=== PATIENT | male | born 1940 | race Caucasian/White ===

== ENCOUNTER 2021-09-09 02:23 | Outpatient (CLI) | payer MEDICARE, MEDICAID, SELFPAY ==
--- NOTE | 2021-09-09 07:45 | DI.US_ITS ---
Exam(s) US HERNIA EXAM: US HERNIA CLINICAL HISTORY: Right inguinal pain,? hernia,r10.31. TECHNIQUE: Ultrasound was performed using standard protocol. COMPARISON: No exams were available for comparison FINDINGS: Sonographic assessment utilizing grayscale and color Doppler imaging was performed and targeted to th e area of clinical concern. Targeted areas right groin. Left groin was also scanned for comparison purposes. There is no evidence of obvious inguinal hernia on the right side. However, multiple enlarged lymph nodes in the right groin are noted, the largest measuring 3.4 by 1.1 x 2.1 cm and 4.1 x 0.8 x 1.0 cm. We then scanned the left groin for comparison purposes. This also revealed enlarged lymph nodes, the largest measuring 4.4 x 1.0 x 2.0 cm. IMPRESSION: No obvious inguinal hernia but there are enlarged lymph nodes in both groin regions noted. DATA REPOSITORY:
== END 2021-09-09 02:43 ==
PROVIDERS: PCP Emergency Medicine; Visit Provider Nurse Practitioner Family
DX: R10.31 Right lower quadrant pain (principal); R59.0 Localized enlarged lymph nodes
CPT/HCPCS: 76857

== ENCOUNTER 2021-09-23 00:32 | Outpatient (CLI) | payer MEDICARE, MEDICAID, SELFPAY ==
--- NOTE | 2021-09-23 07:30 | DI.CT_ITS ---
Exam(s) CT ABDOMEN PELVIS W EXAM: CT ABDOMEN PELVIS W CLINICAL HISTORY: inguinal nodes,abnl wt loss, r63.4,r59.0. TECHNIQUE: Imaging Protocol: Axial computed tomography images with coronal and sagittal reformatted images were created and reviewed CONTRAST MATERIAL: Intravenous: Omnipaque 100cc Oral: Yes COMPARISON: CT CHEST FOR PULMONARY EMBOLUS from 07/21/2017 FINDINGS: VISUALIZED LUNG BASES: There is a small 4 millimeter nodule in the lateral right lung base lateral ba bernadine segment.. ABDOMEN: There is no ascites. There is abnormal density in the posterior wall of the stomach just beyond the GE junction region measuring approximately 3.6 x 2.6 cm. No other focal findings in the stomach. No bowel obstruction. No free air. No abscess there is anterior abdominal wall pelvic measures. No a cute hernia at this time. No inguinal hernia. LIVER: There are no focal hepatic lesions evident . GALLBLADDER/BILIARY: No obvious gallbladder pathology. CBD is not dilated. PANCREAS: No evidence of pancreatic mass nor dilatation of the pancreatic duct. SPLEEN: Spleen is not enlarged. No obvious intrasplenic lesions. Splenic and portal veins are paten t. ADRENALS: There are no significant adrenal masses. KIDNEYS:No cysts evident. No solid renal masses. No calculi nor hydronephrosis.. ABDOMINAL AORTA: Upper normal diameter. LYMPH NODES:There is no retroperitoneal nor paraaortic adenopathy. ABDOMINAL WALL: Anterior abdominal wall hernia mesh in the pelvis noted. GI: There is abnormal density in the posterior wall of the stomach just beyond the GE junction. Poss ible neoplasm. This measures approximately 3.6 x 2.6 cm. PELVIS: GI: No evidence of appendicitis.Sigmoid diverticulosis. No obvious acute diverticulitis. LYMPH NODES: No intrapelvic adenopathy. There are slightly enlarged bilateral inguinal lymph nodes b ut these contain fatty marylin and are probably benign. REPRODUCTIVE: Prostate size is upper normal. Seminal vesicles unremarkable. Urinary bladder is not distended URINARY BLADDER: No calculi nor obvious masses evident OSSEOUS: Channel from prior hardware in the left hip noted. Degenerative changes. No fractures nor ominous osseous lesions. IMPRESSION: 1. There is abnormal density in the posterior wall of the stomach just distal to the GE junction, thi s measuring approximately 3.6 x 2.6 cm. First consideration is for malignancy. Endoscopy recommende d. 2. No regional adenopathy. No lesions seen in the liver. There is no ascites. 3. Anterior abdominal wall hernia mesh in the pelvis noted. 4. Slightly prominent but benign-appearing lymph nodes in both inguinal regions. RADIATION DOSE DELIVERED: 922.31mGy.cm Total DLP DATA REPOSITORY: All CT scans at this facility are submitted to the National Radiology Data Registry (NRDR) Dose Index Registry (DIR) with the [employer] (A[employer]). RADIATION OPTIMIZATION: All CT scans at this facility use at least one of these dose optimization te chniques: automated exposure control; mA and/or kV adjustment per patient size (includes targeted exa ms where dose is matched to clinical indication); or iterative reconstruction.
[2021-09-23 09:53] LABS: Abs Immature Grans 0.06 10^3/uL (0.0-0.06); Absolute Basophil Count 0.08 10^3/uL (0.0-0.2); Absolute Eosinophil Count 0.65 10^3/uL (0.0-0.7); Absolute Monocyte Count 1.14 10^3/uL (0.1-0.8); Absolute Neutrophil Count 6.86 10^3/uL (1.2-6.7); Basophils % 0.6; Eosinophils % 5.1; HCT 44.5 % (40.0-50.0); HGB 14.2 g/dL (13.5-17.5); Immature Grans % 0.5; Lymphocytes % 31.3; MCH 29.4 pg (27.0-33.0); MCHC 31.9 % (32.0-36.0); MCV 92.1 fL (80-95); MPV 9.8 fL (8.0-11.0); Monocytes % 8.9; Neutrophils % 53.6; Nucleated RBC 0 %; Platelet Count 195 10^3/uL (130-400); RBC 4.83 10^6/uL (4.36-5.78); RDW 14.2 % (11.8-14.1); RDW-SD 48.1 fL; WBC 12.79 10^3/uL (4.4-10.8)
[2021-09-23 10:07] LABS: ALT 29 U/L (16-63); AST 33 U/L (15-37); Albumin 3.5 g/dL (3.4-5.0); Alkaline Phosphatase 117 U/L (46-116); Anion Gap 9.6 mmol/L (3-11); BUN 23 mg/dL (7-18); Bilirubin, Total 0.6 mg/dL (0.2-1.0); C-Reactive Protein 1.33 mg/dL (0.0-0.3); CO2 27.4 mmol/L (21.0-32.0); CREATININE 1.1 mg/dL (0.70-1.30); Chloride 103 mmol/L (98-107); Glucose 114 mg/dL (74-106); Potassium 3.7 mmol/L (3.5-5.1); Sodium 140 mmol/L (136-145); Total Protein 8.6 g/dL (6.4-8.2)
[2021-09-23] MEDS: Omnipaque 350 MG/ML 50 ML BTL PO (10:14)
[2021-09-23] MEDS: Breeza Beverage 473 ML BTL PO (10:15)
[2021-09-23] MEDS: Omnipaque 350 MG/ML 100 ML BTL IJ (11:19)
[2021-09-23] MEDS: Normal Saline Flush 10 ML SYR IVP (11:20)
[2021-09-23 18:38] LABS: PSA, Diagnostic 1.9 ng/mL (0.0-6.5)
[2021-09-24 10:12] LABS: Bilirubin Negative (Negative); Blood Negative (Negative); Clarity Clear (Clear); Glucose Negative (Negative); Ketones Negative (Negative); Leukocyte Esterase Negative (Negative); Nitrite Negative (Negative); Specific Gravity 1.015 (1.005-1.025); Urobilinogen 0.2 EU/dL (Up TO 0.2)
== END 2021-09-23 00:52 ==
PROVIDERS: PCP Emergency Medicine; Visit Provider Emergency Medicine
DX: R59.0 Localized enlarged lymph nodes (principal); R63.4 Abnormal weight loss; R93.5 Abnormal findings on diagnostic imaging of other abdominal regions, including retroperitoneum
CPT/HCPCS: 80053; 74177; 81003; 84153; 85025; 86140; J3490; Q9967

== ENCOUNTER → 2021-10-11 10:02 | Outpatient (BNVA) | payer MEDICARE, MEDICAID, SELFPAY | PROVIDERS: PCP Emergency Medicine; Referring Provider Emergency Medicine; Visit Provider Surgery | DX: R93.3 Abnormal findings on diagnostic imaging of other parts of digestive tract (principal); Z01.818 Encounter for other preprocedural examination | CPT/HCPCS: 99203 ==

== ENCOUNTER 2021-10-11 14:57 | Outpatient (REF) | payer MEDICARE, MEDICAID, SELFPAY ==
[2021-10-11 11:52] LABS: Source Nasal/Nares
[2021-10-11 16:11] LABS: COVID-19 PCR Negative (Negative)
== END 2021-10-11 14:58 | disposition home or self-care (01) ==
LOC: LBN 14:57
PROVIDERS: PCP Emergency Medicine; Visit Provider Surgery
DX: Z20.822 Contact with and (suspected) exposure to COVID-19 (principal); Z01.812 Encounter for preprocedural laboratory examination
CPT/HCPCS: 87635

== ENCOUNTER 2021-10-14 09:16 | Day surgery (SDC) | payer MEDICARE, MEDICAID, SELFPAY ==
--- NOTE | 2021-10-14 06:45 | W.PM.ENDDOP ---
Date of service: 10/14/21 Time of Service: 11:36 Endoscopy Report DATE OF PROCEDURE: 10/14/21 PRE-OP DIAGNOSIS: Abnormal CT scan POST-OP DIAGNOSIS: other (mild esophagitis) PROCEDURE: EGD with biopsies SURGEON: Sallie Chopra ANESTHESIA TYPE: General:No Airway (Jed Davila, TREMAYNE) ESTIMATED BLOOD LOSS: 3 PATHOLOGY: other (Bx of GE junction) COMPLICATIONS: None DISPOSITION: same day INDICATIONS: Alexander is a pleasant 81-year-old gentleman who had a CT scan abdomen and pelvis done for potential inguinal lymphadenopathy. The CT showed slightly prominent but benign-appearing lymph nodes in both inguinal areas. There were no inguinal hernias. It did find an abnormal density in the posterior wall of the stomach just distal to the GE junction. An upper endoscopy was recommended. The patient takes Pepcid twice a day for GERD. He does have some intermittent heartburn which usually goes away on its own. He does not complain of any epigastric or upper abdominal pain. He does not complain of weight loss, nausea or vomiting. He does not drink alcohol. He is an ex smoker. Differential includes cancer, gastritis. Risks, benefits and complications have been reviewed. Complications include but are not limited to bleeding, pain, perforation, sore throat, aspiration, and adverse reaction to the medications. Questions were entertained and answered to their satisfaction and they wished to proceed. No guarantees were given or implied. EGD under sedation FINDINGS: mild esophagitis PROCEDURE DESCRIPTION: After informed consent was obtained the patient was take to the procedure room and placed in a supine position. Monitors were applied and a time out was done. The patients name, date of , procedure type, allergies to medications and metal in their body was reviewed. A bite block was placed and the patient was sedated. Once sedated and comfortable the gastroscope was advanced through the oropharynx which was grossly normal into the esophagus. The proximal and mid-esophagus were normal. In the distal esophagus there was mild inflammation noted. The scope was advanced into the stomach and through the pylorus into the 3rd portion of the duodenum. The duodenum was noted to be normal. The scope was retracted back into the stomach. There was no inflammation noted. The scope was retroflexed. The cardia and fundus were noted to be normal. There was no hiatal hernia noted. The scope was retracted back into the esophagus and biopsies were done of the GE junction to rule out Sanchez's. The Z line was regular. The GE junction was at 36 cm. The scope was removed and the patient was woken up and taken back to [facility] in stable condition. Follow up: as needed with PCP
--- NOTE | 2021-10-14 06:46 | W.PM.DSUDISC ---
Discharge Plan Disposition Patient Disposition: HOME Condition: Good Discharge Details Reason For Visit: Abnormal Ct Attending Provider: Sallie Chopra Primary Care Provider: Amador Bryant Home Meds and New Rx's Prescriptions: Continued magnesium oxide 400 mg capsule 400 mg PO DAILY Qty: 30 RF: 6 aspirin [Ecotrin Low Strength] 81 MG tablet,delayed release (DR/EC) 1 tab PO DAILY RF: 0 famotidine 20 mg tablet 20 mg PO BID Qty: 180 RF: 3 atorvastatin [Lipitor] 40 mg tablet 40 mg PO QPM Qty: 90 RF: 4 cilostazol 50 mg tablet 50 mg PO DAILY Qty: 90 RF: 3 hydrochlorothiazide 12.5 mg capsule 12.5 mg PO DAILY Qty: 90 RF: 4 calcium carbonate-vitamin D3 1 EACH tablet 1 ea PO DAILY RF: 0 Centrum Silver 1 EACH tablet 1 tab PO DAILY RF: 0 Discharge Instructions Additional Instructions: Findings: mild inflammation in the esophagus Follow up: as needed Please call if you develop: fevers >101.5 Nausea or Vomiting Abdominal pain that is not transient Rectal bleeding that is more then a tbsp A hard abdomen and inability to pass gas DAY SURGERY UNIT POST ENDOSCOPY INSTRUCTIONS Instructions for everyone who is given Anesthesia: For your safety, please do the following for the next 24 Hours: a. Do not drive or operate dangerous equipment b. Do not drink alcohol beverages or use any recreational drugs for the first 24 hours or while taking pain medications. The medications in your body may have a reaction that can be dangerous. c. Do not make any important decisions or sign any important papers 1. Generally there are no restrictions on your activity after a day or so has gone by, but you may feel a bit fatigued for a few days. 2. After you arrive home you may have a light meal and return to a normal diet as you can tolerate it without feeling sick to your stomach. 3. After surgery, you may feel pain or discomfort. This should be only transient, but if it persists please contact your doctor. 4. If there are any questions regarding the findings of your procedure, please feel free to contact your doctor. 6. If you are unable to contact your doctor with a problem, contact the hospital at [phone]. 7. Continue all your regular medications unless directed otherwise. I understand the above instructions and have no questions. Signature of Patient or Responsible Adult Escort Date/Time Name of Responsible Adult Escort Signature of Nurse Date/Time Activity:: Activity as Tolerated Diet:: As Tolerated Discharge Orders Discharge Orders: Discharge Order (Routine); Ordered 10/14/21 Ordered By: Sallie Chopra
[2021-10-14 09:30] VITALS: BP 194/90; PULSE 75; RESP 20; TEMP 35.8; O2SAT 94
[2021-10-14] MEDS: Lactated Ringers 1,000 ML 80 ML IV (09:53)
--- NOTE | 2021-10-14 10:19 | W.ANESPRE ---
General Info Date of Service Date Performed: 10/14/21 Height: 5 ft 6 in Weight: 79.7 kg Body Mass Index (BMI): 28.3 Surgical Procedure: Operation Date: 10/14/21 10:50 Proposed Procedures Side Surgeon p Gastroscopy Sallie Chopra MD Meds Allergies and Home Medications Allergies Allergy/AdvReac Type Severity Reaction Status Date / Time No Known Allergies Allergy Verified 10/14/21 09:36 Home Medication Medication Instructions Recorded aspirin [Ecotrin Low Strength] 1 tab PO DAILY tab 02/15/13 calcium carbonate-vitamin D3 1 ea PO DAILY 04/12/13 Centrum Silver 1 tab PO DAILY 08/18/14 magnesium oxide 400 mg PO DAILY #30 cap 07/28/18 famotidine 20 mg tablet 20 mg PO BID #180 tab 03/18/21 atorvastatin 40 mg tablet 40 mg PO QPM #90 tab 04/01/21 cilostazol 50 mg tablet 50 mg PO DAILY #90 tab 08/13/21 hydrochlorothiazide 12.5 mg capsule 12.5 mg PO DAILY #90 cap 08/13/21 Current Visit Medications: Current Medications Generic Name Dose Route Start Last Admin Trade Name Freq PRN Reason Stop Dose Admin Hyoscyamine Sulfate 0.125 mg 10/14/21 06:47 Hyoscyamine 0.125 Mg Sl/Oral/Chew SL DIRECTED PRN Ringer's Solution 1,000 mls @ 80 mls/hr 10/14/21 06:00 10/14/21 09:53 IV 11/10/21 23:59 80 mls/hr INFUSION SANTHOSH Administration IV Miscellaneous Supplies 1 each 10/14/21 06:00 Iv Access IV 11/10/21 23:59 DIRECTED SANTHOSH Ondansetron HCl 4 mg 10/14/21 06:47 Ondansetron 4 Mg/2 Ml Vial IVP Q4H PRN PRN Nausea / Vomiting Sodium Chloride 0 ml 10/14/21 06:00 Normal Saline Flush 10 Ml Syr IV 11/10/21 23:59 PRN PRN Sodium Chloride 0 ml 10/14/21 06:00 Normal Saline 10 Ml Vial IJ 11/10/21 23:59 DIRECTED PRN Sterile Water 0 ml 10/14/21 06:00 Water,Injection,Sterile 10 Ml Vial IJ 11/10/21 23:59 DIRECTED PRN PFSH Active Problems Active Problems: Problem Status Onset Code Abnormal CT scan, gastrointestinal tract R93.[address] scan R93.89 Inguinal adenopathy R59.0 Umbilical hernia K42.9 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 Peripheral vascular disease I73.9 Hypertension I10 Diastasis recti M62.08 Chronic obstructive lung disease J44.9 Chest pain R07.9 Cardiac murmur R01.1 Arterial occlusion, 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 Elev transaminase/LDH R74.0 Medical History Medical History Aftercare for healing traumatic fracture of hip (08/25/12) LEFT HIP Arcus senilis Benign prostatic hyperplasia Right prostatic nodule with normal PSA Community acquired pneumonia Complete edentulism, unspecified History of tobacco use QUIT 2004 Hyperlipidemia Influenza Surgical History Surgical History Colonoscopy - MAC 2003 Fracture, Open Treatment (~08/2012) LEFT HIP Tobacco Smoking/Tobacco Use Status: Former Tobacco Use Alcohol Alcohol Intake: never Substance Use Substance use: Never Substance use type: does not use Vital Signs and Lab Results Vital Signs Most Recent Vital Signs in EMR: Most Recent Vital Signs Temp Pulse Resp BP Pulse Ox 35.8 C L 75 20 194/90 H 94 10/14/21 09:30 10/14/21 09:30 10/14/21 09:30 10/14/21 09:30 10/14/21 09:30 Lab Results Blood Type / Crossmatch: No Data to Display Complete Blood Count: White Blood Count 12.79 10^3/uL (4.4-10.8) H 09/23/21 09:45 09/23/21 Red Blood Count 4.83 10^6/uL (4.36-5.78) 09/23/21 09:45 09/23/21 Hemoglobin 14.2 g/dL (13.5-17.5) 09/23/21 09:45 09/23/21 Hematocrit 44.5 % (40.0-50.0) 09/23/21 09:45 09/23/21 Platelet Count 195 10^3/uL (130-400) 09/23/21 09:45 09/23/21 Complete Metabolic Panel: Sodium Level 140 mmol/L (136-145) 09/23/21 09:45 09/23/21 Potassium Level 3.7 mmol/L (3.5-5.1) 09/23/21 09:45 09/23/21 Chloride Level 103 mmol/L (98-107) 09/23/21 09:45 09/23/21 Carbon Dioxide Level 27.4 mmol/L (21.0-32.0) 09/23/21 09:45 09/23/21 Blood Urea Nitrogen 23 mg/dL (7-18) H 09/23/21 09:45 09/23/21 Creatinine 1.1 mg/dL (0.70-1.30) 09/23/21 09:45 09/23/21 Estimated GFR/1.73 m2 >= 60.00 (mL/min/1.73m2) 09/23/21 09:45 09/23/21 Calcium Level 9.0 mg/dL (8.5-10.1) 09/23/21 09:45 09/23/21 Albumin 3.5 g/dL (3.4-5.0) 09/23/21 09:45 09/23/21 Glucose Level 114 mg/dL (74-106) H 09/23/21 09:45 09/23/21 C-Reactive Protein 1.33 mg/dL (0.0-0.3) H 09/23/21 09:45 09/23/21 Liver Function Panel: Alanine Aminotransferase (ALT/SGPT) 29 U/L (16-63) 09/23/21 09:45 09/23/21 Aspartate Amino Transf (AST/SGOT) 33 U/L (15-37) 09/23/21 09:45 09/23/21 Coagulation Panel: No Data to Display Cardiac Panel: No Data to Display Arterial Blood Gas: No Data to Display Venous Blood Gas: No Data to Display Pancreas Panel: No Data to Display Thyroid Panel: No Data to Display Infectious Disease: Coronavirus (COVID-19)(PCR) Negative (Negative) 10/11/21 10:30 10/11/21 Coronavirus 2019 Source Nasal/Nares 10/11/21 10:30 10/11/21 Blood Cultures: No Data to Display Toxicology Panel: No Data to Display Imaging and Studies Imaging and Studies Study information below may be from another EMR and interpreted by another provider. Please see original notes in EMR for more complete details. Stress Test Summary: Summary: 1. Myocardial perfusion imaging: No myocardial perfusion defects noted. 2. The calculated left ventricular ejection fraction after stress: 55%. LV global systolic function is normal. No left ventricular regional motion abnormality. Echocardiogram Summary: 1. Left ventricle: The cavity size was below normal. Wall thickness was increased increased in a pattern of mild to moderate LVH. Systolic function was normal. The estimated ejection fraction was 60-65%. There was mild dynamic obstruction at rest in the outflow tract, with a peak gradient of 16mm Hg. Wall motion was normal; there were no regional wall motion abnormalities. 2. Right ventricle: The cavity size was normal. Wall thickness was normal. Systolic function was normal. 3. Inferior vena cava: The vessel was small. Anesthesia Assessment and Plan Anesthesia History Personal History: No History of Anesthesia Complications Family History: No Family History of Anesthesia Complications Exercise Tolerance Exercise Tolerance: Metabolic Equivalents>4 Pertinent Negatives Pertinent Negatives: No Symptoms of GERD, No Major Cardiovascular Symptoms or Complaints, No Major Pulmonary Symptoms or Complaints and No History of CVA/TIA Cardiac & Pulmonary Exam Cardiac Exam: Normal S1/S2 Heart Sounds Pulmonary Exam: Clear Bilateral Breath Sounds Implantable Cardiac Device Does patient have a Pacemaker or an ICD?: No Airway Exam Known Difficult Airway: No Mallampati Class: 2 Mouth Opening: Normal (> 3cm) Thyromental Distance: Greater than 3 cm Neck Range of Motion: Full ROM Neck Circumference: Normal Teeth Condition: Edentulous ASA Classification ASA Score: ASA 3 Emergency Case?: No NPO Status NPO Status: NPO Clears >2 hours, Solids >8 hours Anesthesia Plan Resuscitation Status: Full Code Anesthesia Technique: General Anesthesia Airway Planned: Natural Airway Monitors Used: Standard Monitors
[2021-10-14 10:37] VITALS: BMI 28.3
--- NOTE | 2021-10-14 11:30 | ESO_PTH ---
PATIENT: Alexander Rodriguez LOC: [facility] U#:[id number] AGE/SX: 81/M ROOM: RE10/14/[address]: Sallie Chopra MD : 1940 BED: DIS: 10/14/2021 SPEC #: [id number] RECD: 10/14/21 13:05 STATUS: ZAINAB REMarko #: [id number] CARLOS: 10/14/21 11:[address]: Sallie Chopra DEPT: Surgical Specimen RECD BY: Sara Martínez ENTERED: 10/14/21 13:06 SP TYPE: Eso OTHR DR: Amador Bryant DO Tissues: 1 - ESOPHAGUS BIOPSY Procedures: GROSS AND MICRO LEVEL 4 Comments: [id number]
[2021-10-14 11:43] VITALS: BP 125/71; PULSE 64; RESP 16; TEMP 35.4; O2SAT 94
--- NOTE | 2021-10-14 11:43 | W.ANESPOSTOP ---
Postoperative Evaluation Date, Time and Location Date Performed: 10/14/21 Time Performed: 11:43 Patient Location: Day Surgery Unit Vital Signs Most Recent Imported Vital Signs: Most Recent Vital Signs Temp Pulse Resp BP Pulse Ox 35.8 C L 75 20 194/90 H 94 10/14/21 09:30 10/14/21 09:30 10/14/21 09:30 10/14/21 09:30 10/14/21 09:30 Most Recent Manually Entered Vital Signs: Adult Blood Pressure: 125/71 Heart Rate: 64 Respirations: 16 Oxygen Saturation (%): 97 Temperature (C): 35.4 C Pain Score (0-10 Scale): 0 Assessment Mental Status: Arousable with meaningful communication Airway and Respiratory Function: Patent airway with normal (patient baseline) respiratory exam Cardiovascular Function: Hemodynamically Stable Hydration Status: Adequately Hydrated Nausea & Vomiting: No Nausea or Vomiting Pain: Pt. Denies Any Pain Peripheral Nerve Block: Patient did not receive a nerve block
[2021-10-14 11:45] VITALS: BP 125/71; PULSE 64; RESP 16; TEMPC 35.4; O2SAT 97
[2021-10-14 12:04] VITALS: BP 155/95; PULSE 67; RESP 16; TEMP 35.8; O2SAT 94
== END 2021-10-14 12:35 | disposition home or self-care (01) ==
LOC: SUR 09:16
PROVIDERS: PCP Emergency Medicine; Visit Provider Surgery
PROC: 0DJ68ZZ Inspection of Stomach, Via Natural or Artificial Opening Endoscopic (ICD-10-PCS; CPT 43235; principal; 2021-10-14 10:45)
DX: R93.3 Abnormal findings on diagnostic imaging of other parts of digestive tract (principal); K21.00 Gastro-esophageal reflux disease with esophagitis, without bleeding; K22.70 Barrett's esophagus without dysplasia
CPT/HCPCS: 43239; 88305

== ENCOUNTER 2021-12-12 21:18 | Outpatient (CLI) | payer MEDICARE, MEDICAID, SELFPAY ==
--- NOTE | 2021-12-12 14:15 | DI.US_ITS ---
Exam(s) US LOWER EXTREMITY VENOUS RT EXAM: US LOWER EXTREMITY VENOUS RT CLINICAL HISTORY: R/O DVT,increased pain, swelling, redness, cellulitis TECHNIQUE: Right lower extremity venous ultrasound performed using grayscale, color-flow, and spectr al Doppler analysis. COMPARISON: No exams were available for comparison FINDINGS: The right common femoral, femoral and popliteal veins demonstrate normal compressibility, augmentatio n, and color Doppler. The posterior tibial veins are patent. The saphenofemoral junction is unremark able. There is thrombus seen in the greater saphenous vein extending into the ankle. It measures ap proximately 35 cm. The proximal aspect of the thrombus lies greater than 6 cm from the saphenofemora l junction. There is no evidence of a Cates cyst. The soft tissues are unremarkable. IMPRESSION: 1. No DVT. 2. Superficial thrombophlebitis. DATA REPOSITORY:
== END 2021-12-12 21:38 ==
PROVIDERS: PCP Nurse Practitioner Family; Visit Provider Nurse Practitioner Family
DX: M79.604 Pain in right leg (principal); M79.89 Other specified soft tissue disorders; R23.8 Other skin changes; I82.811 Embolism and thrombosis of superficial veins of right lower extremity
CPT/HCPCS: 93971

== ENCOUNTER 2022-02-06 14:13 | Outpatient (CLI) | payer MEDICARE, MEDICAID, SELFPAY ==
--- NOTE | 2022-02-06 | DI.US_ITS ---
Exam(s) US LOWER EXTREMITY VENOUS RT EXAM: US LOWER EXTREMITY VENOUS RT CLINICAL HISTORY: RT LOWER LEG PAIN, M79.661. TECHNIQUE: Ultrasound performed using standard protocol. COMPARISON: US US LOWER EXTREMITY VENOUS RT from 12/12/2021 FINDINGS: Duplex venous ultrasound was performed according to the usual protocol. The deep veins are freely com pressible throughout and there is normal flow augmentation with manual calf compression. 2D and Doppl er evaluation are unremarkable. IMPRESSION: No evidence of deep venous thrombosis of the right lower extremity. DATA REPOSITORY:
== END 2022-02-06 14:33 ==
PROVIDERS: PCP Nurse Practitioner Family; Visit Provider Podiatrist Foot & Ankle Surgery
DX: M79.661 Pain in right lower leg (principal)
CPT/HCPCS: 93971

== ENCOUNTER 2022-07-18 15:35 | Outpatient (REF) | payer MEDICARE, MEDICAID, SELFPAY | END 2022-07-18 15:36 | disposition home or self-care (01) | LOC: LBN 15:35 | PROVIDERS: PCP Nurse Practitioner Family; Visit Provider Physician Assistant | DX: N39.0 Urinary tract infection, site not specified (principal) | CPT/HCPCS: 87086 ==

== ENCOUNTER → 2022-07-22 12:55 | Outpatient (BNVA) | payer MEDICARE, MEDICAID, SELFPAY | PROVIDERS: PCP Nurse Practitioner Family; Referring Provider Nurse Practitioner Family; Visit Provider Nurse Practitioner Gerontology | DX: N47.1 Phimosis (principal); R39.89 Other symptoms and signs involving the genitourinary system; C67.9 Malignant neoplasm of bladder, unspecified; N40.2 Nodular prostate without lower urinary tract symptoms; N40.0 Benign prostatic hyperplasia without lower urinary tract symptoms | CPT/HCPCS: 36415; 51798; 81003; 99215 ==

== ENCOUNTER 2022-07-22 14:17 | Outpatient (REF) | payer MEDICARE, MEDICAID, SELFPAY ==
--- NOTE | 2022-07-22 13:30 | PAPNONF_PTH ---
PATIENT: Alexander Rodriguez LOC: [facility][id number] AGE/SX: 82/M ROOM: RE07/22/[address]: Ermelinda Lopez DNP : 1940 BED: DIS: 07/22/2022 SPEC #: [id number] RECD: 07/22/22 17:43 STATUS: ZAINAB REQ #: [id number] CARLOS: 07/22/22 13:[address]: Ermelinda Lopez DEPT: [facility] Cytology RECD BY: Sara Martínez ENTERED: 07/22/22 17:43 SP TYPE: LEVON BURNS DR: Erich Long, [place] Tissues: 1 - BODY FLUID CYTO(SPUTUM/URINE)UV Procedures: BODY FLUID CYTO(URINE/SPUTUM) Comments: [id number] (TOTAL VOLUME = 70 ml) (35 ml URINE & 35 ml CYTOLYT ADDED IN 2 CONTAINERS)
[2022-07-23 18:02] LABS: PSA, Screening 2.1 ng/mL (<=6.5)
== END 2022-07-22 14:18 | disposition home or self-care (01) ==
LOC: NCHCN 14:17
PROVIDERS: PCP Nurse Practitioner Family; Visit Provider Nurse Practitioner Gerontology
DX: N40.2 Nodular prostate without lower urinary tract symptoms (principal); C61 Malignant neoplasm of prostate; Z12.5 Encounter for screening for malignant neoplasm of prostate
CPT/HCPCS: 84153; 88104

== ENCOUNTER 2022-08-04 07:05 | Day surgery (SDC) | payer MEDICARE, MEDICAID, SELFPAY ==
[2022-08-04] VITALS (7 sets, daily range): BP systolic 116–165; BP diastolic 64–82; PULSE 57–75; RESP 16–18; TEMP 36–36.5; O2SAT 93–96; BMI 25.9
--- NOTE | 2022-08-04 07:55 | W.ANESPRE ---
General Info Date of Service Date Performed: 08/04/22 Height: 5 ft 7 in Weight: 75.3 kg Body Mass Index (BMI): 25.9 Surgical Procedure: Operation Date: 08/04/22 08:55 Proposed Procedure Side Surgeon p Cystoscopy Yovani Hodge MD s Circumcision Yovani Hodge MD Meds Allergies and Home Medications Allergies Allergy/AdvReac Type Severity Reaction Status Date / Time No Known Allergies Allergy Verified 08/04/22 07:15 Home Medication Medication Instructions Recorded aspirin 81 mg tablet,delayed 1 tab PO DAILY 02/15/13 release (Ecotrin Low Strength) calcium carbonate 600 mg-vitamin 1 ea PO DAILY 04/12/13 D3 5 mcg (200 unit) tablet vobhhknv-ykl-tlrbu acid 0.4 1 tab PO DAILY 08/18/14 mg-lycopene 300 mcg-lutein 250 mcg tablet (Centrum Silver) magnesium oxide 400 mg PO DAILY #30 caps 07/28/18 omeprazole 20 mg capsule,delayed 20 mg PO DAILY #60 caps 10/22/21 release hydrochlorothiazide 50 mg tablet 50 mg PO DAILY #90 tabs 12/30/21 mupirocin 2 % topical ointment 1 applic topical BID #22 grams 01/13/22 triamcinolone acetonide 0.1 % 1 applic topical BID #80 grams 04/21/22 topical ointment atorvastatin 40 mg tablet (Lipitor) 40 mg PO QPM #90 tabs 06/18/22 cilostazol 50 mg tablet 50 mg PO DAILY #90 tabs 06/18/22 nystatin 100,000 unit/gram topical 1 applic topical TID #15 grams 07/18/22 cream tamsulosin 0.4 mg capsule (Flomax) 0.4 mg PO DAILY #90 caps 07/22/22 acetaminophen 500 mg tablet 1,000 mg PO 08/04/22 (Acetaminophen Extra Strength) Current Visit Medications: Current Medications Generic Name Dose Route Start Last Admin Trade Name Freq PRN Reason Stop Dose Admin Ringer's Solution 1,000 mls @ 80 mls/hr 08/04/22 06:00 IV 08/31/22 23:59 INFUSION SANTHOSH Cefazolin Sodium/Dextrose 2 gm in 50 mls @ 100 mls/hr 08/04/22 06:00 Ancef Duplex IVPB 08/04/22 16:00 PREOP SANTHOSH IV Miscellaneous Supplies 1 each 08/04/22 06:00 Iv Access IV 08/31/22 23:59 DIRECTED SANTHOSH Sodium Chloride 0 ml 08/04/22 06:00 Normal Saline Flush 10 Ml Syr IV 08/31/22 23:59 PRN PRN Sodium Chloride 0 ml 08/04/22 06:00 Normal Saline 10 Ml Vial IJ 08/31/22 23:59 DIRECTED PRN Sterile Water 0 ml 08/04/22 06:00 Water,Injection,Sterile 10 Ml Vial IJ 08/31/22 23:59 DIRECTED PRN PFSH Active Problems Active Problems: Problem Status Onset Code Elev transaminase/LDH R74.0 Arterial occlusion, 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 Cardiac murmur R01.1 Chest pain R07.9 Chronic obstructive lung disease J44.9 Diastasis recti M62.08 Hypertension I10 Peripheral vascular disease I73.9 Umbilical hernia K42.9 Inguinal adenopathy R59.[address] scan, gastrointestinal tract R93.3 Esophagitis ~09/2021 K20.90 Esophageal reflux ~09/2021 K21.9 Sanchez's esophagus ~09/2021 K22.70 Venous insufficiency of right lower extremity I87.2 Cellulitis L03.90 Stasis dermatitis I87.2 Prostate nodule N40.2 Phimosis of penis N47.1 Medical History Medical History Aftercare for healing traumatic fracture of hip (08/25/12) LEFT HIP Arcus senilis Benign prostatic hyperplasia Right prostatic nodule with normal PSA Community acquired pneumonia Complete edentulism, unspecified History of fracture of hip History of tobacco use QUIT 2004 Hyperlipidemia Influenza Primary malignant neoplasm of bladder (04/06/13) Surgical History Surgical History (Updated 08/04/22 @ 07:24 by Celsa Gonzalez) Colonoscopy - [facility] 2004 Fracture, Open Treatment (~08/2012) LEFT HIP History of esophagogastroduodenoscopy (EGD) (~09/2021) Hx of cystoscopy Hx of vein stripping pt.report vein in R leg removed and replaced with another Tobacco Smoking/Tobacco Use Status: Former Tobacco Use Alcohol Alcohol Intake: never Substance Use Substance use: Never Substance use type: does not use Vital Signs and Lab Results Vital Signs Most Recent Vital Signs in EMR: Most Recent Vital Signs Temp Pulse Resp BP Pulse Ox 36.5 C 75 16 144/80 H 95 08/04/22 07:41 08/04/22 07:41 08/04/22 07:41 08/04/22 07:41 08/04/22 07:41 Lab Results Blood Type / Crossmatch: No Data to Display Complete Blood Count: No Data to Display Complete Metabolic Panel: No Data to Display Liver Function Panel: No Data to Display Coagulation Panel: No Data to Display Cardiac Panel: No Data to Display Arterial Blood Gas: No Data to Display Venous Blood Gas: No Data to Display Pancreas Panel: No Data to Display Thyroid Panel: No Data to Display Infectious Disease: No Data to Display Blood Cultures: No Data to Display Toxicology Panel: No Data to Display Imaging and Studies Imaging and Studies Study information below may be from another EMR and interpreted by another provider. Please see original notes in EMR for more complete details. Stress Test Summary: Summary: 1. Myocardial perfusion imaging: No myocardial perfusion defects noted. 2. The calculated left ventricular ejection fraction after stress: 55%. LV global systolic function is normal. No left ventricular regional motion abnormality. Echocardiogram Summary: 1. Left ventricle: The cavity size was below normal. Wall thickness was increased increased in a pattern of mild to moderate LVH. Systolic function was normal. The estimated ejection fraction was 60-65%. There was mild dynamic obstruction at rest in the outflow tract, with a peak gradient of 16mm Hg. Wall motion was normal; there were no regional wall motion abnormalities. 2. Right ventricle: The cavity size was normal. Wall thickness was normal. Systolic function was normal. 3. Inferior vena cava: The vessel was small. Anesthesia Assessment and Plan Anesthesia History Personal History: No History of Anesthesia Complications Family History: No Family History of Anesthesia Complications Exercise Tolerance Exercise Tolerance: Metabolic Equivalents>4 Pertinent Negatives Pertinent Negatives: No Symptoms of GERD Cardiac & Pulmonary Exam Cardiac Exam: Normal S1/S2 Heart Sounds Pulmonary Exam: Clear Bilateral Breath Sounds Implantable Cardiac Device Does patient have a Pacemaker or an ICD?: No Airway Exam Known Difficult Airway: No Mallampati Class: 2 Mouth Opening: Normal (> 3cm) Thyromental Distance: Less than 3 cm Neck Range of Motion: Full ROM Neck Circumference: Normal Teeth Condition: Edentulous ASA Classification ASA Score: ASA 3 Emergency Case?: No NPO Status NPO Status: NPO Clears >2 hours, Solids >8 hours Anesthesia Plan Resuscitation Status: Full Code Anesthesia Technique: General Anesthesia Airway Planned: Natural Airway Monitors Used: Standard Monitors
[2022-08-04] MEDS: Lactated Ringers 1,000 ML 80 ML IV (08:00)
--- NOTE | 2022-08-04 08:16 | HPE_ITS ---
Date of service: 08/04/22 Time of Service: 08:16 Assessment and Plan Assessment and plan (1) Phimosis of penis: Status: Acute Assessment and plan: For circumcision (2) History of bladder cancer: Assessment and plan: We will do a cystoscopy. If there is any abnormalitiy identified, we will be prepared to take a biopsy or a TURBT. History of Present Illness History of Present Illness Chief Complaint: Phimosis Narrative: Mr. Rodriguez is an 82-year-old male with an extensive urology history that was referred to us by express care for concerns of abnormal foreskin.? Patient notes that he has not been able to retract the foreskin for some time.? He finds that its tender and he notes he is currently being treated for a yeast infection to the area.? He also finds that his stream will be affected because of the foreskin occluding the meatal opening.? He presents for circumcision. He has a history of bladder cancer. We do not have details regarding his pathology results or exact treatments, but it sounds as if he received intravesical treatments. His last surveillance cystoscopy was over 5 years ago. He is agreeable to cystoscopy with possible biopsy/TUR bladder tumor under the same anesthetic. Review of Systems Narrative: No fevers or chills No vision change No diabetes or thyroid dysfunction No shortness of breath, cough or hemoptysis No chest pain or palpitations Hx esophagitis. No hepatitis, jaundice, diarrhea No seizures, strokes or peripheral neuropathy No bleeding disorders or anemia No gout PFSH All Active Problems (Updated 08/04/22 @ 08:35 by Yovani Hodge MD) Elev transaminase/LDH (Acute) Arterial occlusion, lower extremity (Acute) B/L Cardiac murmur (Acute) ? mild aortic stenosis Chest pain (Acute) Chest pain with abnormal EKG neg MPI 09/08, repeated 08/11 still neg. echo also neg. Chronic obstructive lung disease (Acute) Diastasis recti (Acute) Hypertension (Acute) Stress test, 1999, with hypertensive response Peripheral vascular disease (Acute) Being actively followed by [facility] [place] Umbilical hernia (Acute) Inguinal adenopathy (Acute) Abnormal CT scan, gastrointestinal tract (Acute) Esophagitis (Acute ~09/2021) Esophageal reflux (Chronic ~09/2021) Sanchez's esophagus (Acute ~09/2021) Venous insufficiency of right lower extremity (Acute) Cellulitis (Acute) Stasis dermatitis (Acute) 03/2022 bilateral and chronic Prostate nodule (Acute) Phimosis of penis (Acute) Medical History (Updated 08/04/22 @ 08:35 by Yovani Hodge MD) Aftercare for healing traumatic fracture of hip (08/25/12) LEFT HIP Arcus senilis Benign prostatic hyperplasia Right prostatic nodule with normal PSA Community acquired pneumonia Complete edentulism, unspecified History of bladder cancer History of fracture of hip History of tobacco use QUIT 2004 Hyperlipidemia Influenza Primary malignant neoplasm of bladder (04/06/13) Surgical History (Updated 08/04/22 @ 07:24 by Celsa Gonzalez) Colonoscopy - [facility] [place] 2004 Fracture, Open Treatment (~08/2012) LEFT HIP History of esophagogastroduodenoscopy (EGD) (~09/2021) Hx of cystoscopy Hx of vein stripping pt.report vein in R leg removed and replaced with another Social History Smoking/Tobacco Use Status: Former Tobacco Use Quit Date: 10/26/00 Smoking risk assessment performed?: Yes Alcohol Intake: never Drug use: Never Substance use type: does not use Do you feel safe at home: Yes Additional Social history: unable to assess [facility] [employer] Allergies and Home Medications Allergies Allergy/AdvReac Type Severity Reaction Status Date / Time No Known Allergies Allergy Verified 08/04/22 07:15 Home Medications Medication Instructions Recorded Confirmed Type aspirin 81 mg tablet,delayed 1 tab PO DAILY 02/15/13 08/04/22 History release (Ecotrin Low Strength) calcium carbonate 600 mg-vitamin 1 ea PO DAILY 04/12/13 08/04/22 History D3 5 mcg (200 unit) tablet galijlab-tjm-vjfae acid 0.4 1 tab PO DAILY 08/18/14 08/04/22 History mg-lycopene 300 mcg-lutein 250 mcg tablet (Centrum Silver) magnesium oxide 400 mg PO DAILY #30 caps 07/28/18 08/04/22 Rx omeprazole 20 mg capsule,delayed 20 mg PO DAILY #60 caps 10/22/21 08/04/22 Rx release hydrochlorothiazide 50 mg tablet 50 mg PO DAILY #90 tabs 12/30/21 08/04/22 Rx mupirocin 2 % topical ointment 1 applic topical BID #22 grams 01/13/22 08/04/22 Rx triamcinolone acetonide 0.1 % 1 applic topical BID #80 grams 04/21/22 08/04/22 Rx topical ointment atorvastatin 40 mg tablet (Lipitor) 40 mg PO QPM #90 tabs 06/18/22 08/04/22 Rx cilostazol 50 mg tablet 50 mg PO DAILY #90 tabs 06/18/22 08/04/22 Rx nystatin 100,000 unit/gram topical 1 applic topical TID #15 grams 07/18/22 08/04/22 Rx cream tamsulosin 0.4 mg capsule (Flomax) 0.4 mg PO DAILY #90 caps 07/22/22 08/04/22 Rx acetaminophen 500 mg tablet 1,000 mg PO 08/04/22 History (Acetaminophen Extra Strength) Exam Const General: comfortable Neck Neck: supple Resp Auscultation: clear to auscultation bilaterally Cardio Rate: regular rate Rhythm: regular rhythm Penis: phimosis Neuro General: patient alert and patient awake Results Last Vital Signs Temp 36.5 C 08/04/22 07:41 Pulse 75 08/04/22 07:41 Resp 16 08/04/22 07:41 BP 144/80 H 08/04/22 07:41 Pulse Ox 95 08/04/22 07:41
[2022-08-04] MEDS: ceFAZolin 2 GM/50 ML BAG IVPB (09:08)
[2022-08-04] MEDS: Bupivacaine 0.5% Pres-Free 30 ML VIAL (09:51)
[2022-08-04] MEDS: Lidocaine 2% Jelly 6 ML SYR (09:51)
--- NOTE | 2022-08-04 09:57 | W.PM.DSUDISC ---
Discharge Plan Disposition Patient Disposition: HOME Condition: Good Discharge Details Attending Provider: Yovani Hodge Primary Care Provider: Erich Long Home Meds and New Rx's Prescriptions: No Action omeprazole 20 mg capsule,delayed release(DR/EC) 20 mg PO DAILY Qty: 60 6RF mupirocin 2 % ointment 1 applic topical BID Qty: 22 0RF magnesium oxide 400 mg capsule 400 mg PO DAILY Qty: 30 6RF hydrochlorothiazide 50 mg tablet 50 mg PO DAILY Qty: 90 3RF triamcinolone acetonide 0.1 % ointment 1 applic topical BID Qty: 80 0RF Rx Instructions: to affected area on legs nystatin 100,000 unit/gram cream 1 applic topical TID Qty: 15 0RF tamsulosin [Flomax] 0.4 mg capsule 0.4 mg PO DAILY Qty: 90 1RF aspirin [Ecotrin Low Strength] 81 MG tablet,delayed release (DR/EC) 1 tab PO DAILY atorvastatin [Lipitor] 40 mg tablet 40 mg PO QPM Qty: 90 4RF cilostazol 50 mg tablet 50 mg PO DAILY Qty: 90 3RF calcium carbonate-vitamin D3 1 EACH tablet 1 ea PO DAILY Centrum Silver 1 EACH tablet 1 tab PO DAILY acetaminophen [Acetaminophen Extra Strength] 500 mg Tablet 1,000 mg PO Discharge Instructions Additional Instructions: OK to shower/bathe and remove dressing tomorrow AM Followup 1 to 2 weeks for wound check (not pathology) Activity:: Activity as Tolerated Remove Dressings/Wound Care:: 24 hours Shower/Bathe:: 24 hours Diet:: As Tolerated Discharge Orders Discharge Orders: Discharge Order (Routine); Ordered 08/04/22 Ordered By: Yovani Hodge DS: Diagnosis Discharge Diagnosis (1) Phimosis of penis: Status: Acute (2) History of bladder cancer:
--- NOTE | 2022-08-04 10:01 | ROE_ITS ---
Date of service: 08/04/22 Time of Service: 10:01 Operative Note Operative Note DATE OF PROCEDURE: 08/04/22 PRE-OP DIAGNOSIS: 1. Phimosis 2. History bladder cancer POST-OP DIAGNOSIS: same PROCEDURE: 1. Circumcision 2. Cystoscopy SURGEON: Yovani Hodge ANESTHESIA TYPE: Local By Surgeon and General:No Airway Refer to Anesthesia Record ESTIMATED BLOOD LOSS: 25 PATHOLOGY: none sent COMPLICATIONS: None Implants: none Indications: This is an 82-year-old gentleman who is no longer able to retract his foreskin. He has had recurrent infections and disruption of his urinary stream. He presents for circumcision. 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 I am not certain about the stage or grade of his previous tumor, but by history, it sounds as if he was treated with intravesical chemotherapy or immunotherapy. His last surveillance cystoscopy was over 5 years ago. He is agreeable to a surveillance cystoscopy at the same time he has the circumcision. Findings: no recurrent bladder tumor Procedure Description: The patient was brought to the operating room on 08/04/2022. After successful induction of general anesthesia without intubation, he was placed in the dorsal lithotomy position. His genitalia was prepped and draped. A penile field block was performed using quarter percent Marcaine. A circumferential incision was made on the outer aspect of the foreskin at approximately the level of the coronal sulcus. A dorsal slit was then performed and a second circumferential incision was made on the inner aspect of the foreskin approximately 2 cm below the coronal sulcus. The redundant skin was excised. Any bleeding points that were encountered were cauterized using the Bovie. The skin edges were reapproximated using simple interrupted 4-0 chromic sutures. Once the circumcision was completed, cystoscopy was performed. We injected 2% Xylocaine jelly into the urethra to act as a local anesthetic. A 17 [place] cystoscope was passed through the urethra into the bladder. The urethra and bladder were inspected using both a 30 and 70 degree lens. The pendulous, bulbar and membranous urethra's appeared normal with no strictures. The prostatic urethra showed some lateral lobe enlargement but no papillary mucosal changes. The bladder neck was entered and the bladder mucosa was inspected. Both ureteral orifices appeared normal with no blood coming from either side. No papillary or nodular lesions were seen throughout the bladder. The bladder was mildly trabeculated. Based on the cystoscopy, we find no evidence of tumor recurrence. The bladder was emptied. The cystoscope was removed.
--- NOTE | 2022-08-04 10:21 | W.PM.DSUDISC ---
Discharge Plan Disposition Patient Disposition: HOME Condition: Good Discharge Details Attending Provider: Yovani Hodge Primary Care Provider: Erich Long Home Meds and New Rx's Prescriptions: New tramadol 50 mg tablet 50 mg PO Q8H PRN (Reason: pain) Qty: 10 0RF Rx Instructions: may take with tylenol No Action omeprazole 20 mg capsule,delayed release(DR/EC) 20 mg PO DAILY Qty: 60 6RF mupirocin 2 % ointment 1 applic topical BID Qty: 22 0RF magnesium oxide 400 mg capsule 400 mg PO DAILY Qty: 30 6RF hydrochlorothiazide 50 mg tablet 50 mg PO DAILY Qty: 90 3RF triamcinolone acetonide 0.1 % ointment 1 applic topical BID Qty: 80 0RF Rx Instructions: to affected area on legs nystatin 100,000 unit/gram cream 1 applic topical TID Qty: 15 0RF tamsulosin [Flomax] 0.4 mg capsule 0.4 mg PO DAILY Qty: 90 1RF aspirin [Ecotrin Low Strength] 81 MG tablet,delayed release (DR/EC) 1 tab PO DAILY atorvastatin [Lipitor] 40 mg tablet 40 mg PO QPM Qty: 90 4RF cilostazol 50 mg tablet 50 mg PO DAILY Qty: 90 3RF calcium carbonate-vitamin D3 1 EACH tablet 1 ea PO DAILY Centrum Silver 1 EACH tablet 1 tab PO DAILY acetaminophen [Acetaminophen Extra Strength] 500 mg Tablet 1,000 mg PO Discharge Instructions Additional Instructions: OK to shower/bathe and remove dressing tomorrow AM Followup 1 to 2 weeks for wound check (not pathology) Activity:: Activity as Tolerated Remove Dressings/Wound Care:: 24 hours Shower/Bathe:: 24 hours Diet:: As Tolerated Discharge Orders Discharge Orders: Discharge Order (Routine); Ordered 08/04/22 Ordered By: Yovani Hodge DS: Diagnosis Discharge Diagnosis (1) Phimosis of penis: Status: Acute (2) History of bladder cancer:
--- NOTE | 2022-08-04 11:01 | W.ANESPOSTOP ---
Postoperative Evaluation Date, Time and Location Date Performed: 08/04/22 Time Performed: 10:55 Patient Location: Day Surgery Unit Vital Signs Most Recent Imported Vital Signs: Most Recent Vital Signs Temp Pulse Resp BP Pulse Ox 36.2 C L 57 L 18 143/82 H 95 08/04/22 10:40 08/04/22 10:40 08/04/22 10:40 08/04/22 10:40 08/04/22 10:40 Pain Score Most Recent Pain Score: Most Recent Pain Score Pain Level 0 08/04/22 10:40 Assessment Mental Status: Arousable with meaningful communication Airway and Respiratory Function: Patent airway with normal (patient baseline) respiratory exam Cardiovascular Function: Hemodynamically Stable Hydration Status: Adequately Hydrated Nausea & Vomiting: No Nausea or Vomiting Pain: Pt. Denies Any Pain Peripheral Nerve Block: Patient did not receive a nerve block
--- NOTE | 2022-08-04 11:30 | RT.EKG_ITS ---
APPROVED REPORT Exam: Resting ECG Reason for Exam: chest pain Patient Location: O HR:59 bpm ECG Measurements Heart Rate 59 AXIS FL 76 P 26 QRSd 93 QRS 17 QT 432 T 76 QTc 428 Conclusion Sinus bradycardia...rate< 60 Possible inferolateral infarct, old...Q >40mS, inf-lat leads
[2022-08-04 12:49] LABS: Troponin I 142 ng/L (<or=60)
--- NOTE | 2022-08-04 13:18 | PDOC.ANES ---
Date of service: 08/04/22 Time of Service: 13:18 Anesthesia Note Report Anesthesia Note: LUIS ALBERTO Cornell from DSU reported to anesthesia that patient had new onset of left sided chest pain, no acute shortness of breath or diaphoresis. Wanda Davila CRNA at bedside and reports information to Gabriela Keller CRNA. Patient was assessed again at bedside and reports this is similiar to episodes he has experienced previously that were negative. 12-lead EKG was ordered, reviewed, and no acute changes. Rule out troponin was additionally ordered and reported back as critical to Shun Azar RN, DSU at 12:46. Dr. Hodge made aware, as well as hospitalist team. Plan for patient to be transferred to ER for further evaluation. Patient informed of laboratory findings and agrees to be further evaluated in ER. Dr. Guadarrama given verbal report. Patient transferred care to ER.
== END 2022-08-04 07:06 | disposition home or self-care (01) ==
PROVIDERS: Student in an Organized Health Care Education/Training Program; PCP Nurse Practitioner Family; Visit Provider Urology
PROC: 0TJB8ZZ Inspection of Bladder, Via Natural or Artificial Opening Endoscopic (ICD-10-PCS; CPT 52000; principal; 2022-08-04 08:45)
PROC: (CPT 54161; 2022-08-04 08:45)
DX: N47.1 Phimosis (principal); Z85.51 Personal history of malignant neoplasm of bladder
CPT/HCPCS: 54161; 52000; 36415; 84484; 93005; 93010; J0690; J3010

== ENCOUNTER 2022-08-04 13:11 | Inpatient (IN) | payer MEDICARE, MEDICAID, SELFPAY ==
[2022-08-04] VITALS (33 sets, daily range): BP systolic 111–173; BP diastolic 53–90; PULSE 60–109; RESP 12–25; TEMP 36.6–38.8; O2SAT 87–93
--- NOTE | 2022-08-04 13:00 | RT.EKG_ITS ---
APPROVED REPORT Exam: Resting ECG Reason for Exam: chest pain Patient Location: E HR:73 bpm ECG Measurements Heart Rate 73 AXIS MN 193 P -25 QRSd 89 QRS 43 QT 393 T 90 QTc 433 Conclusion Sinus rhythm...normal P axis, V-rate 60- 99 Supraventricular bigeminy...bigeminy string>4 w/ SV complexes Inferior infarct, old...Q >35mS, II III aVF Nonspecific T abnormalities, lateral leads...T <-0.10mV, I aVL V5 V6
[2022-08-04 13:30] LABS: Source Nasal/Nares
--- NOTE | 2022-08-04 13:30 | DI.RAD_ITS ---
Exam(s) XR PORTABLE CHEST AP EXAM: XR PORTABLE CHEST AP CLINICAL HISTORY: chest pain TECHNIQUE: 2D digital imaging was performed. COMPARISON: CR CHEST 2 VIEWS PA,LAT from 07/21/2017 CT CHEST FOR PULMONARY EMBOLUS from 07/21/2017 FINDINGS: Pulmonary arteries: Prominent. LUNGS: Increased interstitial markings throughout. Findings suspicious for CHF. No pleural abnormal ity seen. HEART: Moderately enlarged. Normal in size on prior exam. AORTA: Normal. BONES: Unremarkable for age. Soft tissues: Unremarkable. IMPRESSION: Findings consistent with CHF. DATA REPOSITORY: RADIATION DOSE DELIVERED:
--- NOTE | 2022-08-04 13:32 | W.ED.GENAD ---
Discharge Plan Disposition Patient Disposition: [facility] INPATIENT Condition: Stable Discharge Details Chief Complaint: Chest Pain Clinical Impression: Elevated troponin, Chest pain Primary Care Provider: Erich Long ED Provider: Tavon Guadarrama Home Meds and New Rx's Prescriptions: No Action omeprazole 20 mg capsule,delayed release(DR/EC) 20 mg PO DAILY Qty: 60 6RF magnesium oxide 400 mg capsule 400 mg PO DAILY Qty: 30 6RF hydrochlorothiazide 50 mg tablet 50 mg PO DAILY Qty: 90 3RF triamcinolone acetonide 0.1 % ointment 1 applic topical BID Qty: 80 0RF Rx Instructions: to affected area on legs nystatin 100,000 unit/gram cream 1 applic topical TID Qty: 15 0RF aspirin [Ecotrin Low Strength] 81 MG tablet,delayed release (DR/EC) 1 tab PO DAILY atorvastatin [Lipitor] 40 mg tablet 40 mg PO QPM Qty: 90 4RF cilostazol 50 mg tablet 50 mg PO DAILY Qty: 90 3RF calcium carbonate-vitamin D3 1 EACH tablet 1 ea PO DAILY Centrum Silver 1 EACH tablet 1 tab PO DAILY acetaminophen [Acetaminophen Extra Strength] 500 mg Tablet 1,000 mg PO BID tamsulosin 0.4 mg capsule 1 mg PO HS Label Comments: TAKE 1 CAPSULE (0.4MG) BY MOUTH DAILY Medical Decision Making 82 yo male with remote history of smoking, pvd, htn, who comes in with chief complaint of chest pain that resolved. He had an outpatient cystoscopy and circumcision done today and when awoken from anesthesia had anterior chest pain he describes as sharp and a troponin was drawn and came back elevated at 142. They reportedly spoke with the hospitalist who requested he be sent to the ed. He arrives denying any pain and denies any prior known cardiac history. He appears well, denies having chest pain yesterday or recently. He denies fevers or dyspnea. He appears well on exam speaking clearly, no jvd, clear lung sounds, no lower extremity swelling or calf tenderness. Suspect demand ischemia vs nstemi, will treat with asa, obtain another troponin to see if it's still trending up and discuss with cardiology at [facility] [place] pt still pain free, xray shows signs of chf, lasix 20mg ordered. process maintenance technician coming to do an echocardiogram. Spoke with cardiology at [facility], did not feel he required transfer at this time, recommended serial troponins and stress testing, if negative doesn't require cath. Did not recommend dual antiplatelet or heparin unless repeat troponin significantly elevated, worsening pain or dynamic ekg changes. pt stable, agreeable to admission here. Differential Diagnosis Differential Diagnosis: demand ischemia, nstemi Imaging Data Radiologic Study: Attestation: I personally reviewed and interpreted this imaging study as follows: Imaging: X-Ray Radiologist's impression: chf Lab Data Lab results reviewed: Yes I reviewed the patient's lab results. ECG Data Attestation: I personally reviewed and interpreted this ECG (s) as follows: Prior ECG tracings: available for review Interpretation: sinus rhythm, rate of 73, no acute stemi HPI General Mode of arrival: wheelchair. Date/Time Provider Initiated Documentation: 08/04/22 13:11. Limitations to Documentation: no limitations. Information obtained by: patient. History of Present Illness 82 year old M presents to the emergency department with the chief complaint of elevated troponin, Patient started experiencing this hour(s) (1) and it has been now resolved (chest pain resolved). No relieving factors improve symptom(s), No exacerbating factors reported . Patient notes no other symptoms.. Patient did receive the following treatments prior to arrival, none Related Data Home Medications Medication Instructions Recorded Confirmed aspirin 81 mg tablet,delayed 1 tab PO DAILY 02/15/13 08/04/22 release (Ecotrin Low Strength) calcium carbonate 600 mg-vitamin 1 ea PO DAILY 04/12/13 08/04/22 D3 5 mcg (200 unit) tablet [id number] acid 0.4 1 tab PO DAILY 08/18/14 08/04/22 mg-lycopene 300 mcg-lutein 250 mcg tablet (Centrum Silver) magnesium oxide 400 mg PO DAILY #30 caps 07/28/18 08/04/22 omeprazole 20 mg capsule,delayed 20 mg PO DAILY #60 caps 10/22/21 08/04/22 release hydrochlorothiazide 50 mg tablet 50 mg PO DAILY #90 tabs 12/30/21 08/04/22 triamcinolone acetonide 0.1 % 1 applic topical BID #80 grams 04/21/22 08/04/22 topical ointment atorvastatin 40 mg tablet (Lipitor) 40 mg PO QPM #90 tabs 06/18/22 08/04/22 cilostazol 50 mg tablet 50 mg PO DAILY #90 tabs 06/18/22 08/04/22 nystatin 100,000 unit/gram topical 1 applic topical TID #15 grams 07/18/22 08/04/22 cream acetaminophen 500 mg tablet 1,000 mg PO BID 08/04/22 08/04/22 (Acetaminophen Extra Strength) tamsulosin 0.4 mg capsule 1 mg PO HS 08/04/22 08/04/22 Previous Rx's Medication Instructions Recorded magnesium oxide 400 mg PO DAILY #30 caps 07/28/18 omeprazole 20 mg capsule,delayed 20 mg PO DAILY #60 caps 10/22/21 release hydrochlorothiazide 50 mg tablet 50 mg PO DAILY #90 tabs 12/30/21 triamcinolone acetonide 0.1 % 1 applic topical BID #80 grams 04/21/22 topical ointment atorvastatin 40 mg tablet (Lipitor) 40 mg PO QPM #90 tabs 06/18/22 cilostazol 50 mg tablet 50 mg PO DAILY #90 tabs 06/18/22 nystatin 100,000 unit/gram topical 1 applic topical TID #15 grams 07/18/22 cream Allergies Allergy/AdvReac Type Severity Reaction Status Date / Time No Known Allergies Allergy Verified 08/04/22 07:15 General Stated Complaint: Chest Pain BAIRON: 2 Review of Systems All systems reviewed & are unremarkable except as noted in HPI and below Constitutional Constitutional: Denies chills, Denies fever(s) and Denies weakness Cardiovascular Cardiovascular: Denies dyspnea Respiratory Respiratory: Denies cough and Denies dyspnea Gastrointestinal Gastrointestinal: Denies abdominal pain, Denies nausea and Denies vomiting Integumentary/Breasts Skin/Breast: Denies rash Neurologic Neurologic: Denies weakness [facility] All Active Problems (Updated 08/04/22 @ 14:43 by Tavon Guadarrama MD) Elevated troponin (Acute) Elev transaminase/LDH (Acute) Arterial occlusion, lower extremity (Acute) B/L Cardiac murmur (Acute) ? mild aortic stenosis Chest pain (Acute) Chest pain with abnormal EKG neg MPI 09/08, repeated 08/11 still neg. echo also neg. 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 Prostate nodule (Acute) Phimosis of penis (Acute) Medical History (Updated 08/04/22 @ 14:43 by Tavon Guadarrama MD) Aftercare for healing traumatic fracture of hip (08/25/12) LEFT HIP Arcus senilis Benign prostatic hyperplasia Right prostatic nodule with normal PSA Community acquired pneumonia Complete edentulism, unspecified History of bladder cancer History of fracture of hip History of tobacco use QUIT 2004 Hyperlipidemia Influenza Primary malignant neoplasm of bladder (04/06/13) Surgical History (Updated 08/04/22 @ 07:24 by Celsa Gonzalez) Colonoscopy - MAC 2004 Fracture, Open Treatment (~08/2012) LEFT HIP History of esophagogastroduodenoscopy (EGD) (~09/2021) Hx of cystoscopy Hx of vein stripping pt.report vein in R leg removed and replaced with another Social History Smoking/Tobacco Use Status: Former Tobacco Use Quit Date: 10/26/00 Smoking risk assessment performed?: Yes Alcohol Intake: never Drug use: Never Substance use type: does not use Do you feel safe at home: Yes Additional Social history: unable to assess privatley Exam Const General: no acute distress Orientation: alert HENMT Head: normal to inspection Ears: external ears normal General nose exam: external nose normal Mouth: moist mucous membranes Eyes General: appearance normal, both eyes and all related structures Neck Neck: normal visual inspection Resp Effort & Inspection: normal respiratory effort and able to speak in complete sentences Cardio Rate: regular rate GI Palpation: soft and nontender Skin General skin exam: no rashes or lesions noted Neuro General: patient alert and patient oriented x3 Extrem General: normal to inspection Psych Mental Status: mental status grossly normal Course Vital Signs Vital signs: Vital Signs Temperature 36.6 C 08/04/22 13:16 Pulse 75 08/04/22 13:16 Respiratory Rate 12 08/04/22 13:16 Blood Pressure 140/67 08/04/22 13:16 Pulse Oximetry 93 08/04/22 13:16 Temperature 36.6 C 08/04/22 13:16 Temperature Source Temporal Artery Scan 08/04/22 13:16 Pulse 75 08/04/22 13:16 Respiratory Rate 12 08/04/22 13:16 Respiratory Effort Non-Labored 08/04/22 13:27 Blood Pressure 140/67 08/04/22 13:16 Blood Pressure Position Supine 08/04/22 13:16 Pulse Oximetry 93 08/04/22 13:16 Oxygen Delivery Method Room Air 08/04/22 13:16 Oxygen Flow Rate 0 08/04/22 13:16 Lab/Test Results Lab/Test Results: Laboratory Tests Range/Units 08/04/22 13:23 COVID-19 Source Nasal/Nares
[2022-08-04 13:40] LABS: Abs Immature Grans 0.05 10^3/uL (0.0-0.06); Absolute Basophil Count 0.03 10^3/uL (0.0-0.2); Absolute Eosinophil Count 0.43 10^3/uL (0.0-0.7); Absolute Lymphocyte Count 2.28 10^3/uL (1.2-3.4); Absolute Monocyte Count 0.61 10^3/uL (0.1-0.8); Absolute Neutrophil Count 3.99 10^3/uL (1.2-6.7); Basophils % 0.4; Eosinophils % 5.8; HGB 9.9 g/dL (13.5-17.5); Immature Grans % 0.7; Lymphocytes % 30.9; MCH 30.8 pg (27.0-33.0); MCV 94 fL (80-95); MPV 10.3 fL (8.0-11.0); Monocytes % 8.3; Neutrophils % 53.9; Platelet Count 120 10^3/uL (130-400); RBC 3.21 10^6/uL (4.36-5.78); RDW 14.6 % (11.8-14.1); RDW-SD 49.7 fL; WBC 7.39 10^3/uL (4.4-10.8)
[2022-08-04] MEDS: Aspirin 81 MG CHEW 324 MG CH (13:44)
[2022-08-04 13:53] LABS: INR 1.3 (0.9-1.1); PTT Activated 31.7 sec (21.0-27.5); Prothrombin Time 12.5 sec (9.3-11.0)
[2022-08-04 14:08] LABS: COVID-19 PCR Negative (Negative)
--- NOTE | 2022-08-04 14:39 | DI.US_ITS ---
APPROVED REPORT EXAM: Comprehensive 2D, Doppler, and color-flow Echocardiogram Patient Location: ER Room/Bed: 1 Sponge Press Operator: Flora Lindsey RDCS (AE) Indications: Elevated troponin, pulmonary edema Other Information Study Quality: Fair. Technically limited study due to body habitus, inability to position patient exa m done bedside er supine. Conclusion Normal left ventricular wall thickness and chamber size. Estimated ejection fraction is 50%. There are no segmental wall motion abnormalities Normal right ventricular size and systolic function Both atria are normal in size Aortic valve is sclerotic and trileaflet without stenosis or regurgitation Mildly thickened mitral leaflets, trace mitral regurgitation Normal tricuspid valve with trace regurgitation. Estimated right ventricular systolic pressure is 37 mmHg Wall motion Left Ventricle The left ventricle is normal size. Left ventricular systolic function is borderline There is normal l eft ventricular wall thickness. No segmental wall motion abnormalities There is no ventricular septal defect visualized. LVEF is 50%. Right Ventricle The right ventricle is normal size. The right ventricular systolic function is normal. The RVSP is 37 .0 mmHg. Atria The left atrium size is normal. The right atrium size is normal. The interatrial septum is intact wit h no evidence for an atrial septal defect. Aortic Valve The Aortic valve is sclerotic. Aortic valve is trileaflet. There is no aortic valvular stenosis. No a ortic regurgitation is present. Mitral Valve Mildly thickened mitral leaflets No evidence of mitral valve stenosis. Trace mitral regurgitation. Tricuspid Valve The tricuspid valve is normal in structure. There is no tricuspid valve stenosis. Trace tricuspid reg urgitation. Pulmonic Valve The pulmonary valve is normal in structure. There is no pulmonic valvular stenosis. Trace pulmonic re gurgitation. Great Vessels The aortic root is normal in size. The ascending aorta is normal in size. IVC is normal in size and c ollapses >50% with inspiration. 2D Dimensions IVSD d PLAX 0.94 cm M: 0.6-1.2 LV Vol A2C d MOD 87.5 mL LVPW d PLAX 0.91 cm M: 0.6 - 1.2 LV Vol A4C d MOD 95.7 mL LVID d PLAX 4.24 cm M: 4.2 - 5.8 LA vol/ BSA A2C s A-L 28.8 mL/m2 LVDs 3.20 cm M: 2.5 - 4.0 LA vol/ BSA A4C s A-L 28.7 mL/m2 Ao Root d 3.21 cm M: 3.1 - 3.7 LA Vol/ BSA Biplane s A-L 29.3 mL/m2 Ao Asc Diam d 3.26 cm M: 2.6 - 3.4 LA Area A4C s MOD 20.22 cm2 LV EF Teichholz 48.0 % LA Area A2C s MOD 19.88 cm2 LVEF (Almanza's) 49.52 % M: 52 - 72 LV EF A4C MOD 50.0 % LV Volume 69.99 mL M: 62 - 150 LV EF A2C MOD 50.0 % LV Volume Index 36.64 mL/m2 M: 34 - 74 LV EF Biplane MOD 49.5 % LV Vol Biplane MOD 92.0 mL SV 45.54 mL FS 23.85 % SV Index 23.78 mL/m2 M-Mode TAPSE 2.39 cm (M/F) >1.7 LV Diastology MV E' medial 0.054 (>0.07 m/s) E/A Ratio 0.5 LV E/e MED 10.80 (<14) MV E Vmax 0.58 (0.4-1.3 m/s) MV E' lateral 0.080 (>0.1 m/s) MV A Vmax 1.10 (0.4-1.3 m/s) LV E/e LAT 7.25 (<14) MV E/A Ratio 0.51 MV E/E' medial 10.82 MV E/E' lateral 7.29 Aortic Valve LVOT Area 3.94 cm2 AoV Area Vmax 4.00 cm2 LVOT Vmax 1.14 m/s AoV Area/ BSA (Vmax) 2.09 cm2/m2 LVOT Mean Mickey. 0.72 m/s LJ Mean Mickey. 3.40 cm2 LVOT Peak Grad 5.2 mmHg LJ Mean Mickey. Index 1.78 cm2/m2 LVOT Mean Grad 2.5 mmHg LVOT VTI 0.227 m LVOT Diam s 2.20 cm AoV Vmax 1.12 m/s Velocity Ratio 1.01 AoV Mean Mickey. 0.83 m/s AoV Peak Grad 5.1 mmHg LVOT SV 89.61 mL AoV Mean Grad 3.0 mmHg AoV VTI 0.228 m AoV Area VTI 3.93 cm2 AoV Area/ BSA (VTI) 2.05 cm/m2 Mitral Valve MV DT 307 (160-240 msec) MV PHT 89 msec MV Area PHT 2.47 cm2 MV VTI 0.334 m MV Area VTI 2.68 (4.0-6.0 cm2) Pulmonary Valve PV Vmax 1.01 (0.5-1.5 m/s) RVOT Peak Gr. 1.13 mmHg PV Peak Grad 4.1 mmHg RVOT Mean Gr. 0.65 mmHg PV Mean Grad 2.2 mmHg RVOT VTI 0.110 m PV VTI 0.166 m RVOT Vmax 0.53 m/s Tricuspid Valve TR Peak Grad 33.9 mmHg TR Vmax 2.92 m/s RA Pressure 3.00 mmHg RVSP (TR) 37.0 mmHg
[2022-08-04 14:51] LABS: Albumin 2.2 g/dL (3.4-5.0); Alkaline Phosphatase 78 U/L (46-116); Anion Gap 7.7 mmol/L (3-11); BUN 18 mg/dL (7-18); Bilirubin, Total 0.4 mg/dL (0.2-1.0); CO2 24.3 mmol/L (21.0-32.0); CREATININE 0.7 mg/dL (0.70-1.30); Calcium 6.6 mg/dL (8.5-10.1); Chloride 110 mmol/L (98-107); Estimated GFR 90.86 (mL/min/1.73m2); Glucose 76 mg/dL (74-106); Lipase 93 U/L (73-393); Magnesium 1.3 mg/dL (1.8-2.4); Sodium 142 mmol/L (136-145); Total Protein 5.7 g/dL (6.4-8.2)
[2022-08-04 14:53] LABS: Troponin I 96 ng/L (<or=60)
[2022-08-04 14:57] LABS: NT-proBNP 171 pg/mL (<300)
[2022-08-04] MEDS: Furosemide 20 MG/2 ML VIAL IVP (15:20)
--- NOTE | 2022-08-04 15:54 | W.PM.HP.N ---
Date of service: 08/04/22 Time of Service: 15:54 Assessment and Plan Assessment and plan (1) Elevated troponin: Status: Acute Assessment and plan: angina and elevated troponin d/t demand ischemia. Troponin I is on its way back down. Will cycle 3rd troponin level. Will diurese him and arrange follow up Lexiscan stress MPI for risk stratification once he is out of acute CHF Prior Lexiscan MPI from 07/22/2017 showed no ischemia and no RWMA, LVEF 55%. (2) Angina at rest: Status: Acute Assessment and plan: demand ischemia from operation/anesthesia probably caused intraventricular hemodynamic changes that probably led to incr. LV outflow obstruction and ischemia. However, will check results of today's echo to see if any new RWMA. (3) Acute congestive heart failure: Status: Acute Assessment and plan: patient has known HFPEF (see echo from 07/22/2017 in which he had LVH decr. LV cavity size and mild dynamic outflow tract obstruction w/ peak gradient of 16 mm. Will diurese tonight, check BNP level tonight along w/ troponin levels and check results of his echo. May be acute from perioperative ischemia. Continue diuresis. (4) Anemia: Status: Chronic Assessment and plan: undetermined etiology but he has Sanchez's esophagitis and likely he has chronic GI bleeding issues. will monitor blood count. Unclear why he has not been on carafate (5) Chronic obstructive lung disease: Status: Chronic Assessment and plan: not on home oxygen and not currently on any maintenance bronchodilators. will monitor (6) Hypertension: Status: Acute Assessment and plan: given his LVH he ought to be on a BB Qualifiers: Hypertension type: primary hypertension Qualified Code(s): I10 - Essential (primary) hypertension (7) Peripheral vascular disease: Status: Acute Assessment and plan: cont. Cilostazol (8) Sanchez's esophagus: Status: Acute Assessment and plan: cont. omeprazole; monitor CBC (9) Benign prostatic hyperplasia: Assessment and plan: continue his flomax (10) Hyperlipidemia: Assessment and plan: cont. his home dose of atorvastatin; check lipid profile in the a.m. (11) Hypokalemia: Status: Acute Assessment and plan: probably d/t HCTZ and lack of oral replacement. will give iv and oral replacement especially since he has received lasix. recheck values tonight and again in the a.m. (12) Hypomagnesemia: Status: Acute Assessment and plan: likely combination of omeprazole and HCTZ. Unfortunately, he needs a PPI d/t his Sanchez's esophagitis. he has been on oral supplement but insufficient. Will dc his HCTZ, give both iv and oral replacement and check levels (13) Hypocalcemia: Status: Acute Assessment and plan: likely d/t low magnesium and HCTZ which has hypocalcemic effects. His albumin is low and his corrected total calcium level would be 8.0, still low. Therefore I will give him parenteral replacement along w/ increase his home dose of calcium supplementation. However, I have since learned that the patient's labs were hemolyzed and therefore we will repeat his labs prior to treatment. History of Present Illness History of Present Illness Chief Complaint: CP Narrative: 82 yr old male w/ PMH of PAD, HTN, HLD, BPH who underwent outpatient cystoscopy and circumcision performed today. Patient developed sharp anterior chest pain when he was awakened from surgery. EKG demonstrated old inferolateral infarct but no acute ST-T changes. Troponin I drawn while patient was in PACU was elevated at 142 and repeat level drawn about 90 minutes later while in the ER had come down to 96 ng/L. Patient's chest pain subsided spontaneously. Patient denies any antecedent CP or dyspnea or palpitations. CXR demonstrates increased intersitital edema c/w CHF. Patient was given lasix 20 mg IVP by the Dr. Guadarrama. CMP, CBC and magnesium levels. K+ is low at 3.0, Mg++ is low at 1.3 and calcium is low at 6.6. He is on omeprazole and HCTZ which contribute to his low magnesium, potassium and calcium. Patient will receive parenteral and enteral replacements w/ repeat levels. He is admitted now for observation on telemetry w/ serial troponin I levels and stress MPI in the morning. Dr. Guadarrama did contact [facility] cardiology services who did not recommend tranfer nor did they recommend heparinization unless his second troponin daniel significantly or he had further angina pain or EKG changes. They did recommend stress MPI if his troponins come down in order to perform risk stratifications to determine whether or not he needs cardiac cath. Patient received ASA 324 mg while in the ER. TTE was completed while he was in the ED and report is pending at this time. Review of Systems All systems reviewed & are unremarkable except as noted in HPI and below PFSH All Active Problems (Updated 08/04/22 @ 16:40 by Phil Blanco MD) Hypomagnesemia (Acute) Hypokalemia (Acute) Hypocalcemia (Acute) Acute congestive heart failure (Acute) Anemia (Chronic) Angina at rest (Acute) Elevated troponin (Acute) Elev transaminase/LDH (Acute) Arterial occlusion, lower extremity (Acute) B/L Cardiac murmur (Acute) ? mild aortic stenosis Chest pain (Acute) Chest pain with abnormal EKG neg MPI 09/08, repeated 08/11 still neg. echo also neg. 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 chronic Prostate nodule (Acute) Phimosis of penis (Acute) Medical History Aftercare for healing traumatic fracture of hip (08/25/12) LEFT HIP Arcus senilis Benign prostatic hyperplasia Right prostatic nodule with normal PSA Community acquired pneumonia Complete edentulism, unspecified History of bladder cancer History of fracture of hip History of tobacco use QUIT 2004 Hyperlipidemia Influenza Primary malignant neoplasm of bladder (04/06/13) Surgical History Colonoscopy - [facility] 2004 Fracture, Open Treatment (~08/2012) LEFT HIP History of esophagogastroduodenoscopy (EGD) (~09/2021) Hx of cystoscopy Hx of vein stripping pt.report vein in R leg removed and replaced with another Social History Smoking/Tobacco Use Status: Former Tobacco Use Quit Date: 10/26/00 Smoking risk assessment performed?: Yes Alcohol Intake: never Drug use: Never Substance use type: does not use Do you feel safe at home: Yes Additional Social history: unable to assess [facility] Allergies and Home Medications Allergies Allergy/AdvReac Type Severity Reaction Status Date / Time No Known Allergies Allergy Verified 08/04/22 07:15 Home Medications Medication Instructions Recorded Confirmed Type aspirin 81 mg tablet,delayed 1 tab PO DAILY 02/15/13 08/04/22 History release (Ecotrin Low Strength) calcium carbonate 600 mg-vitamin 1 ea PO DAILY 04/12/13 08/04/22 History D3 5 mcg (200 unit) tablet obpqyahr-knz-fjten acid 0.4 1 tab PO DAILY 08/18/14 08/04/22 History mg-lycopene 300 mcg-lutein 250 mcg tablet (Centrum Silver) magnesium oxide 400 mg PO DAILY #30 caps 07/28/18 08/04/22 Rx omeprazole 20 mg capsule,delayed 20 mg PO DAILY #60 caps 10/22/21 08/04/22 Rx release hydrochlorothiazide 50 mg tablet 50 mg PO DAILY #90 tabs 12/30/21 08/04/22 Rx triamcinolone acetonide 0.1 % 1 applic topical BID #80 grams 04/21/22 08/04/22 Rx topical ointment atorvastatin 40 mg tablet (Lipitor) 40 mg PO QPM #90 tabs 06/18/22 08/04/22 Rx cilostazol 50 mg tablet 50 mg PO DAILY #90 tabs 06/18/22 08/04/22 Rx nystatin 100,000 unit/gram topical 1 applic topical TID #15 grams 07/18/22 08/04/22 Rx cream acetaminophen 500 mg tablet 1,000 mg PO BID 08/04/22 08/04/22 History (Acetaminophen Extra Strength) tamsulosin 0.4 mg capsule 0.4 mg PO HS 08/04/22 08/04/22 History Exam Narrative Exam Narrative: Elderly gentleman who is hard of hearing however he is alert and oriented person place time circumstance. HEENT is normal remarkable with the exception he is edentulous. Neck reveals JVD to about mcfp up his neck while sitting up at 45 degrees, normal carotid pulses Lungs reveal diffuse scattered bilateral rales no wheezes or rhonchi Heart is regular with a soft systolic murmur over the apex no thrill heave or gallop Abdomen slightly distended soft nontender no guarding Lower extremities he has some scratches over the pretibial surfaces skin has 1+ pitting edema bilaterally with palpable pedal pulses he has a surgical scar over his right lower leg over the medial tibia Neuro exam grossly intact no focal motor or sensory deficits no dysarthric speech no facial asymmetry full extraocular motion intact normal range of motion and strength Penis is examined he is status post circumcision with no purulent drainage small amount of crusted blood around the head of the penis no discharge Results Imaging Chest x-ray: report reviewed and image reviewed EKG: image reviewed (when compared to prior EKG from 07/21/2017 the inferolateral q waves were present and there has been no significant changes) Labs Result diagrams: 08/04/22 13:23 08/04/22 14:05 Labs: Laboratory Results - last 24 hr 08/04/22 08/04/22 08/04/22 13:23 13:23 13:23 WBC 7.39 RBC 3.21 L Hgb 9.9 L Hct 30.0 L MCV 94 MCH 30.8 MCHC 33.0 RDW 14.6 H Plt Count 120 L MPV 10.3 Immature Gran % 0.7 Neutrophils % 53.9 Lymphocytes % 30.9 Monocytes % 8.3 Eosinophils % 5.8 Basophils % 0.4 Nucleated RBC % 0.0 Absolute Neutrophils 3.99 Absolute Lymphocytes 2.28 Absolute Monocytes 0.61 Absolute Eosinophils 0.43 Absolute Basophils 0.03 PT INR APTT Sodium Cancelled Potassium Cancelled Chloride Cancelled Carbon Dioxide Cancelled Anion Gap Cancelled BUN Cancelled Creatinine Cancelled Est GFR (CKD-EPI 2020) Cancelled Glucose Cancelled Calcium Cancelled Magnesium Cancelled Total Bilirubin Cancelled AST Cancelled ALT Cancelled Alkaline Phosphatase Cancelled Troponin I Cancelled NT-Pro-B Natriuret Pep Total Protein Cancelled Albumin Cancelled Lipase Cancelled COVID-19 Source Nasal/Nares SARS-CoV-2 (PCR) Negative 08/04/22 08/04/22 08/04/22 13:23 14:05 14:05 WBC RBC Hgb Hct MCV MCH MCHC RDW Plt Count MPV Immature Gran % Neutrophils % Lymphocytes % Monocytes % Eosinophils % Basophils % Nucleated RBC % Absolute Neutrophils Absolute Lymphocytes Absolute Monocytes Absolute Eosinophils Absolute Basophils PT 12.5 H INR 1.3 H APTT 31.7 H Sodium 142 Potassium 3.0 L Chloride 110 H Carbon Dioxide 24.3 Anion Gap 7.7 BUN 18 Creatinine 0.7 Est GFR (CKD-EPI 2020) 90.86 Glucose 76 Calcium 6.6 L Magnesium 1.3 L Total Bilirubin 0.4 AST 35 ALT 23 Alkaline Phosphatase 78 Troponin I 96 H* NT-Pro-B Natriuret Pep 171 Total Protein 5.7 L Albumin 2.2 L Lipase 93 COVID-19 Source SARS-CoV-2 (PCR) Last Vital Signs Temp 36.6 C 08/04/22 13:16 Pulse 66 08/04/22 15:16 Resp 19 08/04/22 15:16 BP 152/68 H 08/04/22 15:16 Pulse Ox 93 08/04/22 13:16
[2022-08-04 17:13] LABS: ALT 23 U/L (16-63); AST 35 U/L (15-37)
[2022-08-04] MEDS: Enoxaparin 40 MG/0.4 ML SYR SC (17:38)
[2022-08-04] MEDS: MAGNESIUM SULFATE 4 GM/100 ML BAG IVPB (17:38)
[2022-08-04] MEDS: Normal Saline Flush 10 ML SYR IVP (17:40)
[2022-08-04 18:12] LABS: Anion Gap 6.3 mmol/L (3-11); BUN 21 mg/dL (7-18); CO2 30.7 mmol/L (21.0-32.0); CREATININE 1.2 mg/dL (0.70-1.30); Calcium 9.5 mg/dL (8.5-10.1); Chloride 96 mmol/L (98-107); Estimated GFR 59.63 (mL/min/1.73m2); Glucose 147 mg/dL (74-106); Potassium 3.3 mmol/L (3.5-5.1); Sodium 133 mmol/L (136-145)
[2022-08-04 18:30] LABS: HCT 46.2 % (40.0-50.0); HGB 15.1 g/dL (13.5-17.5)
[2022-08-04 18:34] LABS: Troponin I 134 ng/L (<or=60)
[2022-08-04] MEDS: Furosemide 40 MG/4 ML VIAL IVP (18:53)
[2022-08-04] MEDS: Acetaminophen 325 MG TAB PO (19:36)
[2022-08-04] MEDS: POTASSIUM CHLORIDE 20 MEQ/100 ML BAG 50 MEQ IVPB ×2 (19:42→21:29)
--- NOTE | 2022-08-04 20:00 | DI.RAD_ITS ---
Exam(s) XR PORTABLE CHEST AP EXAM: XR PORTABLE CHEST AP CLINICAL HISTORY: CP TECHNIQUE: 2D digital imaging was performed of the chest. One image was obtained. An AP view was ob tained. COMPARISON: CR XR PORTABLE CHEST AP from 08/04/2022 FINDINGS: MEDIASTINUM: Normal. HEART: Stable mild cardiomegaly. PULMONARY VASCULATURE: Normal. LUNGS: No focal consolidating infiltrates. There is a stable diffuse interstitial pattern in the vera gs. PLEURAL SPACE: No pleural effusion or pneumothorax. BONE:Within normal limits for the patient's age. OTHER FINDINGS:Normal. IMPRESSION: No change in appearance of the chest compared to the prior examination. DATA REPOSITORY: RADIATION DOSE DELIVERED:
--- NOTE | 2022-08-04 20:39 | W.EVENT ---
Date of service: 08/04/22 Time of Service: 20:39 Event Note: Called for fever 38.7. case reveiwed, s/p cysto and circumcision, complicated by slight rise in troponin in setting of transient CP w/o EKG changes, attributed to demand ischemia. At present time patient states he feels fine. Nursing report drop in sats to 87, up to 94 on 2L . No coughing noted, no aspiration events noted. Staff note continued oozing from circumcision site. On exam, BP 176/84, p 107, t 38.7, RR during visit approx 20. patient appears entire;ly comfortable. Lungs )limited exam, patient not entirely cooperative) appear clear; heart tachy/regular; : oozing blod from site, no purulent D/C CXR appears essentially unchanged, though question (to my read) slight increase in markings RLL compared to earlier today A/P: Post op fever. With dropping sats I would have to favor pulmonary source, though the instrumentation is also noted. Blood cultures obtained and I will begin empiric Zosyn pending results. Time Spent with Patient Time spent in critical care(minutes): 30 Time Spent Included: Chart review, Documenting critically ill care and Time at immediate bedside
[2022-08-04 21:01] LABS: Bilirubin Negative (Negative); Blood Large (Negative); Clarity Clear (Clear); Glucose Negative (Negative); Ketones Negative (Negative); Leukocyte Esterase Negative (Negative); Nitrite Negative (Negative); Urobilinogen 0.2 EU/dL (Up TO 0.2); pH 6.5 (5-8)
[2022-08-04 21:05] LABS: C & S Indicated? No; RBC >50 HPF (0-2)
--- NOTE | 2022-08-04 21:22 | DI.VRAD_ITS ---
PROCEDURE INFORMATION: Exam: XR Chest Exam date and time: 08/04/2022 8:12 PM Age: 82 years old Clinical indication: Other: Chest pain, fever TECHNIQUE: Imaging protocol: Radiologic exam of the chest. Views: 1 view. COMPARISON: CR XR PORTABLE CHEST AP 08/04/2022 1:54 PM FINDINGS: Limited due to rotation Lungs: Chronic interstitial prominence. No consolidation. Pleural spaces: No pleural effusion. No pneumothorax. Heart/Mediastinum: Grossly stable. Bones/joints: Grossly stable IMPRESSION: No acute findings. Dictated and Authenticated by: Rolando Delgado MD. Ordering:MARY Adkins MD
[2022-08-04] MEDS: PIPERACILLIN/TAZO 3.375 GM in Normal Saline 50 ML IVPB (21:30)
[2022-08-04] MEDS: Atorvastatin 40 MG TAB PO (21:31)
[2022-08-04] MEDS: Potassium Chloride 20 MEQ TABCR PO (21:31)
[2022-08-04] MEDS: Tamsulosin 0.4 MG CAPCR PO (21:31)
[2022-08-04] MEDS: Magnesium Oxide 400 MG TAB PO (21:31)
[2022-08-04] MEDS: Calcium 600mg/Vit D 200U TAB 1 TAB PO (21:33)
--- NOTE | 2022-08-04 22:47 | NUR.NOTE ---
Nursing Note: Circumcision site needing frequent absorbent dressing changes. Petroleum gauze maintained around actual incision site. then non adherent abd pads used to as absorbent.
--- NOTE | 2022-08-04 22:57 | NUR.NOTE ---
Nursing Note: Hematuria present. MD ordered; STAT; UA, blood cultures for fever, and Chest Xray. Al completed.
--- NOTE | 2022-08-04 22:59 | NUR.NOTE ---
Nursing Note: Patient did receive 40mg Sub Q Lovenox around 1600. ensured no anticoagulants are to be given again tonight. None ordered.
--- NOTE | 2022-08-04 23:01 | NUR.NOTE ---
Nursing Note: Patient continues to diurese, pt needs assistance with urinal. D/t having absorbent dressings in place around penis to absorb drainage/blood, patient will continue to require assistance with this.
[2022-08-05] VITALS (13 sets, daily range): BP systolic 85–136; BP diastolic 49–70; PULSE 71–106; RESP 17–18; TEMP 36.5–37.7; O2SAT 91–98
--- NOTE | 2022-08-05 02:11 | NUR.NOTE ---
Nursing Note: Patient got onto BSC to attempt to void, was unable to use urinal during this last attempt. No void noted with this attempt. Bleeding has stopped around surgical site. Skin was gently cleaned around penis. Pt has voided hematuria w/ clots this shift.
[2022-08-05] MEDS: PIPERACILLIN/TAZO 3.375 GM in Normal Saline 50 ML IVPB ×4 (04:09→20:20)
[2022-08-05 05:35] LABS: Abs Immature Grans 0.13 10^3/uL (0.0-0.06); Absolute Basophil Count 0.07 10^3/uL (0.0-0.2); Absolute Neutrophil Count 15.76 10^3/uL (1.2-6.7); Basophils % 0.3; Eosinophils % 0.9; HGB 13.2 g/dL (13.5-17.5); Immature Grans % 0.6; Lymphocytes % 17.4; MCH 30.1 pg (27.0-33.0); MCHC 33.8 % (32.0-36.0); MCV 89 fL (80-95); MPV 10.6 fL (8.0-11.0); Monocytes % 8.3; Neutrophils % 72.5; Platelet Count 166 10^3/uL (130-400); RBC 4.38 10^6/uL (4.36-5.78); RDW 14.6 % (11.8-14.1); RDW-SD 47.6 fL; WBC 21.74 10^3/uL (4.4-10.8)
[2022-08-05 05:42] LABS: Absolute Lymphocyte Count 3.78 10^3/uL (1.2-3.4)
[2022-08-05 05:50] LABS: Hemoglobin A1C 6.4 % (<5.7)
[2022-08-05 05:59] LABS: Iron 29 ug/dL (65-175); Total Iron Binding Capacity 320 ug/dL (250-450); Transferrin Sat 9 % (20-55)
[2022-08-05 06:02] LABS: Diff Comment Agrees w/ Instrument; RBC Morphology Normal
[2022-08-05 06:05] LABS: Anion Gap 9.5 mmol/L (3-11); BUN 29 mg/dL (7-18); CO2 28.5 mmol/L (21.0-32.0); CREATININE 1.4 mg/dL (0.70-1.30); Calcium 9.2 mg/dL (8.5-10.1); Calculated LDL 51 mg/dL (<100); Chloride 95 mmol/L (98-107); Cholesterol 101 mg/dL (<200); Estimated GFR 49.56 (mL/min/1.73m2); Ferritin 76 ng/mL (26-388); Glucose 125 mg/dL (74-106); HDL Cholesterol 34 mg/dL (40-60); LDH 212 U/L (85-227); Magnesium 2.8 mg/dL (1.8-2.4); Potassium 3.5 mmol/L (3.5-5.1); Sodium 133 mmol/L (136-145); Triglyceride 81 mg/dL (<150)
[2022-08-05 06:22] LABS: Troponin I 127 ng/L (<or=60)
[2022-08-05] MEDS: Omeprazole 20 MG CAPCR PO (08:44)
[2022-08-05] MEDS: Aspirin E.C. 81 MG TABEC PO (08:44)
[2022-08-05] MEDS: Multivitamin w/Minerals TAB 1 TAB PO (08:44)
[2022-08-05] MEDS: Calcium 600mg/Vit D 200U TAB 1 TAB PO ×2 (08:45→20:20)
[2022-08-05] MEDS: Cilostazol 100 MG TAB 50 MG PO (08:45)
[2022-08-05] MEDS: Potassium Chloride 20 MEQ TABCR PO ×3 (08:46→20:22)
[2022-08-05] MEDS: Normal Saline Flush 10 ML SYR IVP ×4 (08:49→15:51)
[2022-08-05] MEDS: Furosemide 40 MG/4 ML VIAL IVP (08:49)
[2022-08-05 09:30] LABS: Procalcitonin 1.4 ng/mL
--- NOTE | 2022-08-05 09:47 | INITIAL_ITS ---
- If Service Date Differs Date of service: 08/05/22 Time of Service: 09:47 Care Management Initial Assess REASON FOR HOSPITALIZATION:: chest pain PAST MEDICAL HISTORY/PAST SURGICAL HISTORY:: All Active Problems. Hypomagnesemia (Acute). Hypokalemia (Acute). Hypocalcemia (Acute). Acute congestive heart failure (Acute). Anemia (Chronic). Angina at rest (Acute). Elevated troponin (Acute). Elev transaminase/LDH (Acute). Arterial occlusion, lower extremity (Acute). B/L. Cardiac murmur (Acute). ? mild aortic stenosis. Chest pain (Acute). Chest pain with abnormal EKG. neg MPI 09/08, repeated 08/11 still neg. echo also neg. Chronic obstructive lung disease (Chronic). Diastasis recti (Acute). Hypertension (Acute). Stress test, 1999, with hypertensive response. Peripheral vascular disease (Acute). Being actively followed by [facility] [place] [place]. Umbilical hernia (Acute). Inguinal adenopathy (Acute). Abnormal CT scan, gastrointestinal tract (Acute). Esophagitis (Acute ~09/2021). Esophageal reflux (Chronic ~09/2021). Sanchez's esophagus (Acute ~09/2021). Venous insufficiency of right lower extremity (Acute). Cellulitis (Acute). Stasis dermatitis (Acute). 03/2022 bilateral and chronic. Prostate nodule (Acute). Phimosis of penis (Acute). Medical History. Aftercare for healing traumatic fracture of hip (08/25/12). LEFT HIP. Arcus senilis. Benign prostatic hyperplasia. Right prostatic nodule with normal PSA. Community acquired pneumonia. Complete edentulism, unspecified. History of bladder cancer. History of fracture of hip. History of tobacco use. QUIT 2004. Hyperlipidemia. Influenza. Primary malignant neoplasm of bladder (04/06/13). Surgical History. Colonoscopy - [facility]. 2003. Fracture, Open Treatment (~08/2012). LEFT HIP. History of esophagogastroduodenoscopy (EGD) (~09/2021). Hx of cystoscopy. Hx of vein stripping. pt.report vein in R leg removed. and replaced with another PREVIOUS FUNCTIONAL STATUS/SOCIAL/FAMILY SUPPORTS:: Alexander lives in [place] with his sister, Xin, and his nephew. His family is very supportive. He is independent with his ADL's, but he does not drive. CURRENT FUNCTIONAL STATUS:: Alexander was lying in bed when CM met with him. He reported that he is feeling pretty good today. He stated that he had surgery, went home, and returned to the ED when he starting feeling sick. He reported that he is receiving good care, and he is unsure how long he will remain in the hospital. Per MD, he is orthostatic, therefore a PE will be ruled out. CM will continue to follow. ADVANCE DIRECTIVES:: Not on file. Has patient been provided with info about the portal/API?: Yes Did the patient sign up for the portal?: No CODE STATUS:: Full Code INSURANCE COVERAGE / FINANCIAL ISSUES:: [facility] CURRENT HOME/COMMUNITY SERVICES/EQUIPMENT:: No current services. PRIMARY CARE PHYSICIAN:: Erich Long POTENTIAL DISCHARGE NEEDS:: Evaluations for further needs, follow up appointments. PATIENT/FAMILY EDUCATION NEEDS:: Review discharge instructions and limitations, discussion of self care needs including ask me three. ANTICIPATED BARRIERS TO DISCHARGE:: None identified. TRANSPORTATION:: Via private vehicle by family. PLAN:: Anticipate Alexander will return home when medically cleared. His family will drive him home via private vehicle. He will follow up with his PCP and discharge plan of care. CM will continue to follow.
[2022-08-05 09:52] LABS: D-Dimer 1221 ng/mlFEU (<500)
--- NOTE | 2022-08-05 10:39 | PGE_ITS ---
Date of Service Date of service: 08/05/22 Time of Service: 10:39 Assessment and Plan Assessment and plan (1) Sepsis: Status: Acute Assessment and plan: Due to presumed pulmonary source, although bloodborne infection after instrumentation is not impossible. Procalcitonin elevated. Check lactate given low BPs. Add vancomycin. Await blood cx results. (2) Hypoxia: Status: Acute Assessment and plan: Post-op. ?PNA not seen on CXR, ?CHF, ?PE. Obtain CTA chest. O2 requirements are back to RA today. (3) Hypotension: Status: Acute Assessment and plan: In setting of orthostatic hypotension, sepsis, diuresis, flomax, possible PE, urinary retention of 380 cc with difficulty passing urine and clots (?vagal component). Will stop diuresis as clinically euvolemic. Will give a 250 cc bolus of LR. R/o PE. D/c diuretics. C/s urology. Obtain LA. (4) Hematuria: Status: Acute Assessment and plan: As above (5) Elevated troponin: Status: Acute Assessment and plan: In setting of acute CHF and impending sepsis. I suspect this is demand ischemia as well. Troponins have essentially flattened out. Echo w/o wall motion abnormalities and MPI was negative in 2017. R/o PE. Would benefit from having an MPI stress test once more stable. (6) Angina at rest: Status: Acute Assessment and plan: As above (7) Acute congestive heart failure: Status: Acute Assessment and plan: HFPEF, mild dynamic outflow tract obstruction, mild pulmonary hypertension. Euvolemic. Will hold off of further diuretics for today. (8) Anemia: Status: Chronic Assessment and plan: Does have evidence of iron deficiency. Will give a dose of venofer. I suspect GI blood loss chronically; hematuria is also contributing. (9) Chronic obstructive lung disease: Status: Chronic Assessment and plan: DOes not appear to be in an acute exacerbation at this time. No change in therapy. (10) Hypertension: Status: Acute Assessment and plan: Given low BP this morning, will not initiate BB today. Qualifiers: Hypertension type: primary hypertension Qualified Code(s): I10 - Essential (primary) hypertension (11) Peripheral vascular disease: Status: Chronic Assessment and plan: continue Cilostazol (12) Sanchez's esophagus: Status: Chronic Assessment and plan: continue omeprazole (13) Benign prostatic hyperplasia: Assessment and plan: continue flomax. Urology consulted given urinary retention. (14) Hyperlipidemia: Assessment and plan: Continue atorvastatin (15) Hypokalemia: Status: Acute Assessment and plan: Continue potassium repletion. (16) Hypomagnesemia: Status: Acute Assessment and plan: High magnesium today unlikely to reflect a true magnesium level given that it takes about 48 hrs to redistribute. Recheck again in am. Continue PO magnesium. (17) Hypocalcemia: Status: Ruled-out Assessment and plan: Normal on today's bloodwork. (18) DVT prophylaxis: Status: Acute Assessment and plan: SC enoxaparin (19) Discharge planning issues: Status: Acute Assessment and plan: Full code Consider PT and palliative care consults. Subjective Subjective Interval history since last seen: C/o dizziness. Denies CP, SOB, nausea. Nursing reports patient having difficulty urinating - hematuria with clots. BP on routine BP check was 90/52. Overnight became febrile to 38.7 and dropped O2 sats to the 80s. He is on RA this morning saturating 93%. He is orthostatic with BP of 95/56 sitting and 85/49 standing. Exam Narrative Exam Narrative: General: Pleasant elderly male who is A&Ox3, sitting up in a chair, does look slightly uncomfortable; remnants of dark blood tingued urine in the urinal next to the patient HEENT: EOMI, MMM Heart: RRR Lungs: CTAB Abdomen: soft, nontender, nondistended Extremities: +1 RLE edema, no edema LLE; healing excoriations on BLEs Objective Last Vital Signs Temp 36.5 C 08/05/22 10:24 Pulse 76 08/05/22 10:24 Resp 18 08/05/22 10:24 BP 90/52 L 08/05/22 10:24 Pulse Ox 93 08/05/22 10:24 Laboratory Results - last 24 hr 08/04/22 08/04/22 08/04/22 13:23 13:23 13:23 WBC 7.39 RBC 3.21 L Hgb 9.9 L Hct 30.0 L MCV 94 MCH 30.8 MCHC 33.0 RDW 14.6 H Plt Count 120 L MPV 10.3 Immature Gran % 0.7 Neutrophils % 53.9 Lymphocytes % 30.9 Monocytes % 8.3 Eosinophils % 5.8 Basophils % 0.4 Nucleated RBC % 0.0 Absolute Neutrophils 3.99 Absolute Lymphocytes 2.28 Absolute Monocytes 0.61 Absolute Eosinophils 0.43 Absolute Basophils 0.03 RBC Morphology PT INR APTT D-Dimer Sodium Cancelled Potassium Cancelled Chloride Cancelled Carbon Dioxide Cancelled Anion Gap Cancelled BUN Cancelled Creatinine Cancelled Est GFR (CKD-EPI 2020) Cancelled Glucose Cancelled Hemoglobin A1c Calcium Cancelled Magnesium Cancelled Iron TIBC Transferrin % Sat Ferritin Total Bilirubin Cancelled AST Cancelled ALT Cancelled Alkaline Phosphatase Cancelled Lactate Dehydrogenase Troponin I Cancelled NT-Pro-B Natriuret Pep Total Protein Cancelled Albumin Cancelled Triglycerides Total Cholesterol LDL Cholesterol, Calc HDL Cholesterol Lipase Cancelled Procalcitonin Urine Color Urine Clarity Urine pH Ur Specific [facility] Urine Protein Urine Ketones Urine Blood Urine Nitrite Urine Bilirubin Urine Urobilinogen Ur Leukocyte Esterase Urine RBC Urine WBC Ur Epithelial Cells Urine Crystals Urine Bacteria Urine Mucus Ur Culture Indicated? Urine Glucose COVID-19 Source Nasal/Nares SARS-CoV-2 (PCR) Negative Add-On Test Request 08/04/22 08/04/22 08/04/22 13:23 14:05 14:05 WBC RBC Hgb Hct MCV MCH MCHC RDW Plt Count MPV Immature Gran % Neutrophils % Lymphocytes % Monocytes % Eosinophils % Basophils % Nucleated RBC % Absolute Neutrophils Absolute Lymphocytes Absolute Monocytes Absolute Eosinophils Absolute Basophils RBC Morphology PT 12.5 H INR 1.3 H APTT 31.7 H D-Dimer Sodium 142 Potassium 3.0 L Chloride 110 H Carbon Dioxide 24.3 Anion Gap 7.7 BUN 18 Creatinine 0.7 Est GFR (CKD-EPI 2020) 90.86 Glucose 76 Hemoglobin A1c Calcium 6.6 L Magnesium 1.3 L Iron TIBC Transferrin % Sat Ferritin Total Bilirubin 0.4 AST 35 ALT 23 Alkaline Phosphatase 78 Lactate Dehydrogenase Troponin I 96 H* NT-Pro-B Natriuret Pep 171 Total Protein 5.7 L Albumin 2.2 L Triglycerides Total Cholesterol LDL Cholesterol, Calc HDL Cholesterol Lipase 93 Procalcitonin Urine Color Urine Clarity Urine pH Ur Specific [facility] Urine Protein Urine Ketones Urine Blood Urine Nitrite Urine Bilirubin Urine Urobilinogen Ur Leukocyte Esterase Urine RBC Urine WBC Ur Epithelial Cells Urine Crystals Urine Bacteria Urine Mucus Ur Culture Indicated? Urine Glucose COVID-19 Source SARS-CoV-2 (PCR) Add-On Test Request 08/04/22 08/04/22 08/04/22 17:52 17:52 17:52 WBC RBC Hgb 15.1 D Hct 46.2 MCV MCH MCHC RDW Plt Count MPV Immature Gran % Neutrophils % Lymphocytes % Monocytes % Eosinophils % Basophils % Nucleated RBC % Absolute Neutrophils Absolute Lymphocytes Absolute Monocytes Absolute Eosinophils Absolute Basophils RBC Morphology PT INR APTT D-Dimer Sodium Potassium Cancelled Chloride Carbon Dioxide Anion Gap BUN Creatinine Est GFR (CKD-EPI 2020) Glucose Hemoglobin A1c Calcium Magnesium Iron TIBC Transferrin % Sat Ferritin Total Bilirubin AST ALT Alkaline Phosphatase Lactate Dehydrogenase Troponin I 134 H* NT-Pro-B Natriuret Pep Total Protein Albumin Triglycerides Total Cholesterol LDL Cholesterol, Calc HDL Cholesterol Lipase Procalcitonin Urine Color Urine Clarity Urine pH Ur Specific [facility] Urine Protein Urine Ketones Urine Blood Urine Nitrite Urine Bilirubin Urine Urobilinogen Ur Leukocyte Esterase Urine RBC Urine WBC Ur Epithelial Cells Urine Crystals Urine Bacteria Urine Mucus Ur Culture Indicated? Urine Glucose COVID-19 Source SARS-CoV-2 (PCR) Add-On Test Request 08/04/22 08/04/22 08/04/22 17:52 18:29 20:15 WBC RBC Hgb Hct MCV MCH MCHC RDW Plt Count MPV Immature Gran % Neutrophils % Lymphocytes % Monocytes % Eosinophils % Basophils % Nucleated RBC % Absolute Neutrophils Absolute Lymphocytes Absolute Monocytes Absolute Eosinophils Absolute Basophils RBC Morphology PT INR APTT D-Dimer Sodium 133 L Potassium 3.3 L Chloride 96 L Carbon Dioxide 30.7 Anion Gap 6.3 BUN 21 H Creatinine 1.2 Est GFR (CKD-EPI 2020) 59.63 Glucose 147 H Hemoglobin A1c Calcium 9.5 Magnesium Iron TIBC Transferrin % Sat Ferritin Total Bilirubin AST ALT Alkaline Phosphatase Lactate Dehydrogenase Troponin I Cancelled NT-Pro-B Natriuret Pep Total Protein Albumin Triglycerides Total Cholesterol LDL Cholesterol, Calc HDL Cholesterol Lipase Procalcitonin Urine Color Yellow Urine Clarity Clear Urine pH 6.[address] 1.020 Urine Protein 100 H Urine Ketones Negative Urine Blood Large H Urine Nitrite Negative Urine Bilirubin Negative Urine Urobilinogen 0.2 Ur Leukocyte Esterase Negative Urine RBC >50 H Urine WBC Not Applicable Ur Epithelial Cells Not Applicable Urine Crystals Not Applicable Urine Bacteria Not Applicable Urine Mucus Not Applicable Ur Culture Indicated? No Urine Glucose Negative COVID-19 Source SARS-CoV-2 (PCR) Add-On Test Request 08/04/22 08/05/22 08/05/22 Unknown 05:06 05:06 WBC RBC Hgb Hct MCV MCH MCHC RDW Plt Count MPV Immature Gran % Neutrophils % Lymphocytes % Monocytes % Eosinophils % Basophils % Nucleated RBC % Absolute Neutrophils Absolute Lymphocytes Absolute Monocytes Absolute Eosinophils Absolute Basophils RBC Morphology PT INR APTT D-Dimer Sodium 133 L Potassium 3.5 Chloride 95 L Carbon Dioxide 28.5 Anion Gap 9.5 BUN 29 H Creatinine 1.4 H Est GFR (CKD-EPI 2020) 49.56 Glucose 125 H Hemoglobin A1c 6.4 H Calcium 9.2 Magnesium 2.8 H Iron TIBC Transferrin % Sat Ferritin 76 Total Bilirubin AST ALT Alkaline Phosphatase Lactate Dehydrogenase 212 Troponin I 127 H* NT-Pro-B Natriuret Pep Total Protein Albumin Triglycerides 81 Total Cholesterol 101 LDL Cholesterol, Calc 51 HDL Cholesterol 34 L Lipase Procalcitonin Urine Color Urine Clarity Urine pH Ur Specific [facility] Urine Protein Urine Ketones Urine Blood Urine Nitrite Urine Bilirubin Urine Urobilinogen Ur Leukocyte Esterase Urine RBC Urine WBC Ur Epithelial Cells Urine Crystals Urine Bacteria Urine Mucus Ur Culture Indicated? Urine Glucose COVID-19 Source SARS-CoV-2 (PCR) Add-On Test Request Cancelled 08/05/22 08/05/22 08/05/22 05:06 05:06 08:38 WBC 21.74 H RBC 4.38 Hgb 13.2 L Hct 39.0 L MCV 89 D MCH 30.1 MCHC 33.8 RDW 14.6 H Plt Count 166 MPV 10.6 Immature Gran % 0.6 Neutrophils % 72.5 Lymphocytes % 17.4 Monocytes % 8.3 Eosinophils % 0.9 Basophils % 0.3 Nucleated RBC % 0.0 Absolute Neutrophils 15.76 H Absolute Lymphocytes 3.78 H Absolute Monocytes 1.80 H Absolute Eosinophils 0.20 Absolute Basophils 0.07 RBC Morphology Normal PT INR APTT D-Dimer Sodium Potassium Chloride Carbon Dioxide Anion Gap BUN Creatinine Est GFR (CKD-EPI 2020) Glucose Hemoglobin A1c Calcium Magnesium Iron 29 L TIBC 320 Transferrin % Sat 9 L Ferritin Total Bilirubin AST ALT Alkaline Phosphatase Lactate Dehydrogenase Troponin I NT-Pro-B Natriuret Pep Total Protein Albumin Triglycerides Total Cholesterol LDL Cholesterol, Calc HDL Cholesterol Lipase Procalcitonin 1.4 Urine Color Urine Clarity Urine pH Ur Specific [facility] Urine Protein Urine Ketones Urine Blood Urine Nitrite Urine Bilirubin Urine Urobilinogen Ur Leukocyte Esterase Urine RBC Urine WBC Ur Epithelial Cells Urine Crystals Urine Bacteria Urine Mucus Ur Culture Indicated? Urine Glucose COVID-19 Source SARS-CoV-2 (PCR) Add-On Test Request 08/05/22 08:38 WBC RBC Hgb Hct MCV MCH MCHC RDW Plt Count MPV Immature Gran % Neutrophils % Lymphocytes % Monocytes % Eosinophils % Basophils % Nucleated RBC % Absolute Neutrophils Absolute Lymphocytes Absolute Monocytes Absolute Eosinophils Absolute Basophils RBC Morphology PT INR APTT D-Dimer 1221 H Sodium Potassium Chloride Carbon Dioxide Anion Gap BUN Creatinine Est GFR (CKD-EPI 2020) Glucose Hemoglobin A1c Calcium Magnesium Iron TIBC Transferrin % Sat Ferritin Total Bilirubin AST ALT Alkaline Phosphatase Lactate Dehydrogenase Troponin I NT-Pro-B Natriuret Pep Total Protein Albumin Triglycerides Total Cholesterol LDL Cholesterol, Calc HDL Cholesterol Lipase Procalcitonin Urine Color Urine Clarity Urine pH Ur Specific [facility] Urine Protein Urine Ketones Urine Blood Urine Nitrite Urine Bilirubin Urine Urobilinogen Ur Leukocyte Esterase Urine RBC Urine WBC Ur Epithelial Cells Urine Crystals Urine Bacteria Urine Mucus Ur Culture Indicated? Urine Glucose COVID-19 Source SARS-CoV-2 (PCR) Add-On Test Request Objective Narrative Objective Narrative: CXR 08/04/22: No acute findings. Echo: Normal left ventricular wall thickness and chamber size.? Estimated ejection fraction is 50%.? There are no segmental wall motion abnormalities Normal right ventricular size and systolic function Both atria are normal in size Aortic valve is sclerotic and trileaflet without stenosis or regurgitation Mildly thickened mitral leaflets, trace mitral regurgitation Normal tricuspid valve with trace regurgitation.? Estimated right ventricular systolic pressure is 37 mmHg
[2022-08-05 11:06] LABS: Lactate 1.6 mmol/L (0.6-1.4)
[2022-08-05] MEDS: Lactated Ringers 250 ML IV (11:14)
[2022-08-05] MEDS: VANCOMYCIN/WATER (PEG) 1 GM/200 ML BAG IVPB (11:24)
[2022-08-05] MEDS: IRON SUCROSE COMPLEX 300 MG in Normal Saline 250 ML 167 MG IVPB (12:00)
--- NOTE | 2022-08-05 12:13 | W.UROLOGYCON ---
Date of service: 08/05/22 Time of Service: 12:14 Assessment and Plan Assessment and plan (1) Hematuria: Status: Acute Assessment and plan: We did not identify any sign of bladder cancer on his cystoscopy yesterday, so I believe his gross hematuria is related to a combination of trauma from the cystoscopy and anticoagulation. Since the urothelial epithelium regenerates every few days, I would expect the bleeding to be self-limited. The only time we would need to place a catheter would be if he develops urinary retention. In terms of the penile/perineal bleeding, this again is likely a combination of the surgery plus the required anticoagulants. These types of hematoma are rather common after a circumcision (even if the patient is not anticoagulated). The hematomas tend to be self-limited and require surgical evacuation and less than 5% of the instances. I do not think any intervention is necessary right now but we will continue to monitor him. Neither the gross hematuria nor the penile hematoma are concerning enough that I would request stopping the anticoagulants as long as they are indicated for his cardiac status. History of Present Illness History of Present Illness Chief Complaint: Hematuria Narrative: This is an 82-year-old gentleman who was previously seen in our office for phimosis. He also had a past history of bladder cancer. He underwent a circumcision yesterday. We did a cystoscopy and found no evidence of recurrent bladder cancer. These procedures were planned as an outpatient, but he developed chest pain following the procedure and his serum troponin levels were elevated. He was then evaluated through the emergency department and admitted to the hospital. He has a history of peripheral vascular disease and is routinely on cilostazol. We had him discontinue the cilostazol 48 hours prior to the procedure. Since his development of chest pain, he has been treated with aspirin, lovastatin and his cilostazol has been resumed. He is now having gross hematuria as well as penile and perineal bruising and swelling. He is not having any dysuria. He has not gone into retention. He is not complaining of any chest pain or shortness of breath at this time. Review of Systems Cardiovascular Cardiovascular: Denies chest pain at rest and Denies dyspnea Respiratory Respiratory: Denies cough and Denies dyspnea Gastrointestinal Gastrointestinal: Denies nausea and Denies vomiting PFSH All Active Problems (Updated 08/05/22 @ 11:01 by Thuy Roche MD) Discharge planning issues (Acute) DVT prophylaxis (Acute) Hematuria (Acute) Hypotension (Acute) Hypoxia (Acute) Sepsis (Acute) Hypomagnesemia (Acute) Hypokalemia (Acute) Acute congestive heart failure (Acute) Anemia (Chronic) Angina at rest (Acute) Elevated troponin (Acute) Elev transaminase/LDH (Acute) Arterial occlusion, lower extremity (Acute) B/L Cardiac murmur (Acute) ? mild aortic stenosis Chest pain (Acute) Chest pain with abnormal EKG neg MPI 09/08, repeated 08/11 still neg. echo also neg. Chronic obstructive lung disease (Chronic) Diastasis recti (Acute) Hypertension (Acute) Stress test, 1999, with hypertensive response Peripheral vascular disease (Chronic) Being actively followed by [facility] [place] Umbilical hernia (Acute) Inguinal adenopathy (Acute) Abnormal CT scan, gastrointestinal tract (Acute) Esophagitis (Acute ~09/2021) Esophageal reflux (Chronic ~09/2021) Sanchez's esophagus (Chronic ~09/2021) Venous insufficiency of right lower extremity (Acute) Cellulitis (Acute) Stasis dermatitis (Acute) 03/2022 bilateral and chronic Prostate nodule (Acute) Phimosis of penis (Acute) Medical History Aftercare for healing traumatic fracture of hip (08/25/12) LEFT HIP Arcus senilis Benign prostatic hyperplasia Right prostatic nodule with normal PSA Community acquired pneumonia Complete edentulism, unspecified History of bladder cancer History of fracture of hip History of tobacco use QUIT 2004 Hyperlipidemia Influenza Primary malignant neoplasm of bladder (04/06/13) Surgical History Colonoscopy - [facility] [place] 2004 Fracture, Open Treatment (~08/2012) LEFT HIP History of esophagogastroduodenoscopy (EGD) (~09/2021) Hx of cystoscopy Hx of vein stripping pt.report vein in R leg removed and replaced with another Social History Smoking/Tobacco Use Status: Former Tobacco Use Quit Date: 10/26/00 Smoking risk assessment performed?: Yes Alcohol Intake: never Drug use: Never Substance use type: does not use Do you feel safe at home: Yes Additional Social history: unable to assess [facility] Exam Const Other: He looks quite well. He is sitting up in bed eating lunch His abdomen is soft. I do not feel a distended bladder. The circumcision suture line is intact. The entire shaft of the penis is ecchymotic and the ecchymosis extends down into the scrotum along with the suprapubic skin. I removed the surgical dressing. I do not see any active bleeding. He is awake and alert Results Last Vital Signs Temp 36.5 C 08/05/22 10:24 Pulse 78 08/05/22 10:50 Resp 18 08/05/22 10:24 BP 95/56 L 08/05/22 10:50 Pulse Ox 93 08/05/22 10:24 Labs Result diagrams: 08/05/22 05:06 08/05/22 05:06 Labs: Laboratory Results - last 24 hr 08/04/22 08/04/22 08/04/22 13:23 13:23 13:23 WBC 7.39 RBC 3.21 L Hgb 9.9 L Hct 30.0 L MCV 94 MCH 30.8 MCHC 33.0 RDW 14.6 H Plt Count 120 L MPV 10.3 Immature Gran % 0.7 Neutrophils % 53.9 Lymphocytes % 30.9 Monocytes % 8.3 Eosinophils % 5.8 Basophils % 0.4 Nucleated RBC % 0.0 Absolute Neutrophils 3.99 Absolute Lymphocytes 2.28 Absolute Monocytes 0.61 Absolute Eosinophils 0.43 Absolute Basophils 0.03 RBC Morphology PT INR APTT D-Dimer VBG Lactate Sodium Cancelled Potassium Cancelled Chloride Cancelled Carbon Dioxide Cancelled Anion Gap Cancelled BUN Cancelled Creatinine Cancelled Est GFR (CKD-EPI 2020) Cancelled Glucose Cancelled Hemoglobin A1c Calcium Cancelled Magnesium Cancelled Iron TIBC Transferrin % Sat Ferritin Total Bilirubin Cancelled AST Cancelled ALT Cancelled Alkaline Phosphatase Cancelled Lactate Dehydrogenase Troponin I Cancelled NT-Pro-B Natriuret Pep Total Protein Cancelled Albumin Cancelled Triglycerides Total Cholesterol LDL Cholesterol, Calc HDL Cholesterol Lipase Cancelled Procalcitonin Urine Color Urine Clarity Urine pH Ur Specific [place] Urine Protein Urine Ketones Urine Blood Urine Nitrite Urine Bilirubin Urine Urobilinogen Ur Leukocyte Esterase Urine RBC Urine WBC Ur Epithelial Cells Urine Crystals Urine Bacteria Urine Mucus Ur Culture Indicated? Urine Glucose COVID-19 Source Nasal/Nares SARS-CoV-2 (PCR) Negative Add-On Test Request 1008/04/22 08/04/22 13:23 14:05 14:05 WBC RBC Hgb Hct MCV MCH MCHC RDW Plt Count MPV Immature Gran % Neutrophils % Lymphocytes % Monocytes % Eosinophils % Basophils % Nucleated RBC % Absolute Neutrophils Absolute Lymphocytes Absolute Monocytes Absolute Eosinophils Absolute Basophils RBC Morphology PT 12.5 H INR 1.3 H APTT 31.7 H D-Dimer VBG Lactate Sodium 142 Potassium 3.0 L Chloride 110 H Carbon Dioxide 24.3 Anion Gap 7.7 BUN 18 Creatinine 0.7 Est GFR (CKD-EPI 2020) 90.86 Glucose 76 Hemoglobin A1c Calcium 6.6 L Magnesium 1.3 L Iron TIBC Transferrin % Sat Ferritin Total Bilirubin 0.4 AST 35 ALT 23 Alkaline Phosphatase 78 Lactate Dehydrogenase Troponin I 96 H* NT-Pro-B Natriuret Pep 171 Total Protein 5.7 L Albumin 2.2 L Triglycerides Total Cholesterol LDL Cholesterol, Calc HDL Cholesterol Lipase 93 Procalcitonin Urine Color Urine Clarity Urine pH Ur Specific [place] Urine Protein Urine Ketones Urine Blood Urine Nitrite Urine Bilirubin Urine Urobilinogen Ur Leukocyte Esterase Urine RBC Urine WBC Ur Epithelial Cells Urine Crystals Urine Bacteria Urine Mucus Ur Culture Indicated? Urine Glucose COVID-19 Source SARS-CoV-2 (PCR) Add-On Test Request 08/04/22 08/04/22 08/04/22 17:52 17:52 17:52 WBC RBC Hgb 15.1 D Hct 46.2 MCV MCH MCHC RDW Plt Count MPV Immature Gran % Neutrophils % Lymphocytes % Monocytes % Eosinophils % Basophils % Nucleated RBC % Absolute Neutrophils Absolute Lymphocytes Absolute Monocytes Absolute Eosinophils Absolute Basophils RBC Morphology PT INR APTT D-Dimer VBG Lactate Sodium Potassium Cancelled Chloride Carbon Dioxide Anion Gap BUN Creatinine Est GFR (CKD-EPI 2020) Glucose Hemoglobin A1c Calcium Magnesium Iron TIBC Transferrin % Sat Ferritin Total Bilirubin AST ALT Alkaline Phosphatase Lactate Dehydrogenase Troponin I 134 H* NT-Pro-B Natriuret Pep Total Protein Albumin Triglycerides Total Cholesterol LDL Cholesterol, Calc HDL Cholesterol Lipase Procalcitonin Urine Color Urine Clarity Urine pH Ur Specific [place] Urine Protein Urine Ketones Urine Blood Urine Nitrite Urine Bilirubin Urine Urobilinogen Ur Leukocyte Esterase Urine RBC Urine WBC Ur Epithelial Cells Urine Crystals Urine Bacteria Urine Mucus Ur Culture Indicated? Urine Glucose COVID-19 Source SARS-CoV-2 (PCR) Add-On Test Request 08/04/22 08/04/22 08/04/22 17:52 18:29 20:15 WBC RBC Hgb Hct MCV MCH MCHC RDW Plt Count MPV Immature Gran % Neutrophils % Lymphocytes % Monocytes % Eosinophils % Basophils % Nucleated RBC % Absolute Neutrophils Absolute Lymphocytes Absolute Monocytes Absolute Eosinophils Absolute Basophils RBC Morphology PT INR APTT D-Dimer VBG Lactate Sodium 133 L Potassium 3.3 L Chloride 96 L Carbon Dioxide 30.7 Anion Gap 6.3 BUN 21 H Creatinine 1.2 Est GFR (CKD-EPI 2020) 59.63 Glucose 147 H Hemoglobin A1c Calcium 9.5 Magnesium Iron TIBC Transferrin % Sat Ferritin Total Bilirubin AST ALT Alkaline Phosphatase Lactate Dehydrogenase Troponin I Cancelled NT-Pro-B Natriuret Pep Total Protein Albumin Triglycerides Total Cholesterol LDL Cholesterol, Calc HDL Cholesterol Lipase Procalcitonin Urine Color Yellow Urine Clarity Clear Urine pH 6.5 Ur Specific [place] 1.020 Urine Protein 100 H Urine Ketones Negative Urine Blood Large H Urine Nitrite Negative Urine Bilirubin Negative Urine Urobilinogen 0.2 Ur Leukocyte Esterase Negative Urine RBC >50 H Urine WBC Not Applicable Ur Epithelial Cells Not Applicable Urine Crystals Not Applicable Urine Bacteria Not Applicable Urine Mucus Not Applicable Ur Culture Indicated? No Urine Glucose Negative COVID-19 Source SARS-CoV-2 (PCR) Add-On Test Request 08/04/22 08/05/22 08/05/22 Unknown 05:06 05:06 WBC RBC Hgb Hct MCV MCH MCHC RDW Plt Count MPV Immature Gran % Neutrophils % Lymphocytes % Monocytes % Eosinophils % Basophils % Nucleated RBC % Absolute Neutrophils Absolute Lymphocytes Absolute Monocytes Absolute Eosinophils Absolute Basophils RBC Morphology PT INR APTT D-Dimer VBG Lactate Sodium 133 L Potassium 3.5 Chloride 95 L Carbon Dioxide 28.5 Anion Gap 9.5 BUN 29 H Creatinine 1.4 H Est GFR (CKD-EPI 2020) 49.56 Glucose 125 H Hemoglobin A1c 6.4 H Calcium 9.2 Magnesium 2.8 H Iron TIBC Transferrin % Sat Ferritin 76 Total Bilirubin AST ALT Alkaline Phosphatase Lactate Dehydrogenase 212 Troponin I 127 H* NT-Pro-B Natriuret Pep Total Protein Albumin Triglycerides 81 Total Cholesterol 101 LDL Cholesterol, Calc 51 HDL Cholesterol 34 L Lipase Procalcitonin Urine Color Urine Clarity Urine pH Ur Specific [place] Urine Protein Urine Ketones Urine Blood Urine Nitrite Urine Bilirubin Urine Urobilinogen Ur Leukocyte Esterase Urine RBC Urine WBC Ur Epithelial Cells Urine Crystals Urine Bacteria Urine Mucus Ur Culture Indicated? Urine Glucose COVID-19 Source SARS-CoV-2 (PCR) Add-On Test Request Cancelled 08/05/22 08/05/22 08/05/22 05:06 05:06 08:38 WBC 21.74 H RBC 4.38 Hgb 13.2 L Hct 39.0 L MCV 89 D MCH 30.1 MCHC 33.8 RDW 14.6 H Plt Count 166 MPV 10.6 Immature Gran % 0.6 Neutrophils % 72.5 Lymphocytes % 17.4 Monocytes % 8.3 Eosinophils % 0.9 Basophils % 0.3 Nucleated RBC % 0.0 Absolute Neutrophils 15.76 H Absolute Lymphocytes 3.78 H Absolute Monocytes 1.80 H Absolute Eosinophils 0.20 Absolute Basophils 0.07 RBC Morphology Normal PT INR APTT D-Dimer VBG Lactate Sodium Potassium Chloride Carbon Dioxide Anion Gap BUN Creatinine Est GFR (CKD-EPI 2020) Glucose Hemoglobin A1c Calcium Magnesium Iron 29 L TIBC 320 Transferrin % Sat 9 L Ferritin Total Bilirubin AST ALT Alkaline Phosphatase Lactate Dehydrogenase Troponin I NT-Pro-B Natriuret Pep Total Protein Albumin Triglycerides Total Cholesterol LDL Cholesterol, Calc HDL Cholesterol Lipase Procalcitonin 1.4 Urine Color Urine Clarity Urine pH Ur Specific [place] Urine Protein Urine Ketones Urine Blood Urine Nitrite Urine Bilirubin Urine Urobilinogen Ur Leukocyte Esterase Urine RBC Urine WBC Ur Epithelial Cells Urine Crystals Urine Bacteria Urine Mucus Ur Culture Indicated? Urine Glucose COVID-19 Source SARS-CoV-2 (PCR) Add-On Test Request 08/05/22 08/05/22 08:38 11:00 WBC RBC Hgb Hct MCV MCH MCHC RDW Plt Count MPV Immature Gran % Neutrophils % Lymphocytes % Monocytes % Eosinophils % Basophils % Nucleated RBC % Absolute Neutrophils Absolute Lymphocytes Absolute Monocytes Absolute Eosinophils Absolute Basophils RBC Morphology PT INR APTT D-Dimer 1221 H VBG Lactate 1.6 H Sodium Potassium Chloride Carbon Dioxide Anion Gap BUN Creatinine Est GFR (CKD-EPI 2020) Glucose Hemoglobin A1c Calcium Magnesium Iron TIBC Transferrin % Sat Ferritin Total Bilirubin AST ALT Alkaline Phosphatase Lactate Dehydrogenase Troponin I NT-Pro-B Natriuret Pep Total Protein Albumin Triglycerides Total Cholesterol LDL Cholesterol, Calc HDL Cholesterol Lipase Procalcitonin Urine Color Urine Clarity Urine pH Ur Specific [place] Urine Protein Urine Ketones Urine Blood Urine Nitrite Urine Bilirubin Urine Urobilinogen Ur Leukocyte Esterase Urine RBC Urine WBC Ur Epithelial Cells Urine Crystals Urine Bacteria Urine Mucus Ur Culture Indicated? Urine Glucose COVID-19 Source SARS-CoV-2 (PCR) Add-On Test Request
[2022-08-05] MEDS: Omnipaque 350 MG/ML 500 ML BTL-Imaging package 70 ML IJ (14:11)
--- NOTE | 2022-08-05 14:20 | DI.CT_ITS ---
Exam(s) CT CHEST PE CTA EXAM: CT CHEST PE CTA CLINICAL HISTORY: hypoxia, hypotension, concern for a PE. TECHNIQUE: Imaging Protocol: Axial CT angiography was performed with multi-slice acquisition and mu lti-planar and/or 3D reconstructions. CONTRAST MATERIAL: Intravenous: Omnipaque 350 contrast volume:70 mL COMPARISON: CT CHEST FOR PULMONARY EMBOLUS from 07/21/[address] ABDOMEN PELVIS W from 09/23/2021 FINDINGS: Tracheobronchial tree: Patent where visualized. Pulmonary parenchyma: No consolidation or dominant measurable mass. Moderately severe centrilobular a nd paraseptal emphysematous changes are present. Pulmonary Arteries: No evidence of filling defect to suggest pulmonary emboli. Mediastinum and Romana: Stable mildly prominent lymph nodes are seen in the mediastinum. The esophagus is grossly unremarkable except for small hiatal hernia. Visualized thyroid gland: Unremarkable. Pleura: No effusion or pneumothorax. Heart: The heart is not dilated. Coronary artery calcifications are present. No pericardial effusion . Aorta: Thoracic aorta non-dilated. No evidence of dissection. Atherosclerosis is present. Upper abdomen: Unremarkable. Soft tissues: Unremarkable. Bones: Within normal limits for the patient's age. IMPRESSION: No evidence of pulmonary embolism, thoracic aortic dissection or aneurysm. RADIATION DOSE DELIVERED: 302.62mGy.cm Total DLP DATA REPOSITORY: All CT scans at this facility are submitted to the National Radiology Data Registry (NRDR) Dose Index Registry (DIR) with the [employer] (ACR). RADIATION OPTIMIZATION: All CT scans at this facility use at least one of these dose optimization te chniques: automated exposure control; mA and/or kV adjustment per patient size (includes targeted exa ms where dose is matched to clinical indication); or iterative reconstruction.
[2022-08-05] MEDS: Enoxaparin 40 MG/0.4 ML SYR SC (15:49)
[2022-08-05] MEDS: Atorvastatin 40 MG TAB PO (20:20)
[2022-08-05] MEDS: Tamsulosin 0.4 MG CAPCR PO (20:20)
[2022-08-05] MEDS: Magnesium Oxide 400 MG TAB PO (20:21)
[2022-08-05] MEDS: Acetaminophen 325 MG TAB PO (23:01)
--- NOTE | 2022-08-05 23:42 | NUR.NOTE ---
Nursing Note: Around 1930 patient had a bladder scan of >400mL. This was after multiple attempts/ positions to void. Patient was in supine position, timothy-area was cleansed. Surroundings were draped with sterile drape, urethra was 3 swabbed with iodine and 14 su[place]ese straight tipped catheter used, sterile technique maintained throughout intervention. No resistance met with catheter advancement Dark brown/red Hematuria with small amount of clots present. Patient tolerated very well.
[2022-08-06] VITALS (13 sets, daily range): BP systolic 93–149; BP diastolic 52–74; PULSE 73–150; RESP 15–18; TEMP 36.4–37.7; O2SAT 91–95
[2022-08-06] MEDS: PIPERACILLIN/TAZO 3.375 GM in Normal Saline 50 ML IVPB ×4 (03:51→21:34)
[2022-08-06] MEDS: VANCOMYCIN/WATER (PEG) 1 GM/200 ML BAG IVPB ×2 (06:02→23:33)
[2022-08-06 06:15] LABS: Abs Immature Grans 0.11 10^3/uL (0.0-0.06); Absolute Basophil Count 0.09 10^3/uL (0.0-0.2); Absolute Monocyte Count 1.62 10^3/uL (0.1-0.8); Basophils % 0.6; Eosinophils % 3.5; HCT 32.4 % (40.0-50.0); Immature Grans % 0.7; Lymphocytes % 20.1; MCH 30.3 pg (27.0-33.0); MCV 89 fL (80-95); MPV 10.2 fL (8.0-11.0); Monocytes % 10.6; Neutrophils % 64.5; Platelet Count 137 10^3/uL (130-400); RBC 3.63 10^6/uL (4.36-5.78); RDW 14.6 % (11.8-14.1); RDW-SD 47.8 fL; WBC 15.24 10^3/uL (4.4-10.8)
[2022-08-06 06:25] LABS: Absolute Eosinophil Count 0.53 10^3/uL (0.0-0.7); Absolute Lymphocyte Count 3.06 10^3/uL (1.2-3.4); Absolute Neutrophil Count 9.83 10^3/uL (1.2-6.7); Anion Gap 7.6 mmol/L (3-11); BUN 35 mg/dL (7-18); CO2 27.4 mmol/L (21.0-32.0); CREATININE 1.4 mg/dL (0.70-1.30); Calcium 8.4 mg/dL (8.5-10.1); Chloride 100 mmol/L (98-107); Estimated GFR 49.56 (mL/min/1.73m2); Glucose 103 mg/dL (74-106); Magnesium 2.2 mg/dL (1.8-2.4); Potassium 3.5 mmol/L (3.5-5.1); Sodium 135 mmol/L (136-145)
[2022-08-06 07:02] LABS: Diff Comment Agrees w/ Instrument; RBC Morphology Normal
[2022-08-06 07:46] LABS: Lactate 1.5 mmol/L (0.6-1.4)
[2022-08-06] MEDS: Potassium Chloride 20 MEQ TABCR PO ×3 (09:41→19:58)
[2022-08-06] MEDS: Multivitamin w/Minerals TAB 1 TAB PO (09:42)
[2022-08-06] MEDS: Magnesium Oxide 400 MG TAB PO ×2 (09:42→19:58)
[2022-08-06] MEDS: Aspirin E.C. 81 MG TABEC PO (09:42)
[2022-08-06] MEDS: Cilostazol 100 MG TAB 50 MG PO (09:42)
[2022-08-06] MEDS: Calcium 600mg/Vit D 200U TAB 1 TAB PO ×2 (09:42→19:58)
[2022-08-06] MEDS: Omeprazole 20 MG CAPCR PO (09:42)
--- NOTE | 2022-08-06 10:23 | PDOC.CMPRO ---
- If Service Date Differs Date of service: 08/06/22 Time of Service: 10:24 Care Management Progress Note S/O: Alexander was lying in bed when CM met with him. He reported that he is feeling fairly well today. Per report, vanco was added to his IV abx regiment, and his wbc is beginning to normalize. He continues to have hematuria, but it is improving. He will remain on IV abx while awaiting blood culture results. He is comfortable with remaining at [facility], and stated that he feels he is getting good care. CM will continue to follow. A: Alexander is an 82 year old male admitted to [facility] on 08/05/22 for chest pain. P: Anticipate Alexander will return home when medically cleared. His family will drive him home via private vehicle. He will follow up with his PCP and discharge plan of care. CM will continue to follow.
[2022-08-06] MEDS: Enoxaparin 40 MG/0.4 ML SYR SC (15:53)
[2022-08-06] MEDS: Metoprolol 12.5 MG TAB PO ×2 (15:53→19:58)
[2022-08-06] MEDS: Normal Saline Flush 10 ML SYR IVP ×4 (15:54→23:34)
--- NOTE | 2022-08-06 15:55 | W.PM.PROGNOT ---
Date of Service Date of service: 08/06/22 Time of Service: 15:55 Assessment and Plan Assessment and plan (1) Sepsis: Status: Acute Assessment and plan: Due to presumed pulmonary source. Blood cx negative. Procalcitonin elevated - trend. Continue vancomycin/zosyn. (2) Hypoxia: Status: Resolved Assessment and plan: Post-op. CTA chest negative for acute PE and for pneumonia. Today's exam is c/w CHF. Will resume IV diuresis. Reportedly, low O2 sats were done on patient's fingers and ear probe results are consistently higher. (3) Paroxysmal SVT (supraventricular tachycardia): Status: Acute Assessment and plan: Start low dose metoprolol and monitor BP. (4) Hypotension: Status: Resolved Assessment and plan: In setting of orthostatic hypotension, sepsis, diuresis, flomax, possible PE, urinary retention with difficulty passing urine and clots (?vagal component). Will monitor BP with resumption of diuretics and addition of metoprolol. (5) Hematuria: Status: Acute Assessment and plan: As above Urology consulted. (6) Elevated troponin: Status: Acute Assessment and plan: In setting of acute CHF and impending sepsis. I suspect this is demand ischemia. Troponins have essentially flattened out. Echo w/o wall motion abnormalities and MPI was negative in 2017. No PE on CTA. Would benefit from having an MPI stress test once more stable. Could be done as outpatient. (7) Angina at rest: Status: Acute Assessment and plan: As above (8) Acute congestive heart failure: Status: Acute Assessment and plan: HFPEF, mild dynamic outflow tract obstruction, mild pulmonary hypertension. Resume diuresis as does appear fluid overloaded. (9) Anemia: Status: Chronic Assessment and plan: Does have evidence of iron deficiency. s/p venofer. I suspect GI blood loss chronically; hematuria is also contributing. (10) Chronic obstructive lung disease: Status: Chronic Assessment and plan: Not in an acute exacerbation at this time. No change in therapy. (11) Hypertension: Status: Acute Assessment and plan: Trial low dose metoprolol. Qualifiers: Hypertension type: primary hypertension Qualified Code(s): I10 - Essential (primary) hypertension (12) Peripheral vascular disease: Status: Chronic Assessment and plan: continue Cilostazol (13) Sanchez's esophagus: Status: Chronic Assessment and plan: continue omeprazole (14) Benign prostatic hyperplasia: Assessment and plan: continue flomax. Urology following (15) Hyperlipidemia: Assessment and plan: Continue atorvastatin (16) Hypokalemia: Status: Acute Assessment and plan: Continue potassium repletion. (17) Hypomagnesemia: Status: Resolved Assessment and plan: Recheck again in am. Continue PO magnesium. (18) Hypocalcemia: Status: Ruled-out Assessment and plan: Recheck in am (19) DVT prophylaxis: Status: Acute Assessment and plan: SC enoxaparin (20) Discharge planning issues: Status: Acute Assessment and plan: Full code C/s PT Consider palliative care consult Subjective Subjective Interval history since last seen: Mr Rodriguez feels better today, he states. He had two bouts of 12 beats of SVT (HR 150) which were asymptomatic. He denies dizziness, chest pain, shortness of breath, nausea. He has had two episodes of urinary retention requiring straight caths (575 cc, 615 cc). The urine remains bloody, but better, per nursing. Exam Narrative Exam Narrative: General: Pleasant elderly male who is A&Ox3, in bed, on RA, not having dyspnea/tachypnea HEENT: EOMI, MMM Heart: RRR Lungs: crackles at B bases Abdomen: soft, nontender, nondistended Extremities: +1 BLE edema, symmetric, healing excoriations on BLEs Objective Last Vital Signs Temp 36.9 C 08/06/22 15:39 Pulse 79 08/06/22 15:39 Resp 18 08/06/22 15:39 BP 138/71 08/06/22 15:39 Pulse Ox 93 08/06/22 15:39 Laboratory Results - last 24 hr 08/06/22 08/06/22 08/06/22 06:02 06:02 07:40 WBC 15.24 H RBC 3.63 L Hgb 11.0 L D Hct 32.4 L MCV 89 MCH 30.3 MCHC 34.0 RDW 14.6 H Plt Count 137 MPV 10.2 Immature Gran % 0.7 Neutrophils % 64.5 Lymphocytes % 20.1 Monocytes % 10.6 Eosinophils % 3.5 Basophils % 0.6 Nucleated RBC % 0.0 Absolute Neutrophils 9.83 H Absolute Lymphocytes 3.06 Absolute Monocytes 1.62 H Absolute Eosinophils 0.53 Absolute Basophils 0.09 RBC Morphology Normal VBG Lactate 1.5 H Sodium 135 L Potassium 3.5 Chloride 100 Carbon Dioxide 27.4 Anion Gap 7.6 BUN 35 H Creatinine 1.4 H Est GFR (CKD-EPI 2020) 49.56 Glucose 103 Calcium 8.4 L Magnesium 2.2
[2022-08-06] MEDS: Furosemide 20 MG/2 ML VIAL IVP (16:43)
[2022-08-06] MEDS: Atorvastatin 40 MG TAB PO (19:58)
[2022-08-06] MEDS: Tamsulosin 0.4 MG CAPCR PO (19:58)
[2022-08-06] MEDS: Docusate Sodium 100 MG CAP PO (19:58)
[2022-08-06] MEDS: Acetaminophen 325 MG TAB PO (23:33)
[2022-08-07] VITALS (17 sets, daily range): BP systolic 91–155; BP diastolic 54–75; PULSE 62–95; RESP 16–18; TEMP 36.2–37; O2SAT 92–96
[2022-08-07] MEDS: PIPERACILLIN/TAZO 3.375 GM in Normal Saline 50 ML IVPB ×4 (03:47→21:19)
[2022-08-07 06:24] LABS: Anion Gap 9.7 mmol/L (3-11); BUN 29 mg/dL (7-18); CO2 25.3 mmol/L (21.0-32.0); CREATININE 1.2 mg/dL (0.70-1.30); Calcium 8.6 mg/dL (8.5-10.1); Chloride 100 mmol/L (98-107); Estimated GFR 59.63 (mL/min/1.73m2); Glucose 100 mg/dL (74-106); Potassium 3.7 mmol/L (3.5-5.1); Sodium 135 mmol/L (136-145)
[2022-08-07 06:26] LABS: Abs Immature Grans 0.11 10^3/uL (0.0-0.06); Absolute Basophil Count 0.07 10^3/uL (0.0-0.2); Absolute Eosinophil Count 0.77 10^3/uL (0.0-0.7); Absolute Lymphocyte Count 3.62 10^3/uL (1.2-3.4); Absolute Monocyte Count 1.41 10^3/uL (0.1-0.8); Absolute Neutrophil Count 7.82 10^3/uL (1.2-6.7); Basophils % 0.5; Eosinophils % 5.6; HCT 31.3 % (40.0-50.0); HGB 10.7 g/dL (13.5-17.5); Immature Grans % 0.8; Lymphocytes % 26.2; MCH 30.5 pg (27.0-33.0); MCHC 34.2 % (32.0-36.0); MCV 89 fL (80-95); MPV 10.9 fL (8.0-11.0); Monocytes % 10.2; Neutrophils % 56.7; Platelet Count 161 10^3/uL (130-400); RBC 3.51 10^6/uL (4.36-5.78); RDW 14.6 % (11.8-14.1); RDW-SD 47.9 fL
[2022-08-07 07:38] LABS: Procalcitonin 0.5 ng/mL
[2022-08-07] MEDS: Omeprazole 20 MG CAPCR PO (07:47)
[2022-08-07] MEDS: Multivitamin w/Minerals TAB 1 TAB PO (07:47)
[2022-08-07] MEDS: Cilostazol 100 MG TAB 50 MG PO (07:47)
[2022-08-07] MEDS: Metoprolol 12.5 MG TAB PO ×2 (07:47→20:10)
[2022-08-07] MEDS: Calcium 600mg/Vit D 200U TAB 1 TAB PO ×2 (07:47→20:11)
[2022-08-07] MEDS: Aspirin E.C. 81 MG TABEC PO (07:47)
[2022-08-07] MEDS: Magnesium Oxide 400 MG TAB PO ×2 (07:48→20:10)
[2022-08-07] MEDS: Acetaminophen 325 MG TAB PO ×2 (07:48→22:37)
[2022-08-07] MEDS: Potassium Chloride 20 MEQ TABCR PO ×3 (07:48→20:11)
[2022-08-07] MEDS: Furosemide 20 MG/2 ML VIAL IVP ×2 (09:05→15:46)
[2022-08-07] MEDS: Normal Saline Flush 10 ML SYR IVP ×5 (09:06→15:46)
--- NOTE | 2022-08-07 10:45 | PT.INIE ---
Date of service: 08/07/22 Time of Service: 10:45 PT Notes Visit Reasons: Chest Pain Physical Therapy Inpatient Initial Evaluation Date: 08/07/2022 Referring Doctor: Thuy Roche MD PT Orders: PT CONSULT: Limited ability Precautions: Fall. Standard. Activity as tolerated. Patient Profile/Admitting Diagnosis: Alexander is an 82-year-old male with diagnoses of sepsis, hypoxia, PSVT, hematuria, elevated troponin, angina at rest, acute CHF, Anemia, HTN, PVD, BPH, Sanchez's esophagus, hypokalmeia, hypomagnesemia, hypocalcemia referred to PT to address functional mobility impairments. PMHX: All Active Problems?(Updated 08/04/22 @ 16:40 by Phil Blanco MD) Hypomagnesemia (Acute) Hypokalemia (Acute) Hypocalcemia (Acute) Acute congestive heart failure (Acute) Anemia (Chronic) Angina at rest (Acute) Elevated troponin (Acute) Elev transaminase/LDH (Acute) Arterial occlusion, lower extremity (Acute) B/L Cardiac murmur (Acute) ? mild aortic stenosis Chest pain (Acute) Chest pain with abnormal EKG neg MPI 09/08, repeated 08/11 still neg.? echo also neg. Chronic obstructive lung disease (Chronic) Diastasis recti (Acute) Hypertension (Acute) Stress test, 1999, with hypertensive response Peripheral vascular disease (Acute) Being actively followed by [facility] Umbilical hernia (Acute) Inguinal adenopathy (Acute) Abnormal CT scan, gastrointestinal tract (Acute) Esophagitis (Acute ~09/2021) Esophageal reflux (Chronic ~09/2021) Sanchez's esophagus (Acute ~09/2021) Venous insufficiency of right lower extremity (Acute) Cellulitis (Acute) Stasis dermatitis (Acute) 03/2022 bilateral and chronic Prostate nodule (Acute) Phimosis of penis (Acute) Medical History? Aftercare for healing traumatic fracture of hip (08/25/12) LEFT HIP Arcus senilis Benign prostatic hyperplasia Right prostatic nodule with normal PSA Community acquired pneumonia Complete edentulism, unspecified History of bladder cancer History of fracture of hip History of tobacco use QUIT 2004 Hyperlipidemia Influenza Primary malignant neoplasm of bladder (04/06/13) Surgical History? Colonoscopy - MAC 2004 Fracture, Open Treatment (~08/2012) LEFT HIP History of esophagogastroduodenoscopy (EGD) (~09/2021) Hx of cystoscopy Hx of vein stripping pt.report vein in R leg removed and replaced with another Social History/Home Situation: Sister lives with patient in a two story house with 4 steps to enter [employer] rails on B sides. He has 12 steps to his bedroom, rails on B sisdes. Independent with all ADLAS ambulation without and AD. Sister takes care of his meals and medical transportation. Equipment Owned/DME: None Subjective: Agreeable to consult. Denies chest pain, headache, lightheadedness. Report minimal shortness of breath that resolved with rest. Objective: General Observation: Supine in bed. Osuna catheter in place. Perineal area paded to absorb sanguinous drainage. Speech somewhat difficult to understand. Mental Status: Alert and oriented as to person, place, time, and purpose. Able to pay attention, focus, and respond appropriately. Pain: Denies ROM: Right Upper Extremity: Shoulder Flexion WFL. Shoulder abduction WFL. Elbow flexion WFL. Wrist flexion WFL. Functional opening and closing of hand WFL. Left Upper Extremity: Shoulder Flexion WFL. Shoulder abduction WFL. Elbow flexion WFL. Wrist flexion WFL. Functional opening and closing of hand WFL. Right Lower Extremity: Hip flexion WFL. Hip abduction WFL. Knee flexion WFL. Ankle dorsiflexion WFL. Ankle plantarflexion WFL. Left Lower Extremity: Hip flexion WFL. Hip abduction WFL. Knee flexion WFL. Ankle dorsiflexion WFL. Ankle plantarflexion WFL. Strength: Right Upper Extremity: Shoulder flexors 4-/5. Shoulder abductors 4-/5. Elbow flexors 4-4/5. Elbow extensors 4-/5. Community Development Manager strong. Left Upper Extremity: Shoulder flexors 4-/5. Shoulder abductors 4-/5. Elbow flexors 4-4/5. Elbow extensors 4-/5. Community Development Manager strong. Right Lower Extremity: Hip flexors 4-/5. Hip abductors 4-/5. Knee flexors 4-/5. Knee extensors 4-/5. Ankle dorsiflexors 4-/5. Ankle plantarflexors 4-/5. Left Lower Extremity: Hip flexors 4-/5. Hip abductors 4-/5. Knee flexors 4-/5. Knee extensors 4-/5. Ankle dorsiflexors 4-/5. Ankle plantarflexors 4-/5. Bed Mobility/Transfers: Supine to sit stand by assist Sit to supine stand by assist Sit to stand stand by assist Stand to sit stand by assist Bed to reclining chair stand by assist Gait: Instructed patient with level surface ambulation of 200 feet requiring stand by assist. Amira decreased. Mild shortness of breath resolved with rest. Balance: Static Sitting: Normal Dynamic Sitting: Normal Static Standing: Fair Dynamic Standing: Fair Special Tests: Mobility Limitations Standardized Measure [facility] AM-PAC 6 clicks Basic Mobility Inpatient Short Form: Raw Score: 22 CMS Score: 21% deficit Informed Consent/Education: Patient was instructed in purpose of PT consult and plan of care. Agreeable to proceed with established PT POC to achieve personal goals. Assessment: Alexander is an 82-year-old male with diagnoses of sepsis, hypoxia, PSVT, hematuria, elevated troponin, angina at rest, acute CHF, Anemia, HTN, PVD, BPH, Sanchez's esophagus, hypokalmeia, hypomagnesemia, hypocalcemia referred to PT to address functional mobility impairments. Patient presents with clinical signs and symptoms consistent with current/admitting diagnoses that have resulted to mobility limitations, gait instability, generalized weakness, and overall ADL decline as demonstrated by the following impairment level findings: 1. Decreased strength to B UE/LE major muscle groups 2. Impaired sitting/standing balance 3. Impaired activity tolerance 4. Shortness of breath Impairments are contributing to the following functional limitations: 1. Difficulty with ambulation without assistive device 2. Increased completion time for mobility ADL performance 3. Increased risk for falls 4. Difficulty with managing steps alone safely Patient is assessed as a 22625 moderate complexity based on the following: History: 82-year-old male with past medical history as indicated above Examination: Demonstrable impairment in strength, balance, and mobility level with underlying impairments and functional limitations as exhibited above as well as deficit score of 22% utilizing the [facility] Mobility Inpatient Short Form Presentation: Evolving Decision Makin moderate complexity Goals: Goals X1 week 1. Supine-Sit independent 2. Sit-Supine independent 3. Sit-Stand independent 4. Stand-Sit independent with no AD 5. Bed-Chair independent with no AD 6. Chair-Bed independent with no AD 7. Independent gait on level surface with use of SPC for at least 300 feet without report of pain nor dyspnea 8. Independent stair negotiation while holding onto B rails for at least 12 steps without report of pain nor dyspnea 9. Independent with home exercise program 10. Good static and dynamic standing balance/tolerance Plan of Care/Treatment Plan: 1-2x/day, 7 days/week x 1 week. Plan of care has been reviewed with the MEDICAL DEVICE SALES REPRESENTATIVE providing the service under Physical Therapy direction. Initiate Physical Therapy intervention for pain management as needed, strengthening, bed mobility, transfers, gait, stairs, balance training, and use of assistive device. DISCHARGE RECOMMENDATIONS: [] Home with no services [] [X] Home with services. Patient will benefit from home health PT services in order to progress mobility level using least restrictive assistive ambulatory device, assess home safety, identify additional equipment needs, and establish a functional maintenance program that will increase ability of patient to remain at home. [] Home with outpatient PT [] [] SNF for continued rehabilitation [] [] [facility] [] [] SNF versus LTC based on ability to participate and progress [] TREATMENT CODE/TIME: 28659 x 25 minutes beginning at 10:45 AM. Thank you for the opportunity to participate in the care of this patient. Fatmata Mendez PT, DPT, CLT [facility] [place], [place]
--- NOTE | 2022-08-07 12:21 | PDOC.CMPRO ---
- If Service Date Differs Date of service: 08/07/22 Time of Service: 12:21 Care Management Progress Note S/O: Alexander was lying in bed when CM met with him. His sister, Xin was in the room visiting. Alexander stated that he is feeling better now, but he had some chest pain earlier and was given medication for it. His nurse assessed his pain while CM was in the room, and he stated that it had improved. CM discussed services, and he is agreeable to having the support post hospitalization. CM will continue to follow. A: Alexander is an 82 year old male admitted to [facility] on 08/05/22 for chest pain. P: Anticipate Alexander will return home when medically cleared. His family will drive him home via private vehicle. He will follow up with his PCP and discharge plan of care. CM will continue to follow.
--- NOTE | 2022-08-07 14:22 | PT.INTREAT ---
Date of service: 08/07/22 Time of Service: 13:37 PT Notes Visit Reasons: Chest Pain Inpatient Physical Therapy Treatment Note [facility] Date: 08/07/2022 PRECAUTIONS: Activity as tolerated SUBJECTIVE: Alexander is pleasant and agreeable to participating in PT.? He states that he was hoping to take a walk this afternoon. He states that he feels steady and would be safe to return to home. OBJECTIVE:? PAIN: No c/o pain ? BED MOBILITY/TRANSFERS? Supine-sit: Min A with HOB flat Sit-stand: SBA? Stand-sit: SBA ? GAIT? Assistive Device: FWW? Weight bearing: Full Assist: SBA ? Distance:? 100' x2 ? Deviation: Slow pace, cueing for FWW management ? STAIRS: Up/down 6x4 and 4x6 using B rails and a step-to pattern with supervision? ASSESSMENT:? Patient tolerated session well without complaint. He was noted to be slightly SOB with activity. He requires cueing for FWW management for safety. PLAN: Continue with gait training with FWW support, as well as global strengthening. TREATMENT CODE/TIME: 25 minutes; 27735 x2 (13:37)
[2022-08-07] MEDS: Enoxaparin 40 MG/0.4 ML SYR SC (15:58)
--- NOTE | 2022-08-07 16:15 | RT.EKG_ITS ---
APPROVED REPORT Exam: Resting ECG Reason for Exam: chest pain Patient Location: I HR:63 bpm ECG Measurements Heart Rate 63 AXIS UT 173 P 12 QRSd 93 QRS 30 QT 393 T 61 QTc 403 Conclusion Sinus rhythm...normal P axis, V-rate 50- 99 Atrial premature complex...SV complex w/ short R-R interval
--- NOTE | 2022-08-07 16:20 | W.PM.PROGNOT ---
Date of Service Date of service: 08/07/22 Time of Service: 16:20 Assessment and Plan Assessment and plan (1) Angina at rest: Status: Acute Assessment and plan: No evidence of ischemia on EKG, but CP does seem to be responding to nitroglycerin. Continue to monitor on tele. Trend troponins. (2) Sepsis: Status: Acute Assessment and plan: Due to presumed pulmonary source. Blood cx negative. MRSA screen negative, but would keep vanco on board given recent instrumentation and repeat UA. Procalcitonin better. (3) Hypoxia: Status: Resolved Assessment and plan: Post-op. CTA chest negative for acute PE and for pneumonia. Today's exam is c/w CHF. Continue IV diuresis. Reportedly, low O2 sats were done on patient's fingers and ear probe results are consistently higher. (4) Paroxysmal SVT (supraventricular tachycardia): Status: Acute Assessment and plan: Conitnue low dose metoprolol and monitor BP. (5) Hypotension: Status: Resolved Assessment and plan: In setting of orthostatic hypotension, sepsis, diuresis, flomax, possible PE, urinary retention with difficulty passing urine and clots (?vagal component). Tolerating resumption of diuretics and addition of metoprolol. (6) Hematuria: Status: Acute Assessment and plan: As above Urology consulted. Has a cabrera catheter now (for urinary retention) with virtually no blood in urine. (7) Elevated troponin: Status: Acute Assessment and plan: In setting of acute CHF and impending sepsis. I suspect this is demand ischemia. Troponins have essentially flattened out, but are getting retrended now given CP. Echo w/o wall motion abnormalities and MPI was negative in 2017. No PE on CTA. Would benefit from having an MPI stress test once more stable. Could be done as outpatient. (8) Acute congestive heart failure: Status: Acute Assessment and plan: HFPEF, mild dynamic outflow tract obstruction, mild pulmonary hypertension. Conitnue diuresis as does appear fluid overloaded. (9) Anemia: Status: Chronic Assessment and plan: Does have evidence of iron deficiency. s/p venofer. I suspect GI blood loss chronically; hematuria is also contributing. (10) Chronic obstructive lung disease: Status: Chronic Assessment and plan: Not in an acute exacerbation at this time. No change in therapy. (11) Hypertension: Status: Acute Assessment and plan: Tolerating low dose metoprolol. Qualifiers: Hypertension type: primary hypertension Qualified Code(s): I10 - Essential (primary) hypertension (12) Peripheral vascular disease: Status: Chronic Assessment and plan: continue Cilostazol (13) Sanchez's esophagus: Status: Chronic Assessment and plan: continue omeprazole (14) Benign prostatic hyperplasia: Assessment and plan: continue flomax. Urology following (15) Hyperlipidemia: Assessment and plan: Continue atorvastatin (16) Hypokalemia: Status: Resolved Assessment and plan: Continue potassium repletion. (17) Hypomagnesemia: Status: Resolved Assessment and plan: Recheck again in am. Continue PO magnesium. (18) Hypocalcemia: Status: Ruled-out Assessment and plan: Recheck in am (19) DVT prophylaxis: Status: Acute Assessment and plan: SC enoxaparin (20) Discharge planning issues: Status: Acute Assessment and plan: Full code Pt recommends home health PT. Consult palliative care. Subjective Subjective Interval history since last seen: C/o L-sided chest pain that just started. The pain is mildly reproducible with palpation, but not quite. No dizziness, shortness of breath, nausea. Had a cabrera catheter inserted overnight. No episodes of SVT since being started on metoprolol. Exam Narrative Exam Narrative: General: Pleasant elderly male who is A&Ox3, in bed, on RA, not having dyspnea/tachypnea HEENT: EOMI, MMM Heart: RRR, no m/r/g, chest pain mildly but not entirely reproducible with palpation Lungs: crackles at B bases Abdomen: soft, nontender, nondistended Extremities: trace BLE edema, symmetric, healing excoriations on BLEs Objective Last Vital Signs Temp 37 C 08/07/22 15:29 Pulse 80 08/07/22 15:29 Resp 18 08/07/22 15:29 BP 121/67 08/07/22 15:29 Pulse Ox 94 08/07/22 15:29 Laboratory Results - last 24 hr 08/07/22 08/07/22 08/07/22 05:42 05:42 05:42 WBC 13.80 H RBC 3.51 L Hgb 10.7 L Hct 31.3 L MCV 89 MCH 30.5 MCHC 34.2 RDW 14.6 H Plt Count 161 MPV 10.9 Immature Gran % 0.8 Neutrophils % 56.7 Lymphocytes % 26.2 Monocytes % 10.2 Eosinophils % 5.6 Basophils % 0.5 Nucleated RBC % 0.0 Absolute Neutrophils 7.82 H Absolute Lymphocytes 3.62 H Absolute Monocytes 1.41 H Absolute Eosinophils 0.77 H Absolute Basophils 0.07 Sodium 135 L Potassium 3.7 Chloride 100 Carbon Dioxide 25.3 Anion Gap 9.7 BUN 29 H Creatinine 1.2 Est GFR (CKD-EPI 2020) 59.63 Glucose 100 Calcium 8.6 Magnesium 2.0 Procalcitonin 0.5 Objective Narrative Objective Narrative: EKG: NSR, HR 63, no acute ischemia
[2022-08-07] MEDS: nitroGLYcerin 0.4 MG TAB SL ×5 (16:24→22:47)
[2022-08-07 16:36] LABS: Vancomycin, Trough 12.4 ug/mL (10.0-20.0)
[2022-08-07 16:45] LABS: Troponin I 1353 ng/L (<or=60)
[2022-08-07] MEDS: MORPHine 2 MG/ML SYR 1 MG IVP ×3 (16:56→22:56)
[2022-08-07] MEDS: Aspirin E.C. 325 MG TABEC PO (17:00)
[2022-08-07] MEDS: nitroGLYcerin 2% 1 INCH/1 GM PKT TP ×2 (17:44→23:27)
[2022-08-07] MEDS: VANCOMYCIN/WATER (PEG) 1 GM/200 ML BAG IVPB (17:50)
[2022-08-07 18:12] LABS: PTT Activated 35.9 sec (21.0-27.5)
[2022-08-07 18:13] LABS: Bilirubin Negative (Negative); Blood Small (Negative); Clarity Clear (Clear); Glucose Negative (Negative); Ketones Negative (Negative); Leukocyte Esterase Negative (Negative); Nitrite Negative (Negative); Urobilinogen 0.2 EU/dL (Up TO 0.2)
[2022-08-07 18:19] LABS: Bacteria Negative HPF (Negative); C & S Indicated? No; Casts Negative LPF (Negative); Crystals Negative HPF (Negative); Epithelial Cells Rare HPF (Negative); Mucus Negative (Negative); WBC Negative HPF (0-5)
[2022-08-07] MEDS: Tamsulosin 0.4 MG CAPCR PO (20:10)
[2022-08-07 20:11] LABS: Troponin I 1659 ng/L (<or=60)
[2022-08-07] MEDS: Atorvastatin 40 MG TAB PO (20:11)
--- NOTE | 2022-08-07 22:30 | RT.EKG_ITS ---
APPROVED REPORT Exam: Resting ECG Reason for Exam: Chest pain Patient Location: I HR:72 bpm ECG Measurements Heart Rate 72 AXIS MO 171 P 16 QRSd 96 QRS 46 QT 367 T 74 QTc 402 Conclusion Sinus rhythm...normal P axis, V-rate 50- 99 Inferior infarct, old...Q >35mS, II III aVF
[2022-08-07 22:59] LABS: Troponin I 1384 ng/L (<or=60)
[2022-08-08] VITALS (14 sets, daily range): BP systolic 92–132; BP diastolic 54–73; PULSE 61–75; RESP 16–20; TEMP 36.2–37; O2SAT 91–97
[2022-08-08] MEDS: Normal Saline Flush 10 ML SYR IVP ×5 (00:03→19:10)
[2022-08-08] MEDS: MORPHine 2 MG/ML SYR IVP (00:03)
--- NOTE | 2022-08-08 00:15 | RT.EKG_ITS ---
APPROVED REPORT Exam: Resting ECG Reason for Exam: Re-assessment of chest pain Patient Location: I HR:72 bpm ECG Measurements Heart Rate 72 AXIS OK 73 P 18 QRSd 89 QRS 40 QT 380 T 63 QTc 416 Conclusion Sinus rhythm...normal P axis, V-rate 50- 99 Short OK interval...OK <110mS Abnormal R-wave progression, early transition...QRS area>0 in V2 Probable inferior infarct, old...Q>35mS, II III aVF
[2022-08-08 00:40] LABS: PTT Activated 67.5 sec (21.0-27.5)
[2022-08-08] MEDS: Pantoprazole 40 MG VIAL IVP ×3 (00:41→19:10)
[2022-08-08 01:00] LABS: Source Nasal/Nares
[2022-08-08 01:30] LABS: COVID-19 PCR Negative (Negative)
[2022-08-08] MEDS: PIPERACILLIN/TAZO 3.375 GM in Normal Saline 50 ML IVPB ×4 (03:53→22:34)
[2022-08-08] MEDS: nitroGLYcerin 2% 1 INCH/1 GM PKT TP ×3 (05:36→19:10)
[2022-08-08 06:57] LABS: Abs Immature Grans 0.25 10^3/uL (0.0-0.06); Absolute Basophil Count 0.09 10^3/uL (0.0-0.2); Absolute Eosinophil Count 0.96 10^3/uL (0.0-0.7); Absolute Lymphocyte Count 4.03 10^3/uL (1.2-3.4); Absolute Neutrophil Count 7.62 10^3/uL (1.2-6.7); Basophils % 0.6; Eosinophils % 6.7; HCT 30.8 % (40.0-50.0); HGB 10.6 g/dL (13.5-17.5); Immature Grans % 1.7; Lymphocytes % 28.1; MCHC 34.4 % (32.0-36.0); MCV 90 fL (80-95); MPV 10.1 fL (8.0-11.0); Monocytes % 9.8; Neutrophils % 53.1; Platelet Count 164 10^3/uL (130-400); RBC 3.42 10^6/uL (4.36-5.78); RDW 14.6 % (11.8-14.1); RDW-SD 48.1 fL; WBC 14.35 10^3/uL (4.4-10.8)
[2022-08-08 07:12] LABS: Absolute Monocyte Count 1.41 10^3/uL (0.1-0.8)
--- NOTE | 2022-08-08 07:15 | RT.EKG_ITS ---
APPROVED REPORT Exam: Resting ECG Reason for Exam: chest pain Patient Location: I HR:64 bpm ECG Measurements Heart Rate 64 AXIS OK 187 P -2 QRSd 101 QRS 40 QT 391 T 72 QTc 404 Conclusion Sinus rhythm...normal P axis, V-rate 50- 99 Atrial premature complex...SV complex w/ short R-R interval Probable inferior infarct, old...Q>35mS, II III aVF Baseline wander in lead(s) V5
[2022-08-08 07:26] LABS: Anion Gap 6.7 mmol/L (3-11); BUN 31 mg/dL (7-18); CO2 25.3 mmol/L (21.0-32.0); CREATININE 1.4 mg/dL (0.70-1.30); Calcium 8.5 mg/dL (8.5-10.1); Chloride 102 mmol/L (98-107); Estimated GFR 49.56 (mL/min/1.73m2); Glucose 93 mg/dL (74-106); Magnesium 1.9 mg/dL (1.8-2.4); Potassium 4.2 mmol/L (3.5-5.1); Sodium 134 mmol/L (136-145)
[2022-08-08 09:03] LABS: PTT Activated 53.7 sec (21.0-27.5)
[2022-08-08 10:07] LABS: Lab Add On Test DONE
[2022-08-08] MEDS: Cilostazol 100 MG TAB 50 MG PO (10:19)
[2022-08-08] MEDS: Multivitamin w/Minerals TAB 1 TAB PO (10:19)
[2022-08-08] MEDS: Metoprolol 12.5 MG TAB PO ×2 (10:20→19:11)
[2022-08-08] MEDS: Aspirin E.C. 81 MG TABEC PO (10:20)
[2022-08-08] MEDS: Potassium Chloride 20 MEQ TABCR PO ×3 (10:20→19:11)
[2022-08-08] MEDS: Magnesium Oxide 400 MG TAB PO ×2 (10:20→19:11)
[2022-08-08] MEDS: Calcium 600mg/Vit D 200U TAB 1 TAB PO ×2 (10:20→19:10)
[2022-08-08] MEDS: Furosemide 20 MG/2 ML VIAL IVP ×2 (10:21→16:53)
[2022-08-08] MEDS: VANCOMYCIN/WATER (PEG) 1 GM/200 ML BAG IVPB ×2 (10:28→23:45)
[2022-08-08 10:35] LABS: Troponin I 1090 ng/L (<or=60)
--- NOTE | 2022-08-08 11:15 | RT.EKG_ITS ---
APPROVED REPORT Exam: Resting ECG Reason for Exam: chest pain Patient Location: I HR:55 bpm ECG Measurements Heart Rate 55 AXIS ND 148 P -40 QRSd 98 QRS 27 QT 426 T 72 QTc 408 Conclusion Sinus rhythm...normal P axis, V-rate 50- 99 Atrial premature complex...SV complex w/ short R-R interval Otherwise normal
--- NOTE | 2022-08-08 11:26 | PDOC.CMPRO ---
- If Service Date Differs Date of service: 08/08/22 Time of Service: 11:26 Care Management Progress Note S/O: Alexander was sitting up in his chair when CM with him. He reported that he is feeling ok, but he wishes he could eat. He stated that he is NPO in anticipation of a transfer to [facility]. Per report, he has been accepted for transfer, pending bed availability. He is agreeable to this plan. CM will continue to follow. A: Alexander is an 82 year old male admitted to [facility] on 08/05/22 for chest pain. P: Anticipate Alexander will return home when medically cleared. His family will drive him home via private vehicle. He will follow up with his PCP and discharge plan of care. CM will continue to follow.
[2022-08-08] MEDS: Milk of Magnesia 30 ML CUP PO (11:52)
--- NOTE | 2022-08-08 17:23 | W.PM.DS.N ---
Date of service: 08/08/22 Time of Service: 17:23 DS: Diagnosis Discharge Diagnosis (1) NSTEMI (non-ST elevated myocardial infarction): Status: Acute (2) Angina at rest: Status: Acute (3) Acute congestive heart failure: Status: Acute Asessment and Plan: LVEF 50%. (4) FUO (fever of unknown origin): Status: Acute Asessment and Plan: Suspected bacterial etiology with a positive procalcitonin; however, blood cx negative, serial UAs negative, and no evidence of infiltrate on chest imaging. (5) Hypoxia: Status: Resolved Asessment and Plan: Not confirmed - possible false low reading on the finger. (6) Paroxysmal SVT (supraventricular tachycardia): Status: Acute (7) Pulmonary hypertension: Status: Chronic Asessment and Plan: RVSP 37 mmHg (8) Hypotension: Status: Resolved (9) Hematuria: Status: Resolved (10) Anemia: Status: Chronic (11) Chronic obstructive lung disease: Status: Chronic (12) Peripheral vascular disease: Status: Chronic (13) Sanchez's esophagus: Status: Chronic (14) Benign prostatic hyperplasia: (15) Hyperlipidemia: (16) Hypokalemia: Status: Resolved (17) Hypomagnesemia: Status: Resolved (18) Hypocalcemia: Status: Ruled-out (19) Urinary retention: Status: Acute Asessment and Plan: S/p cabrera catheter. Will need a voiding trial prior to discharge home. Discharge Plan Disposition Patient Disposition: [facility] Condition: Stable Discharge Details Reason For Visit: Chest Pain Admit Date/Time: 08/05/22 11:02 Admit Provider: Phil Blanco Attending Provider: Phil Blanco Primary Care Provider: Erich Long Hospital Course Hospital Course: Mr Rodriguez is an 82 year old male with PMHx of PAD, non-oxygen dependent COPD, HTN, hyperlipidemia, GERD, who was admitted to [facility] hospitalist service on 08/04/22 for a type 2 NSTEMI felt to be due to acute CHF after developing chest pain upon waking up from anesthesia after cystoscopy for a possible bladder mass (pathology negative) and circumcision for phimosis. The patient had mildly elevated troponins (142->96->134->127) with chest pain resolving. He was initiated on diuretics. On the echo, his LVEF was 50%, there were no segmental wall motion abnormalities, there were no significant valvular issues, and his RVSP was 37 mmHg. On his first night of hospitalization he did spike a temperature of 38.8 and was noted to be hypoxic by pulse ox (it was unclear if that measurement was accurate because his finger pulse oxes have been considerably lower than the ones checked on his ear lobe). He was also found to have a new leucocytosis with borderline low BPs. Blood cultures were obtained and the patient was started on IV antibiotics (vancomycin/zosyn). CTA of the chest ruled out a PE and a pneumonia. His UA was negative. Blood cultures have been negative to date. There were no recurrences of fever, and the leucocytosis has started to improve. While we are unable to find a definitive source of infection, his procalcitonin is, infact, elevated and has improved on above antibiotics therapy, encouraging a completion of at least a 5 day course. On 08/06 this hospitalization, the patient developed asymptomatic SVT (2 episodes of 12 beats each) for which he was started on metoprolol. On 08/07/22 while at rest the patient noted L-sided chest pain which was partially reproducible with palpation. While his EKGs did not show acute ishcemic changes, his high senstivity troponin I was [id number]->[id number]->1384->1090. The pain did not convincingly respond to nitroglycerin, but did respond to morphine. The patient was given a full dose asa, and cardiology consult was sought. The patient did verbalize interest in having aggressive care and a cardiac catheterization if necessary. No beds were available at either [facility] or [facility]. [facility] did accept the patient in transfer for further ischemic workup for his NSTEMI, including a possible cardiac catheterization, pending bed availability, and Dr Vallejo of cardiology recommended initiation of heparin gtt and addition of nitropaste. The patient still periodically reports chest pain at rest. He has not had arrhythmic events associated with these chest pains. No recurrences of SVT have been noted on tele since the two original episodes on 08/06/22. He has remained hemodynamically stable. The patient did have post-op hematuria with clots for which he was evaluated by urology and ended up having a cabrera catheter placed due to urinary retention developed in that setting. Hematuria has clinically resolved. After completion of his cardiac workup, the patient should undergo a voiding trial. Should he fail it, he should have a cabrera catheter re-inserted with outpatient follow-up with urology. The patient continues to await a bed at the [facility]. He is stable for transfer and agrees to transfer. Care for patient as well as completion of his discharge paperwork today took 60 minutes. Please, note, the list of medications below reflects outpatient prescriptions. Please, look at MAR for list of his current inpatient medications. Home Meds and New Rx's Prescriptions: No Action omeprazole 20 mg capsule,delayed release(DR/EC) 20 mg PO DAILY Qty: 60 6RF magnesium oxide 400 mg capsule 400 mg PO DAILY Qty: 30 6RF hydrochlorothiazide 50 mg tablet 50 mg PO DAILY Qty: 90 3RF triamcinolone acetonide 0.1 % ointment 1 applic topical BID Qty: 80 0RF Rx Instructions: to affected area on legs nystatin 100,000 unit/gram cream 1 applic topical TID Qty: 15 0RF aspirin [Ecotrin Low Strength] 81 MG tablet,delayed release (DR/EC) 1 tab PO DAILY atorvastatin [Lipitor] 40 mg tablet 40 mg PO QPM Qty: 90 4RF cilostazol 50 mg tablet 50 mg PO DAILY Qty: 90 3RF calcium carbonate-vitamin D3 1 EACH tablet 1 ea PO DAILY Centrum Silver 1 EACH tablet 1 tab PO DAILY acetaminophen [Acetaminophen Extra Strength] 500 mg Tablet 1,000 mg PO BID tamsulosin 0.4 mg capsule 0.4 mg PO HS Label Comments: TAKE 1 CAPSULE (0.4MG) BY MOUTH DAILY Discharge Instructions Instructions: Heart Attack (DC) Referrals: Erich Long NP [Primary Care Provider] - Yovani Hodge MD [ [facility] STAFF PHYSICIAN] - Activity:: Activity as Tolerated Equipment/Supplies:: No Equipment Needed Diet:: heart healthy Discharge Orders Discharge Orders: Discharge Order (Routine); Ordered 08/08/22 Ordered By: Thuy Roche DS: Summary Time Spent with Patient providing and/or coordinating discharge services: Greater than 30 minutes Status at Discharge Functional status at discharge: independent ambulation Overall status at discharge: patient is not back to baseline Mental Status: mental status grossly normal Speech and Movement: speech and movement normal Mood: congruent mood Affect: normal affect Exam Narrative Exam Narrative: General: Pleasant elderly male who is A&Ox3, in bed, on RA, not having dyspnea/tachypnea HEENT: EOMI, MMM Heart: RRR, no m/r/g, chest pain mildly but not entirely reproducible with palpation Lungs: crackles at B bases Abdomen: soft, nontender, nondistended Extremities: trace BLE edema, symmetric, healing excoriations on BLEs Psych Mental Status: mental status grossly normal Speech and Movement: speech and movement normal Mood: congruent mood Affect: normal affect DS: Data Vitals/I&O Vitals and I&O: Vital Signs Temperature 36.5 C 08/08/22 11:11 Temperature Source Tympanic 08/08/22 11:11 Pulse 65 08/08/22 11:11 Pulse Rhythm Irregular 08/08/22 10:05 Pulse 70 08/04/22 15:16 Respiratory Rate 18 08/08/22 11:11 Respiratory Effort 08/08/22 10:05 Respiratory Depth Normal 08/08/22 10:05 Respiratory Pattern Normal 08/08/22 10:05 Blood Pressure 105/63 08/08/22 11:11 Blood Pressure Mean 87 08/04/22 15:16 Blood Pressure Position Supine 08/04/22 13:16 Pulse Oximetry 97 08/08/22 11:11 Oxygen Delivery Method Nasal Cannula 08/08/22 11:11 Oxygen Flow Rate 2 08/08/22 11:11 Pain Level 0 08/08/22 11:11 Comment 08/07/22 11:18 Intake & Output 08/07/22 08/08/22 08/08/22 23:59 11:59 23:59 Intake Total 540 / 1470 168.4 / 503.775 335.375 / 503.775 Output Total 1250 / 2525 875 / 1725 850 / 1725 Balance -710 / -1055 -706.6 / -1221.225 -514.625 / -1221.225 Weight 75.4 kg Intake: IV 300 / 630 168.4 / 503.775 335.375 / 503.775 Oral 240 / 840 Output: Urine 1250 / 2525 875 / 1725 850 / 1725 Other: Urine Color Yellow Light Chantal Dark Chantal Urine Appearance Clear Clear Stool Size Large Stool Characteristics Soft Data Completed and Pending Completed studies during hospitalization [Text1]: CXR 08/04/22: Findings consistent with CHF. Echo 08/04/22; Normal left ventricular wall thickness and chamber size.? Estimated ejection fraction is 50%.? There are no segmental wall motion abnormalities Normal right ventricular size and systolic function Both atria are normal in size Aortic valve is sclerotic and trileaflet without stenosis or regurgitation Mildly thickened mitral leaflets, trace mitral regurgitation Normal tricuspid valve with trace regurgitation.? Estimated right ventricular systolic pressure is 37 mmHg CXR 08/04/22: No change in appearance of the chest compared to the prior examination.? CTA chest 08/05/22: No evidence of pulmonary embolism, thoracic aortic dissection or aneurysm.? Labs on day of discharge: Labs from last 24 hours 08/08/22 08/08/22 08/08/22 08:11 06:32 06:32 WBC RBC Hgb Hct MCV MCH MCHC RDW Plt Count MPV Immature Gran % Neutrophils % Lymphocytes % Monocytes % Eosinophils % Basophils % Nucleated RBC % Absolute Neutrophils Absolute Lymphocytes Absolute Monocytes Absolute Eosinophils Absolute Basophils APTT 53.7 H Sodium Potassium Chloride Carbon Dioxide Anion Gap BUN Creatinine Est GFR (CKD-EPI 2020) Glucose Calcium Magnesium Troponin I 1090 H* Urine Color Urine Clarity Urine pH Ur Specific [place] Urine Protein Urine Ketones Urine Blood Urine Nitrite Urine Bilirubin Urine Urobilinogen Ur Leukocyte Esterase Urine RBC Urine WBC Ur Epithelial Cells Urine Crystals Urine Bacteria Urine Casts Urine Mucus Ur Culture Indicated? Urine Glucose COVID-19 Source SARS-CoV-2 (PCR) Add-On Test Request DONE 08/08/22 08/08/22 08/08/22 06:32 06:32 00:55 WBC 14.35 H RBC 3.42 L Hgb 10.6 L Hct 30.8 L MCV 90 MCH 31.0 MCHC 34.4 RDW 14.6 H Plt Count 164 MPV 10.1 Immature Gran % 1.7 Neutrophils % 53.1 Lymphocytes % 28.1 Monocytes % 9.8 Eosinophils % 6.7 Basophils % 0.6 Nucleated RBC % 0.0 Absolute Neutrophils 7.62 H Absolute Lymphocytes 4.03 H Absolute Monocytes 1.41 H Absolute Eosinophils 0.96 H Absolute Basophils 0.09 APTT Sodium 134 L Potassium 4.2 Chloride 102 Carbon Dioxide 25.3 Anion Gap 6.7 BUN 31 H Creatinine 1.4 H Est GFR (CKD-EPI 2020) 49.56 Glucose 93 Calcium 8.5 Magnesium 1.9 Troponin I Urine Color Urine Clarity Urine pH Ur Specific [place] Urine Protein Urine Ketones Urine Blood Urine Nitrite Urine Bilirubin Urine Urobilinogen Ur Leukocyte Esterase Urine RBC Urine WBC Ur Epithelial Cells Urine Crystals Urine Bacteria Urine Casts Urine Mucus Ur Culture Indicated? Urine Glucose COVID-19 Source Nasal/Nares SARS-CoV-2 (PCR) Negative Add-On Test Request 08/08/22 08/07/22 08/07/22 00:22 22:34 19:39 WBC RBC Hgb Hct MCV MCH MCHC RDW Plt Count MPV Immature Gran % Neutrophils % Lymphocytes % Monocytes % Eosinophils % Basophils % Nucleated RBC % Absolute Neutrophils Absolute Lymphocytes Absolute Monocytes Absolute Eosinophils Absolute Basophils APTT 67.5 H Sodium Potassium Chloride Carbon Dioxide Anion Gap BUN Creatinine Est GFR (CKD-EPI 2020) Glucose Calcium Magnesium Troponin I 1384 H* 1659 H* Urine Color Urine Clarity Urine pH Ur Specific [place] Urine Protein Urine Ketones Urine Blood Urine Nitrite Urine Bilirubin Urine Urobilinogen Ur Leukocyte Esterase Urine RBC Urine WBC Ur Epithelial Cells Urine Crystals Urine Bacteria Urine Casts Urine Mucus Ur Culture Indicated? Urine Glucose COVID-19 Source SARS-CoV-2 (PCR) Add-On Test Request 08/07/22 08/07/22 18:05 17:50 WBC RBC Hgb Hct MCV MCH MCHC RDW Plt Count MPV Immature Gran % Neutrophils % Lymphocytes % Monocytes % Eosinophils % Basophils % Nucleated RBC % Absolute Neutrophils Absolute Lymphocytes Absolute Monocytes Absolute Eosinophils Absolute Basophils APTT 35.9 H Sodium Potassium Chloride Carbon Dioxide Anion Gap BUN Creatinine Est GFR (CKD-EPI 2020) Glucose Calcium Magnesium Troponin I Urine Color Yellow Urine Clarity Clear Urine pH 7.0 Ur Specific [place] 1.020 Urine Protein Negative Urine Ketones Negative Urine Blood Small H Urine Nitrite Negative Urine Bilirubin Negative Urine Urobilinogen 0.2 Ur Leukocyte Esterase Negative Urine RBC 10-20 H Urine WBC Negative Ur Epithelial Cells Rare Urine Crystals Negative Urine Bacteria Negative Urine Casts Negative Urine Mucus Negative Ur Culture Indicated? No Urine Glucose Negative COVID-19 Source SARS-CoV-2 (PCR) Add-On Test Request Preliminary micro results at discharge 08/04/22 21:34 Blood Culture - Preliminary Blood NO GROWTH 72 HOURS 08/04/22 20:24 Blood Culture - Preliminary Blood NO GROWTH 72 HOURS PFSH All Active Problems (Updated 08/08/22 @ 17:30 by Thuy Roche MD) FUO (fever of unknown origin) (Acute) Pulmonary hypertension (Chronic) Urinary retention (Acute) NSTEMI (non-ST elevated myocardial infarction) (Acute) Paroxysmal SVT (supraventricular tachycardia) (Acute) Discharge planning issues (Acute) DVT prophylaxis (Acute) Acute congestive heart failure (Acute) Anemia (Chronic) Angina at rest (Acute) Elevated troponin (Acute) Elev transaminase/LDH (Acute) Arterial occlusion, lower extremity (Acute) B/L Cardiac murmur (Acute) ? mild aortic stenosis Chest pain (Acute) Chest pain with abnormal EKG neg MPI 09/08, repeated 08/11 still neg. echo also neg. 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 Prostate nodule (Acute) Phimosis of penis (Acute) Medical History Aftercare for healing traumatic fracture of hip (08/25/12) LEFT HIP Arcus senilis Benign prostatic hyperplasia Right prostatic nodule with normal PSA Community acquired pneumonia Complete edentulism, unspecified History of bladder cancer History of fracture of hip History of tobacco use QUIT 2004 Hyperlipidemia Influenza Primary malignant neoplasm of bladder (04/06/13) Surgical History Colonoscopy - [facility] 2004 Fracture, Open Treatment (~08/2012) LEFT HIP History of esophagogastroduodenoscopy (EGD) (~09/2021) Hx of cystoscopy Hx of vein stripping pt.report vein in R leg removed and replaced with another Social History Smoking/Tobacco Use Status: Former Tobacco Use Quit Date: 10/26/00 Smoking risk assessment performed?: Yes Alcohol Intake: never Drug use: Never Substance use type: does not use Do you feel safe at home: Yes Additional Social history: unable to assess francine
[2022-08-08] MEDS: Atorvastatin 40 MG TAB PO (19:11)
[2022-08-08] MEDS: Tamsulosin 0.4 MG CAPCR PO (22:35)
[2022-08-09] VITALS (11 sets, daily range): BP systolic 119–145; BP diastolic 55–72; PULSE 60–89; RESP 14–24; TEMP 36.4–38; O2SAT 91–97
[2022-08-09] MEDS: nitroGLYcerin 2% 1 INCH/1 GM PKT TP ×4 (00:40→18:07)
[2022-08-09] MEDS: PIPERACILLIN/TAZO 3.375 GM in Normal Saline 50 ML IVPB ×4 (03:47→21:04)
[2022-08-09 06:13] LABS: HCT 30.1 % (40.0-50.0); HGB 10.3 g/dL (13.5-17.5); MCH 31.3 pg (27.0-33.0); MCHC 34.2 % (32.0-36.0); MCV 92 fL (80-95); MPV 10.1 fL (8.0-11.0); Platelet Count 159 10^3/uL (130-400); RBC 3.29 10^6/uL (4.36-5.78); RDW 15.1 % (11.8-14.1); RDW-SD 50.2 fL; WBC 11.76 10^3/uL (4.4-10.8)
[2022-08-09 06:29] LABS: PTT Activated 47.4 sec (21.0-27.5)
[2022-08-09] MEDS: Pantoprazole 40 MG VIAL IVP ×2 (08:03→21:03)
[2022-08-09] MEDS: Metoprolol 12.5 MG TAB PO ×2 (08:04→21:03)
[2022-08-09] MEDS: Normal Saline Flush 10 ML SYR IVP ×3 (08:04→21:03)
[2022-08-09] MEDS: Multivitamin w/Minerals TAB 1 TAB PO (08:04)
[2022-08-09] MEDS: Furosemide 20 MG/2 ML VIAL IVP ×2 (08:04→15:33)
[2022-08-09] MEDS: Calcium 600mg/Vit D 200U TAB 1 TAB PO ×2 (08:04→21:03)
[2022-08-09] MEDS: Cilostazol 100 MG TAB 50 MG PO (08:05)
[2022-08-09] MEDS: Aspirin E.C. 81 MG TABEC PO (08:05)
[2022-08-09] MEDS: Potassium Chloride 20 MEQ TABCR PO ×3 (08:05→21:03)
[2022-08-09] MEDS: Magnesium Oxide 400 MG TAB PO ×2 (08:05→21:04)
[2022-08-09 08:21] LABS: Anion Gap 11.5 mmol/L (3-11); BUN 31 mg/dL (7-18); CO2 23.5 mmol/L (21.0-32.0); CREATININE 1.2 mg/dL (0.70-1.30); Calcium 8.5 mg/dL (8.5-10.1); Calculated LDL 62 mg/dL (<100); Chloride 103 mmol/L (98-107); Cholesterol 104 mg/dL (<200); Estimated GFR 59.63 (mL/min/1.73m2); Glucose 80 mg/dL (74-106); HDL Cholesterol 29 mg/dL (40-60); Magnesium 2.2 mg/dL (1.8-2.4); Potassium 4.5 mmol/L (3.5-5.1); Sodium 138 mmol/L (136-145); Triglyceride 68 mg/dL (<150)
[2022-08-09 11:38] LABS: Vancomycin, Trough 21.2 ug/mL (10.0-20.0)
--- NOTE | 2022-08-09 12:34 | PGE_ITS ---
Date of Service Date of service: 08/09/22 Time of Service: 12:34 Assessment and Plan Assessment and plan (1) NSTEMI (non-ST elevated myocardial infarction): Status: Acute Assessment and plan: Continue asa, heparin gtt, nitro paste, statin, beta karrie, tele monitoring. Check troponin now given CP recurrence this am. Await a bed at the [facility]. (2) Angina at rest: Status: Acute Assessment and plan: No evidence of ischemia on EKG, but CP does seem to be responding to nitroglycerin. Continue to monitor on tele. As above. (3) Acute congestive heart failure: Status: Acute Assessment and plan: HFPEF, mild dynamic outflow tract obstruction, mild pulmonary hypertension. Conitnue diuresis as does appear fluid overloaded. (4) FUO (fever of unknown origin): Status: Acute Assessment and plan: Blood cultures remain negative, UA negative. ?source. Does have an elevated procalcitonin. Possible pulmonary source given hypoxia on night of admission at the same time as fever. Continue abx to finish a 5 day course. Continue to trend procalcitonin. (5) Hypoxia: Status: Resolved Assessment and plan: Post-op. CTA chest negative for acute PE and for pneumonia. Wean O2 as tolerated. Continue IV diuresis. Reportedly, low O2 sats were done on patient's fingers and ear probe results are consistently higher. (6) Paroxysmal SVT (supraventricular tachycardia): Status: Acute Assessment and plan: Conitnue low dose metoprolol and monitor BP. ?short burst of Afib ontele today - unclear because only 1 lead was on. (7) Pulmonary hypertension: Status: Chronic Assessment and plan: Continue diuresis. (8) Hypotension: Status: Resolved Assessment and plan: In setting of orthostatic hypotension, sepsis, diuresis, flomax, possible PE, urinary retention with difficulty passing urine and clots (?vagal component). Tolerating resumption of diuretics and addition of metoprolol. (9) Hematuria: Status: Resolved Assessment and plan: As above Urology consulted. Has a cabrera catheter now (for urinary retention) with virtually no blood in urine. Would need a voiding trial prior to discharge home. No evidence of bladder cancer per pathology. (10) Anemia: Status: Chronic Assessment and plan: Does have evidence of iron deficiency. s/p venofer. I suspect GI blood loss chronically; hematuria is also contributing. Continue to mointor H/H. (11) Chronic obstructive lung disease: Status: Chronic Assessment and plan: Not in an acute exacerbation at this time. No change in therapy. 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 Urology following (15) Hyperlipidemia: Assessment and plan: Continue atorvastatin (16) Hypokalemia: Status: Resolved Assessment and plan: Continue potassium repletion. (17) Hypomagnesemia: Status: Resolved Assessment and plan: Recheck again in am. Continue PO magnesium. (18) Hypocalcemia: Status: Ruled-out Assessment and plan: Recheck in am (19) Urinary retention: Status: Acute Assessment and plan: s/p cabrera VT prior to discharge home after his cardiology w/u is complete. Subjective Subjective Interval history since last seen: Mr Rodriguez had chest pain this morning at about 7 am that he did not report until hours later. It has resolved now. HE denies dizziness, chest pain now, shortness of breath, or nausea. He was placed on supplemental O2 overnight, requiring 1-2 L of O2 by NC. Lowest recorded O2 sat I can find in the computer are 91%. There is still no bed available at the [facility]. Exam Narrative Exam Narrative: General: Pleasant elderly male who is A&Ox3, Sitting up in a chair, looks comfortable, on 2L of O2 by NC. HEENT: EOMI, MMM Heart: RRR, no m/r/g Lungs: CTAB Abdomen: soft, nontender, nondistended Extremities: trace BLE edema, symmetric, healing excoriations on BLEs Objective Last Vital Signs Temp 37 C 08/09/22 11:12 Pulse 66 08/09/22 11:12 Resp 18 08/09/22 11:12 BP 119/67 08/09/22 11:12 Pulse Ox 95 08/09/22 11:12 Laboratory Results - last 24 hr 08/09/22 08/09/22 08/09/22 05:35 05:35 05:35 WBC 11.76 H RBC 3.29 L Hgb 10.3 L Hct 30.1 L MCV 92 MCH 31.3 MCHC 34.2 RDW 15.1 H Plt Count 159 MPV 10.1 APTT 47.4 H Sodium 138 Potassium 4.5 Chloride 103 Carbon Dioxide 23.5 Anion Gap 11.5 H BUN 31 H Creatinine 1.2 Est GFR (CKD-EPI 2020) 59.63 Glucose 80 Calcium 8.5 Magnesium 2.2 Triglycerides 68 Total Cholesterol 104 LDL Cholesterol, Calc 62 HDL Cholesterol 29 L Vancomycin Trough 08/09/22 11:05 WBC RBC Hgb Hct MCV MCH MCHC RDW Plt Count MPV APTT Sodium Potassium Chloride Carbon Dioxide Anion Gap BUN Creatinine Est GFR (CKD-EPI 2020) Glucose Calcium Magnesium Triglycerides Total Cholesterol LDL Cholesterol, Calc HDL Cholesterol Vancomycin Trough 21.2 H*
--- NOTE | 2022-08-09 12:43 | NUR.NOTE ---
Trough 21.2 Vancomycin has been re- timed. patient will not being transferred to [facility] today, as they are still boarding patients in the ER. Patient will be taken off NPO. Nursing Note:
[2022-08-09 13:19] LABS: Troponin I 494 ng/L (<or=60)
[2022-08-09] MEDS: VANCOMYCIN/WATER (PEG) 1 GM/200 ML BAG IVPB (16:18)
[2022-08-09] MEDS: Atorvastatin 40 MG TAB PO (21:03)
[2022-08-09] MEDS: Tamsulosin 0.4 MG CAPCR PO (21:04)
[2022-08-10] VITALS (9 sets, daily range): BP systolic 120–136; BP diastolic 49–58; PULSE 64–81; RESP 16–18; TEMP 36.2–37.9; O2SAT 90–96
[2022-08-10] MEDS: nitroGLYcerin 2% 1 INCH/1 GM PKT TP ×3 (01:12→12:28)
[2022-08-10] MEDS: PIPERACILLIN/TAZO 3.375 GM in Normal Saline 50 ML IVPB ×2 (04:06→10:26)
[2022-08-10 06:28] LABS: Abs Immature Grans 0.23 10^3/uL (0.0-0.06); Absolute Basophil Count 0.08 10^3/uL (0.0-0.2); Absolute Lymphocyte Count 3.42 10^3/uL (1.2-3.4); Absolute Monocyte Count 1.48 10^3/uL (0.1-0.8); Absolute Neutrophil Count 7.62 10^3/uL (1.2-6.7); Basophils % 0.6; Eosinophils % 7.2; HCT 29.2 % (40.0-50.0); HGB 9.8 g/dL (13.5-17.5); Immature Grans % 1.7; Lymphocytes % 24.7; MCH 30.9 pg (27.0-33.0); MCHC 33.6 % (32.0-36.0); MCV 92 fL (80-95); MPV 10.5 fL (8.0-11.0); Monocytes % 10.7; Neutrophils % 55.1; Platelet Count 168 10^3/uL (130-400); RBC 3.17 10^6/uL (4.36-5.78); RDW 15.5 % (11.8-14.1); RDW-SD 50.9 fL; WBC 13.83 10^3/uL (4.4-10.8)
[2022-08-10 06:40] LABS: PTT Activated 46.8 sec (21.0-27.5)
[2022-08-10 07:02] LABS: Anion Gap 8.2 mmol/L (3-11); BUN 35 mg/dL (7-18); CO2 24.8 mmol/L (21.0-32.0); CREATININE 1.3 mg/dL (0.70-1.30); Calcium 8.7 mg/dL (8.5-10.1); Chloride 106 mmol/L (98-107); Estimated GFR 54.17 (mL/min/1.73m2); Glucose 97 mg/dL (74-106); Magnesium 2.4 mg/dL (1.8-2.4); Potassium 4.2 mmol/L (3.5-5.1); Sodium 139 mmol/L (136-145)
[2022-08-10 07:15] LABS: Procalcitonin 0.1 ng/mL
[2022-08-10] MEDS: VANCOMYCIN/WATER (PEG) 1 GM/200 ML BAG IVPB (08:39)
[2022-08-10] MEDS: Furosemide 20 MG/2 ML VIAL IVP (08:50)
[2022-08-10] MEDS: Normal Saline Flush 10 ML SYR IVP ×2 (08:50→19:59)
[2022-08-10] MEDS: Pantoprazole 40 MG VIAL IVP ×2 (08:50→19:59)
[2022-08-10] MEDS: Multivitamin w/Minerals TAB 1 TAB PO (08:51)
[2022-08-10] MEDS: Potassium Chloride 20 MEQ TABCR PO ×3 (08:51→20:00)
[2022-08-10] MEDS: Calcium 600mg/Vit D 200U TAB 1 TAB PO ×2 (08:51→20:00)
[2022-08-10] MEDS: Metoprolol 12.5 MG TAB PO (08:51)
[2022-08-10] MEDS: Cilostazol 100 MG TAB 50 MG PO (08:51)
[2022-08-10] MEDS: Magnesium Oxide 400 MG TAB PO ×2 (08:51→20:00)
[2022-08-10] MEDS: Aspirin E.C. 81 MG TABEC PO (08:51)
--- NOTE | 2022-08-10 13:48 | W.PM.PROGNOT ---
Date of Service Date of service: 08/10/22 Time of Service: 13:49 Assessment and Plan Assessment and plan (1) NSTEMI (non-ST elevated myocardial infarction): Status: Acute Assessment and plan: Troponin peaked and is down declining. Spoke with intervention manager at [facility]. Plan is now to undergo NM MPI stress test and make decision to transfer or not after those findings. Stopped heparin and nitro paste. PRN SL nitro for CP. (2) Angina at rest: Status: Acute Assessment and plan: No evidence of ischemia on EKG, but CP does seem to be responding to nitroglycerin. Continue to monitor on tele. As above. (3) Acute congestive heart failure: Status: Acute Assessment and plan: HFPEF, mild dynamic outflow tract obstruction, mild pulmonary hypertension. Conitnue diuresis but will decrease to 20mg lasix po daily. (4) FUO (fever of unknown origin): Status: Acute Assessment and plan: Blood cultures remain negative, UA negative. ?source. Does have an elevated procalcitonin but now near normal. Possible pulmonary source given hypoxia on night of admission at the same time as fever. Continue abx to finish a minimum of a 5 day course. Changed to Augmentin. (5) Hypoxia: Status: Resolved Assessment and plan: Post-op. CTA chest negative for acute PE and for pneumonia. Wean O2 as tolerated. Continue IV diuresis. Reportedly, low O2 sats were done on patient's fingers and ear probe results are consistently higher. (6) Paroxysmal SVT (supraventricular tachycardia): Status: Acute Assessment and plan: Conitnue low dose metoprolol and monitor BP. However, holding metoprolol now in prep. for MPI stress test. ?short burst of Afib ontele today - unclear because only 1 lead was on. (7) Pulmonary hypertension: Status: Chronic Assessment and plan: Continue diuresis. (8) Hypotension: Status: Resolved Assessment and plan: In setting of orthostatic hypotension, diuresis, flomax, urinary retention with difficulty passing urine and clots (?vagal component). Tolerating resumption of diuretics and addition of metoprolol. (9) Hematuria: Status: Resolved Assessment and plan: As above Urology consulted. Has a cabrera catheter now (for urinary retention) with virtually no blood in urine. Would need a voiding trial prior to discharge home. No evidence of bladder cancer per pathology. (10) Anemia: Status: Chronic Assessment and plan: Does have evidence of iron deficiency. s/p venofer. I suspect GI blood loss chronically; hematuria is also contributing. Continue to mointor H/H. (11) Chronic obstructive lung disease: Status: Chronic Assessment and plan: Not in an acute exacerbation at this time. No change in therapy. 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 Urology following (15) Hyperlipidemia: Assessment and plan: Continue atorvastatin (16) Hypokalemia: Status: Resolved Assessment and plan: Continue potassium repletion. (17) Hypomagnesemia: Status: Resolved Assessment and plan: Now normal. Continue PO magnesium. (18) Hypocalcemia: Status: Ruled-out Assessment and plan: Now normalized. (19) Urinary retention: Status: Acute Assessment and plan: s/p cabrera VT prior to discharge home after his cardiology w/u is complete. Subjective Subjective Patient reports: no new complaints and afebrile; denies diarrhea, nausea, vomiting or shortness of breath Interval history since last seen: No current CP. No palpitations. Exam Narrative Exam Narrative: General: Pleasant elderly male. Sitting up in a chair, looks comfortable, on 2L of O2 by NC. HEENT: sclera clear. MMM Heart: RRR, no murmur Lungs: CTAB Abdomen: soft, nontender, nondistended Extremities: trace BLE edema, symmetric, healing excoriations on BLEs. No calf tenderness. Objective Last Vital Signs Temp 36.3 C L 08/10/22 12:02 Pulse 68 08/10/22 12:02 Resp 18 08/10/22 12:02 BP 131/58 L 08/10/22 12:02 Pulse Ox 90 L 08/10/22 12:02 Laboratory Results - last 24 hr 08/10/22 08/10/22 08/10/22 05:57 05:57 05:57 WBC 13.83 H RBC 3.17 L Hgb 9.8 L Hct 29.2 L MCV 92 MCH 30.9 MCHC 33.6 RDW 15.5 H Plt Count 168 MPV 10.5 Immature Gran % 1.7 Neutrophils % 55.1 Lymphocytes % 24.7 Monocytes % 10.7 Eosinophils % 7.2 Basophils % 0.6 Nucleated RBC % 0.0 Absolute Neutrophils 7.62 H Absolute Lymphocytes 3.42 H Absolute Monocytes 1.48 H Absolute Eosinophils 1.00 H Absolute Basophils 0.08 APTT 46.8 H Sodium 139 Potassium 4.2 Chloride 106 Carbon Dioxide 24.8 Anion Gap 8.2 BUN 35 H Creatinine 1.3 Est GFR (CKD-EPI 2020) 54.17 Glucose 97 Calcium 8.7 Magnesium 2.4 Procalcitonin 08/10/22 05:57 WBC RBC Hgb Hct MCV MCH MCHC RDW Plt Count MPV Immature Gran % Neutrophils % Lymphocytes % Monocytes % Eosinophils % Basophils % Nucleated RBC % Absolute Neutrophils Absolute Lymphocytes Absolute Monocytes Absolute Eosinophils Absolute Basophils APTT Sodium Potassium Chloride Carbon Dioxide Anion Gap BUN Creatinine Est GFR (CKD-EPI 2020) Glucose Calcium Magnesium Procalcitonin 0.1
[2022-08-10] MEDS: Amoxicillin 875/Clav. 125 TAB PO (19:59)
[2022-08-10] MEDS: Atorvastatin 40 MG TAB PO (19:59)
[2022-08-10] MEDS: Tamsulosin 0.4 MG CAPCR PO (21:41)
[2022-08-11] VITALS (9 sets, daily range): BP systolic 133–158; BP diastolic 64–73; PULSE 70–84; RESP 17–18; TEMP 36.7–38.1; O2SAT 92–98
--- NOTE | 2022-08-11 | DI.NM_ITS ---
APPROVED REPORT Exam: Pharmacologic Patient Location: In-Patient Room/Bed: 209 Stress Nurse: Brenda Ramsey RN Ordering Provider:JENIFER SANTANA, Contact Number: BMI: 25.52 Baseline Rhythm: Sinus Arrhythmia Indications: NSTEMI Medical History Medical History: Hx of tobacco use, HLD Cardiac Medications: Omeprazole, Magnesium oxide, Aspirin, Atorvastatin, Hydrochlorothiazide; Inpatie nt: Furosemide, Metoprolol tartrate, Nitro SL, Potassium Chloride, supplemental oxygen Allergies: No known drug allergies Cardiac Risk Factors: Hyperlipidemia, Smoking (former) Previous Cardiac Procedures: None Pretest Chest Pain Characteristics: No chest pain Exercise History: Sedentary Physical Disabilities: Difficulty walking Lung Sounds: Clear to auscultation Heart Sounds: Irregular Stress Test Details Test: Pharmacologic stress testing performed using 0.4 mg of regadenoson per 5 mL given IV over 10 s econds. Nuclear Acquisition: Rest Tc-99m/Stress Tc-99m 1 day Rest Isotope: Tc-99m Sestamibi. Dose: 10.0 Date: 08/11/2022 Injection Time: 1115 Stress Isotope: Tc-99m Sestamibi. Dose: 32.0 Date: 08/11/2022 Injection Time: 1325 HR Resting HR Supine: 79 bpm Max Heart Rate (APMHR): 136.540136 bpm Target HR (85% APMHR): 115.681650 bpm Max HR Achieved: 90 bpm % of APMHR: 66.18 Recovery HR: 80 bpm BP Resting BP Supine: 154/64 mmHg Max BP: 156/70 mmHg Recovery BP: 132/60 mmHg ECG Resting ECG: Sinus Arrhythmia Ectopy: None Stress ECG: Sinus Arrhythmia ST Change: No significant ST segment changes noted Arrhythmia: None Recovery ECG: Sinus Arrhythmia Recovery ST Change: No significant ST segment changes noted Recovery Arrhythmia: None Clinical Stress Symptoms: GI discomfort Rate Pressure Product: 27578 Stress ECG Conclusion 1. Resting electrocardiogram showed voltage for left ventricular hypertrophy, nondiagnostic inferior Q waves 2. Patient underwent pharmacologic stress with regadenoson 3. Peak heart rate achieved was 66% of maximal for age 4. Electrocardiographic portion of the test was nondiagnostic due to inadequate heart rate Stress Test Summary STAGE HR BP SpO2 Symptoms NOTES Supine 79 154/64 1 min post Lexiscan injection 86 156/70 3 min post Lexiscan injection 85 130/56 6 min post Lexiscan injection 80 132/60 MPI Conclusion Myocardial perfusion is abnormal with ischemia of the anterior and anteroapical segments EF 64% No segmental wall motion abnormalities identified Radiologist Interpretation Radiologist Interpretation by: Basim Mora MD Interpretation Date/Time: 08/11/2022 17:00:19
[2022-08-11 07:12] LABS: Abs Immature Grans 0.23 10^3/uL (0.0-0.06); Absolute Eosinophil Count 1.07 10^3/uL (0.0-0.7); Absolute Lymphocyte Count 3.33 10^3/uL (1.2-3.4); Absolute Monocyte Count 1.23 10^3/uL (0.1-0.8); Absolute Neutrophil Count 6.67 10^3/uL (1.2-6.7); Basophils % 0.6; Eosinophils % 8.5; HGB 10.3 g/dL (13.5-17.5); Immature Grans % 1.8; Lymphocytes % 26.4; MCHC 32.2 % (32.0-36.0); MCV 93 fL (80-95); MPV 10.5 fL (8.0-11.0); Monocytes % 9.8; Neutrophils % 52.9; Platelet Count 182 10^3/uL (130-400); RBC 3.43 10^6/uL (4.36-5.78); RDW 15.4 % (11.8-14.1); RDW-SD 51.5 fL
[2022-08-11 07:19] LABS: BUN 29 mg/dL (7-18); CREATININE 1.2 mg/dL (0.70-1.30); Calcium 8.9 mg/dL (8.5-10.1); Chloride 104 mmol/L (98-107); Estimated GFR 59.63 (mL/min/1.73m2); Glucose 97 mg/dL (74-106); Potassium 4.5 mmol/L (3.5-5.1); Sodium 136 mmol/L (136-145)
[2022-08-11 07:36] LABS: Absolute Basophil Count 0.08 10^3/uL (0.0-0.2)
[2022-08-11] MEDS: Aspirin E.C. 81 MG TABEC PO (08:47)
[2022-08-11] MEDS: Potassium Chloride 20 MEQ TABCR PO ×3 (08:47→20:17)
[2022-08-11] MEDS: Multivitamin w/Minerals TAB 1 TAB PO (08:47)
[2022-08-11] MEDS: Pantoprazole 40 MG VIAL IVP ×2 (08:47→20:18)
[2022-08-11] MEDS: Magnesium Oxide 400 MG TAB PO ×2 (08:47→20:17)
[2022-08-11] MEDS: Calcium 600mg/Vit D 200U TAB 1 TAB PO ×2 (08:47→20:16)
[2022-08-11] MEDS: Cilostazol 100 MG TAB 50 MG PO (08:47)
[2022-08-11] MEDS: Furosemide 20 MG TAB PO (08:47)
[2022-08-11] MEDS: Amoxicillin 875/Clav. 125 TAB PO ×2 (08:48→20:16)
[2022-08-11] MEDS: Normal Saline Flush 10 ML SYR IVP ×2 (08:49→20:18)
--- NOTE | 2022-08-11 11:09 | PDOC.CMPRO ---
- If Service Date Differs Date of service: 08/11/22 Time of Service: 11:09 Care Management Progress Note S/O: Alexander was sitting up in bed when CM met with him. He reported that he is feeling good today, and he is very happy with the care he is receiving at [facility]. Per MD, he had a positive stress test today, therefore he will continue to pursue transfer. Alexander is agreeable to this plan. CM will continue to follow. A: Alexander is an 82 year old male admitted to [facility] on 08/05/22 for chest pain. P: Anticipate Alexander will return home when medically cleared. His family will drive him home via private vehicle. He will follow up with his PCP and discharge plan of care. CM will continue to follow.
[2022-08-11] MEDS: Regadenoson 0.4 MG/5 ML SYR IVP (13:18)
--- NOTE | 2022-08-11 19:46 | W.PM.PROGNOT ---
Date of Service Date of service: 08/11/22 Time of Service: 19:47 Assessment and Plan Assessment and plan (1) NSTEMI (non-ST elevated myocardial infarction): Status: Acute Assessment and plan: Troponin peaked and is down declining. RESOLUTION MANAGER MPI stress test. MPI Conclusion Myocardial perfusion is abnormal with ischemia of the anterior and anteroapical segments EF 64% No segmental wall motion abnormalities identified Discussed with Cardiology at [facility]. No bed available (also no availability at [facility] or [facility]). Now on waiting list to transfer to [facility] for cardiac cath. Currently stable w/o angina, off heparin and and nitor drip / paste. Cont aspirin. Rest with transfers only. (2) Angina at rest: Status: Acute Assessment and plan: Continue to monitor on tele. As above. (3) Acute congestive heart failure: Status: Acute Assessment and plan: HFPEF, mild dynamic outflow tract obstruction, mild pulmonary hypertension. Conitnue diuresis with 20mg lasix po daily. (4) FUO (fever of unknown origin): Status: Acute Assessment and plan: Blood cultures remain negative, UA negative. ?source. Does have an elevated procalcitonin but now near normal. Possible pulmonary source given hypoxia on night of admission at the same time as fever. Continue abx to finish a minimum of a 5 day course. Changed to Augmentin. (5) Hypoxia: Status: Resolved Assessment and plan: Post-op. CTA chest negative for acute PE and for pneumonia. Wean O2 as tolerated. Continue IV diuresis. Reportedly, low O2 sats were done on patient's fingers and ear probe results are consistently higher. (6) Paroxysmal SVT (supraventricular tachycardia): Status: Acute Assessment and plan: Conitnue low dose metoprolol and monitor BP. ?short burst of Afib ontele today - unclear because only 1 lead was on. (7) Pulmonary hypertension: Status: Chronic Assessment and plan: Continue diuresis. (8) Hypotension: Status: Resolved Assessment and plan: In setting of orthostatic hypotension, diuresis, flomax, urinary retention with difficulty passing urine and clots (?vagal component). Tolerating resumption of diuretics and addition of metoprolol. (9) Hematuria: Status: Resolved Assessment and plan: As above Urology consulted. Has a cabrera catheter now (for urinary retention) with virtually no blood in urine. Urology ordered voiding trial. No evidence of bladder cancer per pathology. (10) Anemia: Status: Chronic Assessment and plan: Hgb has stabilized. Does have evidence of iron deficiency. s/p venofer. I suspect GI blood loss chronically; hematuria is also contributing. Continue to mointor H/H. (11) Chronic obstructive lung disease: Status: Chronic Assessment and plan: Not in an acute exacerbation at this time. No change in therapy. 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 Urology following (15) Hyperlipidemia: Assessment and plan: Continue atorvastatin (16) Hypokalemia: Status: Resolved Assessment and plan: Continue potassium repletion. (17) Hypomagnesemia: Status: Resolved Assessment and plan: Now normal. Continue PO magnesium. (18) Hypocalcemia: Status: Ruled-out Assessment and plan: Now normalized. (19) Urinary retention: Status: Acute Assessment and plan: s/p cabrera VT ordered. On flomax. Subjective Subjective Patient reports: no new complaints, tolerating a regular diet and afebrile; denies nausea or vomiting Interval history since last seen: No CP reported. Exam Narrative Exam Narrative: General: Pleasant elderly male. Sitting up in a chair, looks comfortable, on 2L of O2 by NC. Cooperative. HEENT: sclera clear. MMM Heart: RRR, no murmur Lungs: CTAB Abdomen: soft, nontender, nondistended Extremities: trace BLE edema, symmetric, healing excoriations on BLEs. No calf tenderness. Objective Last Vital Signs Temp 36.7 C 08/11/22 15:05 Pulse 74 08/11/22 15:05 Resp 18 08/11/22 15:05 BP 153/66 H 08/11/22 15:05 Pulse Ox 97 08/11/22 15:05 Laboratory Results - last 24 hr 08/11/22 08/11/22 06:28 06:28 WBC 12.60 H RBC 3.43 L Hgb 10.3 L Hct 32.0 L MCV 93 MCH 30.0 MCHC 32.2 RDW 15.4 H Plt Count 182 MPV 10.5 Immature Gran % 1.8 Neutrophils % 52.9 Lymphocytes % 26.4 Monocytes % 9.8 Eosinophils % 8.5 Basophils % 0.6 Nucleated RBC % 0.0 Absolute Neutrophils 6.67 Absolute Lymphocytes 3.33 Absolute Monocytes 1.23 H Absolute Eosinophils 1.07 H Absolute Basophils 0.08 Sodium 136 Potassium 4.5 Chloride 104 Carbon Dioxide 25.0 Anion Gap 7.0 BUN 29 H Creatinine 1.2 Est GFR (CKD-EPI 2020) 59.63 Glucose 97 Calcium 8.9
[2022-08-11] MEDS: Atorvastatin 40 MG TAB PO (20:17)
[2022-08-11] MEDS: Tamsulosin 0.4 MG CAPCR PO (22:14)
[2022-08-12] VITALS (12 sets, daily range): BP systolic 111–154; BP diastolic 53–74; PULSE 74–86; RESP 18; TEMP 36.6–37.8; O2SAT 84–98
[2022-08-12] MEDS: ACETAMINOPHEN 1,000 MG/100 ML BTL 400 MG IVPB (00:14)
[2022-08-12 00:28] LABS: Bilirubin Negative (Negative); Blood Moderate (Negative); Clarity Clear (Clear); Glucose Negative (Negative); Ketones Negative (Negative); Leukocyte Esterase Negative (Negative); Nitrite Negative (Negative); Urobilinogen 0.2 EU/dL (Up TO 0.2)
[2022-08-12 00:42] LABS: Bacteria Few HPF (Negative); Crystals Negative HPF (Negative); Epithelial Cells Rare HPF (Negative); Mucus Trace (Negative); RBC 20-50 HPF (0-2); WBC 0-2 HPF (0-5)
[2022-08-12 00:43] LABS: C & S Indicated? No
[2022-08-12 01:10] LABS: COVID-19 PCR Negative (Negative); Influenza A PCR Negative (Negative); Influenza B PCR Negative (Negative); RSV PCR Negative (Negative)
[2022-08-12 01:13] LABS: Source Nasopharynx
[2022-08-12 07:04] LABS: Abs Immature Grans 0.32 10^3/uL (0.0-0.06); Absolute Basophil Count 0.09 10^3/uL (0.0-0.2); Absolute Monocyte Count 1.13 10^3/uL (0.1-0.8); Basophils % 0.7; Eosinophils % 8.4; HCT 32.1 % (40.0-50.0); HGB 10.5 g/dL (13.5-17.5); Immature Grans % 2.5; Lymphocytes % 25.6; MCH 30.6 pg (27.0-33.0); MCHC 32.7 % (32.0-36.0); MCV 94 fL (80-95); MPV 10.4 fL (8.0-11.0); Monocytes % 8.9; Neutrophils % 53.9; Platelet Count 187 10^3/uL (130-400); RBC 3.43 10^6/uL (4.36-5.78); RDW 15.3 % (11.8-14.1); RDW-SD 51.7 fL; WBC 12.68 10^3/uL (4.4-10.8)
[2022-08-12 07:05] LABS: Absolute Eosinophil Count 1.07 10^3/uL (0.0-0.7); Absolute Lymphocyte Count 3.25 10^3/uL (1.2-3.4); Absolute Neutrophil Count 6.83 10^3/uL (1.2-6.7)
[2022-08-12 07:26] LABS: Troponin I 134 ng/L (<or=60)
--- NOTE | 2022-08-12 08:08 | PGE_ITS ---
Date of Service Date of service: 08/12/22 Time of Service: 08:09 Assessment and Plan Assessment and plan (1) Urinary retention: Status: Acute Assessment and plan: Toward the end of that week, when I thought he was going to another facility for heart catheterization, I thought the most logical recommendation was to leave the catheter in place until after the cardiac cath (knowing that he would need to lie flat for a while following that procedure). With the uncertainty regarding transfer and cardiac catheterization, we will go ahead and give him a voiding trial here knowing full well that we may need to replace the catheter. If he is unable to void on his own, we will replace the catheter and need to consider transurethral resection of the prostate. Unfortunately, he would not be able to have such a procedure until after his underlying cardiac conditions are addressed. Subjective Subjective Interval history since last seen: His urinary catheter remains, but his urine has cleared with no visible hematuria He still has some edema and ecchymosis of the penis and scrotum. At this point we are unsure about transfer to another facility for heart catheterization. Exam Narrative Exam Narrative: He appears comfortable and up at the bedside His vital signs are documented elsewhere There is some firmness and ecchymosis along the penile shaft, but the glans is soft. A Osuna catheter is in place and is draining clear urine He is awake and alert Objective Last Vital Signs Temp 37 C 08/12/22 07:40 Pulse 76 08/12/22 07:40 Resp 18 08/12/22 07:40 BP 124/67 08/12/22 07:40 Pulse Ox 95 08/12/22 07:40 Laboratory Results - last 24 hr 08/12/22 08/12/22 08/12/22 00:03 00:03 06:25 WBC RBC Hgb Hct MCV MCH MCHC RDW Plt Count MPV Immature Gran % Neutrophils % Lymphocytes % Monocytes % Eosinophils % Basophils % Nucleated RBC % Absolute Neutrophils Absolute Lymphocytes Absolute Monocytes Absolute Eosinophils Absolute Basophils Troponin I 134 H* Urine Color Yellow Urine Clarity Clear Urine pH 7.0 Ur Specific [place] 1.020 Urine Protein 30 H Urine Ketones Negative Urine Blood Moderate H Urine Nitrite Negative Urine Bilirubin Negative Urine Urobilinogen 0.2 Ur Leukocyte Esterase Negative Urine RBC 20-50 H Urine WBC 0-2 Ur Epithelial Cells Rare Urine Crystals Negative Urine Bacteria Few Urine Mucus Trace Ur Culture Indicated? No Urine Glucose Negative COVID-19 Source Nasopharynx SARS-CoV-2 (PCR) Negative Influenza Type A (PCR) Negative Influenza Type B (PCR) Negative RSV (PCR) Negative 08/12/22 06:25 WBC 12.68 H RBC 3.43 L Hgb 10.5 L Hct 32.1 L MCV 94 MCH 30.6 MCHC 32.7 RDW 15.3 H Plt Count 187 MPV 10.4 Immature Gran % 2.5 Neutrophils % 53.9 Lymphocytes % 25.6 Monocytes % 8.9 Eosinophils % 8.4 Basophils % 0.7 Nucleated RBC % 0.0 Absolute Neutrophils 6.83 H Absolute Lymphocytes 3.25 Absolute Monocytes 1.13 H Absolute Eosinophils 1.07 H Absolute Basophils 0.09 Troponin I Urine Color Urine Clarity Urine pH Ur Specific [place] Urine Protein Urine Ketones Urine Blood Urine Nitrite Urine Bilirubin Urine Urobilinogen Ur Leukocyte Esterase Urine RBC Urine WBC Ur Epithelial Cells Urine Crystals Urine Bacteria Urine Mucus Ur Culture Indicated? Urine Glucose COVID-19 Source SARS-CoV-2 (PCR) Influenza Type A (PCR) Influenza Type B (PCR) RSV (PCR)
[2022-08-12] MEDS: Pantoprazole 40 MG VIAL IVP ×2 (09:04→20:42)
[2022-08-12] MEDS: Calcium 600mg/Vit D 200U TAB 1 TAB PO ×2 (09:05→20:42)
[2022-08-12] MEDS: Cilostazol 100 MG TAB 50 MG PO (09:05)
[2022-08-12] MEDS: Furosemide 20 MG TAB PO (09:05)
[2022-08-12] MEDS: Amoxicillin 875/Clav. 125 TAB PO ×2 (09:06→20:42)
[2022-08-12] MEDS: Multivitamin w/Minerals TAB 1 TAB PO (09:06)
[2022-08-12] MEDS: Magnesium Oxide 400 MG TAB PO ×2 (09:06→20:42)
[2022-08-12] MEDS: Potassium Chloride 20 MEQ TABCR PO ×3 (09:06→20:42)
[2022-08-12] MEDS: Aspirin E.C. 81 MG TABEC PO (09:06)
[2022-08-12] MEDS: Normal Saline Flush 10 ML SYR IVP ×2 (09:06→20:42)
--- NOTE | 2022-08-12 14:11 | CMPROGNOTE_ITS ---
- If Service Date Differs Date of service: 08/12/22 Time of Service: 14:11 Care Management Progress Note S/O: Alexander remains closely monitored while awaiting transfer. Per report, he had a positive stress test yesterday, therefore his plan will be to transfer as soon as a bed becomes available. CM will continue to follow. A: Alexander is an 82 year old male admitted to [facility] on 08/05/22 for chest pain. P: Anticipate Alexander will return home when medically cleared. His family will drive him home via private vehicle. He will follow up with his PCP and discharge plan of care. CM will continue to follow.
[2022-08-12] MEDS: Isosorbide Mononitrate 30 MG TABCR PO (18:10)
[2022-08-12] MEDS: Atorvastatin 40 MG TAB PO (20:42)
[2022-08-12] MEDS: Metoprolol 12.5 MG TAB PO (20:42)
[2022-08-12] MEDS: Tamsulosin 0.4 MG CAPCR PO (21:29)
[2022-08-12] MEDS: Acetaminophen 500 MG TAB 1000 MG PO (22:50)
[2022-08-13] VITALS (9 sets, daily range): BP systolic 106–158; BP diastolic 56–77; PULSE 66–93; RESP 16–19; TEMP 36.2–36.8; O2SAT 92–95
[2022-08-13] MEDS: Isosorbide Mononitrate 30 MG TABCR PO (08:50)
[2022-08-13] MEDS: Cilostazol 100 MG TAB 50 MG PO (08:50)
[2022-08-13] MEDS: Aspirin E.C. 81 MG TABEC PO (08:50)
[2022-08-13] MEDS: Pantoprazole 40 MG VIAL IVP ×2 (08:50→20:26)
[2022-08-13] MEDS: Metoprolol 12.5 MG TAB PO ×2 (08:50→20:25)
[2022-08-13] MEDS: Normal Saline Flush 10 ML SYR IVP ×2 (08:50→20:26)
[2022-08-13] MEDS: Furosemide 20 MG TAB PO (08:50)
[2022-08-13] MEDS: Amoxicillin 875/Clav. 125 TAB PO (08:50)
[2022-08-13] MEDS: Magnesium Oxide 400 MG TAB PO ×2 (08:51→20:26)
[2022-08-13] MEDS: Potassium Chloride 20 MEQ TABCR PO ×2 (08:51→14:02)
[2022-08-13] MEDS: Multivitamin w/Minerals TAB 1 TAB PO (08:51)
[2022-08-13] MEDS: Calcium 600mg/Vit D 200U TAB 1 TAB PO ×2 (08:51→20:26)
--- NOTE | 2022-08-13 09:04 | PDOC.CMPRO ---
- If Service Date Differs Date of service: 08/13/22 Time of Service: 09:04 Care Management Progress Note S/O: Alexander was sitting up in his chair when CM met with him. He had family visiting in the room. CM discussed Alexander's plan, as he is still waiting for transfer. His family expressed frustration about how long it is taking, and stated that they would prefer that he go to [facility]. CM informed them that per MD, he would be calling facilities today to inquire about bed availability. While he waits for transfer, he is being closely monitored. Alexander is very pleased with the care he is receiving at [facility]. CM will continue to follow. A: Alexander is an 82 year old male admitted to [facility] on 08/05/22 for chest pain. P: Alexander has been accepted for transfer to [facility], awaiting a bed. Once a bed becomes available, he will transport via EMS. He will follow up with his PCP and discharge plan of care. CM will continue to follow.
--- NOTE | 2022-08-13 16:29 | W.PM.PROGNOT ---
Date of Service Date of service: 08/13/22 Time of Service: 16:29 Assessment and Plan Assessment and plan (1) NSTEMI (non-ST elevated myocardial infarction): Status: Acute Assessment and plan: Troponin peaked and is down declining. MPI Conclusion: Myocardial perfusion is abnormal with ischemia of the anterior and anteroapical segments EF 64% No segmental wall motion abnormalities identified Discussed with Cardiology at [facility]. No bed available (also no availability at [facility] or [facility]). Now on waiting list to transfer to [facility] for cardiac cath. Currently stable w/o angina, off heparin and and nitor drip / paste. Initiated Imdur 30mg daily. Cont aspirin. Rest with transfers only. (2) Angina at rest: Status: Acute Assessment and plan: Continue to monitor on tele. No CP today As above. (3) Acute congestive heart failure: Status: Acute Assessment and plan: HFPEF, mild dynamic outflow tract obstruction, mild pulmonary hypertension. Conitnue diuresis with 20mg lasix po daily. (4) FUO (fever of unknown origin): Status: Acute Assessment and plan: Blood cultures remain negative, UA negative. ?source. Did have an elevated procalcitonin but now near normal. Possible pulmonary source given hypoxia on night of admission at the same time as fever. Finished course of antibiotics. (5) Hypoxia: Status: Resolved Assessment and plan: Post-op. CTA chest negative for acute PE and for pneumonia. Wean O2 as tolerated. O2 sats now on 1L 93-94. Continue IV diuresis. Reportedly, low O2 sats were done on patient's fingers and ear probe results are consistently higher. (6) Paroxysmal SVT (supraventricular tachycardia): Status: Acute Assessment and plan: Conitnue low dose metoprolol and monitor BP. ?short burst of Afib on tele on a previous day. (7) Pulmonary hypertension: Status: Chronic Assessment and plan: Continue diuresis. (8) Hypotension: Status: Resolved Assessment and plan: In setting of orthostatic hypotension, diuresis, flomax, urinary retention with difficulty passing urine and clots (?vagal component). Tolerating resumption of diuretics and addition of metoprolol. (9) Hematuria: Status: Resolved Assessment and plan: As above Urology consulted. Has a cabrera catheter now (for urinary retention) with virtually no blood in urine. Urology ordered voiding trial. Today, required straight cath x 2. Cabrera placed. No evidence of bladder cancer per pathology. (10) Anemia: Status: Chronic Assessment and plan: Hgb has stabilized. Does have evidence of iron deficiency. s/p venofer. Suspected GI blood loss chronically; hematuria is also contributing. Continue to mointor H/H. (11) Chronic obstructive lung disease: Status: Chronic Assessment and plan: Not in an acute exacerbation at this time. No change in therapy. 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 Urology following (15) Hyperlipidemia: Assessment and plan: Continue atorvastatin (16) Hypokalemia: Status: Resolved Assessment and plan: K now normal at 4.5 Now on less lasix. Change K replacement from 20meq TID to BID. (17) Hypomagnesemia: Status: Resolved Assessment and plan: Now normal. Continue PO magnesium. (18) Hypocalcemia: Status: Ruled-out Assessment and plan: Now normalized. (19) Urinary retention: Status: Acute Assessment and plan: s/p cabrera VT ordered but required straight cath twice today. Replaced cabrera. On flomax. Subjective Subjective Patient reports: no new complaints and afebrile; denies nausea, vomiting or shortness of breath Exam Narrative Exam Narrative: General: Pleasant elderly male. Sitting up in a chair, looks comfortable, Cooperative. HEENT: sclera clear. MMM Heart: RRR, no murmur Lungs: CTAB Abdomen: soft, nontender, nondistended Extremities: trace BLE edema, symmetric, healing excoriations on BLEs. No calf tenderness. Objective Last Vital Signs Temp 36.2 C L 08/13/22 15:54 Pulse 85 08/13/22 16:01 Resp 16 08/13/22 15:54 BP 147/71 H 08/13/22 15:54 Pulse Ox 94 08/13/22 15:54
[2022-08-13] MEDS: Atorvastatin 40 MG TAB PO (20:26)
[2022-08-13] MEDS: Tamsulosin 0.4 MG CAPCR PO (22:05)
[2022-08-14] VITALS (12 sets, daily range): BP systolic 105–152; BP diastolic 48–75; PULSE 60–92; RESP 16–18; TEMP 35.9–36.8; O2SAT 92–96
[2022-08-14] MEDS: Pantoprazole 40 MG VIAL IVP ×2 (08:57→19:54)
[2022-08-14] MEDS: Cilostazol 100 MG TAB 50 MG PO (08:58)
[2022-08-14] MEDS: Metoprolol 12.5 MG TAB PO ×2 (08:58→19:54)
[2022-08-14] MEDS: Multivitamin w/Minerals TAB 1 TAB PO (08:59)
[2022-08-14] MEDS: Calcium 600mg/Vit D 200U TAB 1 TAB PO ×2 (08:59→19:54)
[2022-08-14] MEDS: Aspirin E.C. 81 MG TABEC PO (09:00)
[2022-08-14] MEDS: Acetaminophen 500 MG TAB 1000 MG PO (09:00)
[2022-08-14] MEDS: Potassium Chloride 20 MEQ TABCR PO ×2 (09:00→19:54)
[2022-08-14] MEDS: Magnesium Oxide 400 MG TAB PO ×2 (09:01→19:54)
[2022-08-14] MEDS: Furosemide 20 MG TAB PO (09:01)
[2022-08-14] MEDS: Docusate Sodium 100 MG CAP PO (09:01)
[2022-08-14] MEDS: Isosorbide Mononitrate 30 MG TABCR PO (09:01)
[2022-08-14] MEDS: Normal Saline Flush 10 ML SYR IVP ×2 (09:02→19:54)
--- NOTE | 2022-08-14 11:39 | W.PM.PROGNOT ---
Date of Service Date of service: 08/14/22 Time of Service: 11:39 Assessment and Plan Assessment and plan (1) Urinary retention: Status: Acute Assessment and plan: He is not currently a surgical candidate until his cardiac issues have been addressed. I believe the most practical approach would be to leave his catheter in place until after his cardiac work-up is completed. If the catheter needs to remain in place for longer than a month, it should be changed monthly. Preferably, he would be managed with clean intermittent catheterization. I do not believe the patient would be able to perform CIC on his own. Subjective Subjective Interval history since last seen: The patient was unable to void, so his catheter was replaced. We do not actually know his preprocedural voiding status. He was having dribbling of his urine which we assumed was from his significant phimosis. Some of his voiding difficulty may have been due to his prostate as well. He is still awaiting transfer to a larger facility so that he can have cardiac catheterization. Exam Narrative Exam Narrative: He appears comfortable fall. His urine is clear and the catheter drainage Objective Last Vital Signs Temp 35.9 C L 08/14/22 08:35 Pulse 73 08/14/22 08:35 Resp 18 08/14/22 08:35 BP 147/64 H 08/14/22 08:35 Pulse Ox 95 08/14/22 08:35
--- NOTE | 2022-08-14 12:25 | CMPROGNOTE_ITS ---
- If Service Date Differs Date of service: 08/14/22 Time of Service: 12:25 Care Management Progress Note S/O: Alexander was sitting up in his chair when CM met with him. He stated that he continues to do well, and is feeling good. He stated that he likes it here. He is expecting to transfer to a tertiary facility, awaiting bed availability. Unfortunately, all hospitals are full currently. MD continues to inquire with area tertiary facilities daily. CM will continue to follow. A: Alexander is an 82 year old male admitted to [facility] on 08/05/22 for chest pain. P: Alexander has been accepted for transfer to [facility], awaiting a bed. Once a bed becomes available, he will transport via EMS. He will follow up with his PCP and discharge plan of care. CM will continue to follow.
--- NOTE | 2022-08-14 15:35 | CHAPLAIN ---
Alexander is waiting to be transferred for cardiac care. He was sitting up in the chair when I visited. He was pleasant and engaged in a conversation. Alexander told me he is from [place]. He's in touch with his sister, who also lives in [place]. He's lived in the same place for 35 years and used to work at a [employer]. His nieces and nephews help out with transportation when it's needed. I will continue to visit.s
[2022-08-14] MEDS: Atorvastatin 40 MG TAB PO (19:54)
[2022-08-14] MEDS: Tamsulosin 0.4 MG CAPCR PO (22:21)
[2022-08-15] VITALS (14 sets, daily range): BP systolic 100–145; BP diastolic 48–75; PULSE 61–74; RESP 14–18; TEMP 35.8–36.9; O2SAT 85–99
--- NOTE | 2022-08-15 08:37 | CMPROGNOTE_ITS ---
- If Service Date Differs Date of service: 08/15/22 Time of Service: 08:37 Care Management Progress Note S/O: Per MD, [facility] is considering accepting Alexander in transfer, if he has chest pain with exertion. If he does not have chest pain, he will likely be scheduled for an outpatient cath. [facility] has no beds, and has asked that MD inquires at other hospitals. Alexander was lying in bed when CM met with him, and he reported that he was feeling ok today. He is agreeable to transfer to [facility], as it is closer than [facility]. His family would prefer [facility]. CM will continue to follow. A: Alexander is an 82 year old male admitted to [facility] on 08/05/22 for chest pain. P: Alexander has been accepted for transfer to [facility], awaiting a bed. Once a bed becomes available, he will transport via EMS. He will follow up with his PCP and discharge plan of care. CM will continue to follow.
--- NOTE | 2022-08-15 08:37 | PDOC.CMPRO ---
- If Service Date Differs Date of service: 08/15/22 Time of Service: 08:37 Care Management Progress Note S/O: Per MD, [facility] is considering accepting Alexander in transfer, if he has chest pain with exertion. If he does not have chest pain, he will likely be scheduled for an outpatient cath. [facility] has no beds, and has asked that MD inquires at other hospitals. Alexander was lying in bed when CM met with him, and he reported that he was feeling ok today. He is agreeable to transfer to [facility], as it is closer than [facility]. His family would prefer [facility]. CM will continue to follow. A: Alexander is an 82 year old male admitted to [facility] on 08/05/22 for chest pain. P: Alexander has been accepted for transfer to [facility], awaiting a bed. Once a bed becomes available, he will transport via EMS. He will follow up with his PCP and discharge plan of care. CM will continue to follow.
[2022-08-15] MEDS: Calcium 600mg/Vit D 200U TAB 1 TAB PO (09:07)
[2022-08-15] MEDS: Magnesium Oxide 400 MG TAB PO (09:07)
[2022-08-15] MEDS: Multivitamin w/Minerals TAB 1 TAB PO (09:07)
[2022-08-15] MEDS: Furosemide 20 MG TAB PO (09:07)
[2022-08-15] MEDS: Acetaminophen 500 MG TAB 1000 MG PO (09:07)
[2022-08-15] MEDS: Metoprolol 12.5 MG TAB PO (09:07)
[2022-08-15] MEDS: Potassium Chloride 20 MEQ TABCR PO (09:07)
[2022-08-15] MEDS: Isosorbide Mononitrate 30 MG TABCR PO ×2 (09:07→13:54)
[2022-08-15] MEDS: Pantoprazole 40 MG VIAL IVP (09:09)
[2022-08-15] MEDS: Normal Saline Flush 10 ML SYR IVP (09:10)
--- NOTE | 2022-08-15 09:40 | NUR.NOTE ---
MD in the room with patient to look at the dorsal side of his penis @ 09:40. MD stated that the bloody area is a hematoma. states that the blood is trying to move its way out and that the stitches are now dissolved and that's why it is able to move its way through that specific area of the penis. MD would like 4x4 gauze pads tucked around that dorsal area of the penis. No stitches needed, MD says it will heal together after the blood clots make their way out, and this happened because they were worried about the patients heart at the time of admission so he was on blood thinners, which was right after the circumcision was done. Patient uncomfortable while MD was removing (gently squeezing) out some clots. Patient cleaned up and now reports not much pain at all, tolerable.
--- NOTE | 2022-08-15 09:56 | W.PM.PROGNOT ---
Date of Service Date of service: 08/15/22 Time of Service: 09:56 Assessment and Plan Assessment and plan (1) Hematoma of penis: Status: Acute Assessment and plan: The clot is likely from his required anticoagulation immediately following the circumcision. I do not find any evidence of active bleeding. We generally recommend supportive care to allow the hematoma to reabsorb. We would expect the skin opening to close by secondary intent once the underlying pressure is relieved and not require additional procedures or suturing. I would suggest leaving his indwelling catheter in place until his cardiac situation has been addressed. He has already failed a voiding trial while on tamsulosin. If he were to require any type of surgical treatment for his prostate at our facility, he would need either a spinal or general anesthetic. Neither type of anesthesia would be appropriate unless or until his cardiac status is improved. Subjective Subjective Interval history since last seen: He has had some bleeding from the ventral aspect of his circumcision site. Exam Narrative Exam Narrative: The dorsal aspect of his circumcision is intact. Ventrally, there is a 2 cm opening with exposed clot. There is no active bleeding. I was able to express some of the clot out manually and applied a dry dressing to act as a wick to allow the remainder of the old hematoma to drain. Objective Last Vital Signs Temp 36.9 C 08/15/22 07:28 Pulse 68 08/15/22 07:28 Resp 18 08/15/22 07:28 BP 131/75 08/15/22 07:28 Pulse Ox 96 08/15/22 08:33
[2022-08-15] MEDS: Cilostazol 100 MG TAB 50 MG PO (10:16)
[2022-08-15] MEDS: Aspirin E.C. 81 MG TABEC PO (10:16)
[2022-08-15] MEDS: nitroGLYcerin 0.4 MG TAB SL (15:12)
--- NOTE | 2022-08-15 15:15 | RT.EKG_ITS ---
APPROVED REPORT Exam: Resting ECG Reason for Exam: Patient Location: I HR:61 bpm ECG Measurements Heart Rate 61 AXIS IN 183 P 20 QRSd 101 QRS 27 QT 388 T 58 QTc 391 Conclusion Sinus rhythm...normal P axis, V-rate 50- 99 Atrial premature complex...SV complex w/ short R-R interval
--- NOTE | 2022-08-15 16:03 | DSE_ITS ---
Date of service: 08/15/22 Time of Service: 16:03 DS: Diagnosis Discharge Diagnosis (1) Hematoma of penis: Status: Acute Asessment and Plan: Followed by Dr Hodge, Urology Developed after circumcision that was treatment for phimosis. Supportive care with expectation of closure by secondary intent of the area where the hematoma developed. (2) NSTEMI (non-ST elevated myocardial infarction): Status: Acute Asessment and Plan: Troponin peaked and then declined. + NM MPI stress test. Unstable angina. Completed 48H + heparin drip therapy. Now on Imdur, ASA, Atorvastatin and metoprolol. (3) Hematuria: Status: Resolved Asessment and Plan: Secondary to trauma from cystoscopy and anticoagulation. Resolved. (4) Ischemia of anterior segment: Status: Acute Asessment and Plan: Noted on NM MPI stress testing. Transferring to [facility] for cardiac catheterization. (5) Phimosis of penis: Status: Acute Asessment and Plan: S/P circumcision. Discharge Plan Disposition Patient Disposition: [facility] Condition: Stable Discharge Details Reason For Visit: Chest Pain Admit Date/Time: 08/05/22 11:02 Admit Provider: Phil Blanco Attending Provider: Phil Blanco Primary Care Provider: Erich Long Hospital Course Hospital Course: Mr Rodriguez is an 82 year old male with PMHx of PAD, non-oxygen dependent COPD, HTN, hyperlipidemia, GERD, who was admitted to [facility] hospitalist service on 08/04/22 for a type 2 NSTEMI felt to be due to acute CHF after developing chest pain upon waking up from anesthesia after cystoscopy for a possible bladder mass (pathology negative) and circumcision for phimosis. The patient had mildly elevated troponins (142->96->134->127) with chest pain resolving. He was initiated on diuretics. On the echo, his LVEF was 50%, there were no segmental wall motion abnormalities, there were no significant valvular issues, and his RVSP was 37 mmHg. On his first night of hospitalization he did spike a temperature of 38.8 and was noted to be hypoxic by pulse ox (it was unclear if that measurement was accurate because his finger pulse oxes have been considerably lower than the ones checked on his ear lobe). He was also found to have a new leucocytosis with borderline low BPs. Blood cultures were obtained and the patient was started on IV antibiotics (vancomycin/zosyn). CTA of the chest ruled out a PE and a pneumonia. His UA was negative. Blood cultures have been negative to date. There were no recurrences of fever, and the leucocytosis has started to improve. While we are unable to find a definitive source of infection, his procalcitonin is, infact, elevated and has improved on above antibiotics therapy, encouraging a completion of at least a 5 day course. On 08/06 this hospitalization, the patient developed asymptomatic SVT (2 episodes of 12 beats each) for which he was started on metoprolol. On 08/07/22 while at rest the patient noted L-sided chest pain which was partially reproducible with palpation. While his EKGs did not show acute ishcemic changes, his high senstivity troponin I was 1353->1659->1384->1090->494->134. The pain did not convincingly respond to nitroglycerin, but did respond to morphine. The patient was given a full dose asa, and cardiology consult was sought. The patient did verbalize interest in having aggressive care and a cardiac catheterization if necessary. No beds were available at either [facility] or [facility]. [facility] did accept the patient in transfer for further ischemic workup for his NSTEMI, including a possible cardiac catheterization, pending bed availability, and Dr Vallejo of cardiology recommended initiation of heparin gtt and addition of nitropaste. The patient still periodically reports chest pain at rest. He has not had arrhythmic events associated with these chest pains. No recurrences of SVT have been noted on tele since the two original episodes on 08/06/22. He has remained hemodynamically stable. The patient did have post-op hematuria with clots for which he was evaluated by urology and ended up having a cabrera catheter placed due to urinary retention developed in that setting. Hematuria has clinically resolved. After completion of his cardiac workup, the patient should undergo a voiding trial. Should he fail it, he should have a cabrera catheter re-inserted with outpatient follow-up with urology. Ultimately, a bed did not become available and cardiology at [facility] suggest an MPI stress test. This was performed and it indicated anterior ischemia. Imdur initiated at 30mg daily then 60mg daily. [facility] informed us that he was not likely going to be able to be transferred there d/t unavailability of a bed. Discussed his situation with [facility]. They suggested walking him to see if he had CP with exertion. It was subsequently found that he developed 5/10 chest pressure with ambulation. He also had a drop in his O2 saturation while on 1L from the low to mid 90's to 85%. He ambulated further with 3L O2 but did have a recurrence of 5/10 CP. His CP diminished after walking but was still perceptible. EKG showed no ST changes. Troponin was negative. Transportation arranged for transfer to [facility] for cardiac catheterization. Home Meds and New Rx's Prescriptions: No Action omeprazole 20 mg capsule,delayed release(DR/EC) 20 mg PO DAILY Qty: 60 6RF magnesium oxide 400 mg capsule 400 mg PO DAILY Qty: 30 6RF hydrochlorothiazide 50 mg tablet 50 mg PO DAILY Qty: 90 3RF triamcinolone acetonide 0.1 % ointment 1 applic topical BID Qty: 80 0RF Rx Instructions: to affected area on legs nystatin 100,000 unit/gram cream 1 applic topical TID Qty: 15 0RF aspirin [Ecotrin Low Strength] 81 MG tablet,delayed release (DR/EC) 1 tab PO DAILY atorvastatin [Lipitor] 40 mg tablet 40 mg PO QPM Qty: 90 4RF cilostazol 50 mg tablet 50 mg PO DAILY Qty: 90 3RF calcium carbonate-vitamin D3 1 EACH tablet 1 ea PO DAILY Centrum Silver 1 EACH tablet 1 tab PO DAILY acetaminophen [Acetaminophen Extra Strength] 500 mg Tablet 1,000 mg PO BID tamsulosin 0.4 mg capsule 0.4 mg PO HS Label Comments: TAKE 1 CAPSULE (0.4MG) BY MOUTH DAILY Discharge Instructions Instructions: Heart Attack (DC) Stand Alone Forms: Nursing Discharge Form Referrals: Erich Long NP [Primary Care Provider] - (Please call office when discharged from [facility] ) Yovani Hodge MD [ [facility] STAFF PHYSICIAN] - (Please call office when discharged from [facility]) Activity:: Activity as Tolerated Equipment/Supplies:: No Equipment Needed Diet:: heart healthy Discharge Orders Discharge Orders: Discharge Order (Routine); Ordered 08/08/22 Ordered By: Thuy Roche DS: Summary Time Spent with Patient providing and/or coordinating discharge services: Greater than 30 minutes Status at Discharge Functional status at discharge: uses cane/walker Overall status at discharge: patient is not back to baseline Mental Status: mental status grossly normal Speech and Movement: speech clear Mood: congruent mood Affect: normal affect Exam Narrative Exam Narrative: General: Pleasant elderly male. Sitting up in a chair, looks comfortable, Cooperative. HEENT: sclera clear. MMM Heart: RRR, no murmur Lungs: CTAB Abdomen: soft, nontender, nondistended Extremities: trace BLE edema, symmetric, healing excoriations on BLEs. No calf tenderness. Psych Mental Status: mental status grossly normal Speech and Movement: speech clear Mood: congruent mood Affect: normal affect DS: Data Vitals/I&O Vitals and I&O: Vital Signs Temperature 36.4 C L 08/15/22 15:18 Temperature Source Tympanic 08/15/22 15:18 Pulse 64 08/15/22 15:18 Pulse Rhythm Regular 08/15/22 15:14 Pulse 70 08/04/22 15:16 Respiratory Rate 14 08/15/22 15:18 Respiratory Effort Non-Labored 08/15/22 15:14 Respiratory Depth Normal 08/15/22 15:14 Respiratory Pattern Normal 08/15/22 07:15 Blood Pressure 105/48 L 08/15/22 15:18 Blood Pressure Mean 87 08/04/22 15:16 Blood Pressure Position Supine 08/04/22 13:16 Pulse Oximetry 98 08/15/22 15:35 Oxygen Delivery Method Nasal Cannula 08/15/22 15:35 Oxygen Flow Rate 1 08/15/22 15:35 Pain Level 6 08/15/22 15:12 Comment 08/15/22 13:48 Intake & Output 08/14/22 08/15/22 08/15/22 23:59 11:59 23:59 Intake Total 200 / 200 360 / 640 280 / 640 Output Total 1325 / 2125 875 / 1125 250 / 1125 Balance -1125 / -1925 -515 / -485 30 / -485 Weight 72.7 kg Intake: Oral 200 / 200 360 / 640 280 / 640 Output: Urine 1325 / 2125 875 / 1125 250 / 1125 Other: Urine Color Yellow Straw Yellow Urine Appearance Clear Clear Clear Comment Cabrera draining, clear yellow urine. Stool Size Moderate Stool Characteristics Soft Voiding Methods Indwelling Catheter Data Completed and Pending Labs on day of discharge: Labs from last 24 hours 08/15/22 15:40 Troponin I Pending Preliminary micro results at discharge 08/11/22 00:15 Blood Culture - Preliminary Blood NO GROWTH 72 HOURS 08/11/22 00:02 Blood Culture - Preliminary Blood NO GROWTH 72 HOURS PFS All Active Problems (Updated 08/15/22 @ 16:21 by Carlo Swain MD) Phimosis of penis (Acute) Ischemia of anterior segment (Acute) Hematoma of penis (Acute) FUO (fever of unknown origin) (Acute) Pulmonary hypertension (Chronic) Urinary retention (Acute) NSTEMI (non-ST elevated myocardial infarction) (Acute) Paroxysmal SVT (supraventricular tachycardia) (Acute) Acute congestive heart failure (Acute) Anemia (Chronic) Angina at rest (Acute) Elevated troponin (Acute) Elev transaminase/LDH (Acute) Arterial occlusion, lower extremity (Acute) B/L Cardiac murmur (Acute) ? mild aortic stenosis Chest pain (Acute) Chest pain with abnormal EKG neg MPI 09/08, repeated 08/11 still neg. echo also neg. 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 Prostate nodule (Acute) Phimosis of penis (Acute) Medical History Aftercare for healing traumatic fracture of hip (08/25/12) LEFT HIP Arcus senilis Benign prostatic hyperplasia Right prostatic nodule with normal PSA Community acquired pneumonia Complete edentulism, unspecified History of bladder cancer History of fracture of hip History of tobacco use QUIT 2004 Hyperlipidemia Influenza Primary malignant neoplasm of bladder (04/06/13) Surgical History Colonoscopy - MAC 2004 Fracture, Open Treatment (~08/2012) LEFT HIP History of esophagogastroduodenoscopy (EGD) (~09/2021) Hx of cystoscopy Hx of vein stripping pt.report vein in R leg removed and replaced with another Social History Smoking/Tobacco Use Status: Former Tobacco Use Quit Date: 10/26/00 Smoking risk assessment performed?: Yes Alcohol Intake: never Drug use: Never Substance use type: does not use Do you feel safe at home: Yes Additional Social history: unable to assess francine
[2022-08-15 16:10] LABS: Troponin I < 50 ng/L (<or=60)
--- NOTE | 2022-08-15 17:22 | NUR.NOTE ---
Nursing Note: [facility] [address] [place] [address]. Report was given to [facility] nurse over telephone. Patient is experiencing chest pain that was not relieved with nitro; MD notified. Patient is leaving via [facility].
== END 2022-08-15 17:36 | DRG 280 ==
LOC: ER 14:57 → MS 16:33
PROVIDERS: Family Medicine; General Practice; Internal Medicine; Admitting Provider Internal Medicine; Emergency Provider Emergency Medicine; PCP Nurse Practitioner Family; Visit Provider Internal Medicine
DX: I11.0 Hypertensive heart disease with heart failure (principal); I21.4 Non-ST elevation (NSTEMI) myocardial infarction; I50.33 Acute on chronic diastolic (congestive) heart failure; N99.840 Postprocedural hematoma of a genitourinary system organ or structure following a genitourinary system procedure; I47.1 Supraventricular tachycardia; D64.9 Anemia, unspecified; J44.9 Chronic obstructive pulmonary disease, unspecified; I73.9 Peripheral vascular disease, unspecified; K22.70 Barrett's esophagus without dysplasia; N40.0 Benign prostatic hyperplasia without lower urinary tract symptoms; E78.5 Hyperlipidemia, unspecified; E83.42 Hypomagnesemia; E83.51 Hypocalcemia; E87.6 Hypokalemia; R74.01 Elevation of levels of liver transaminase levels; I87.2 Venous insufficiency (chronic) (peripheral); Z87.891 Personal history of nicotine dependence; C67.9 Malignant neoplasm of bladder, unspecified; R09.02 Hypoxemia; I95.1 Orthostatic hypotension; R31.0 Gross hematuria; S30.21XA Contusion of penis, initial encounter; R33.9 Retention of urine, unspecified; R50.9 Fever, unspecified; I27.20 Pulmonary hypertension, unspecified
CPT/HCPCS: 36415; 52000; 54161; 71275; 78452; 80048; 80053; 80061; 83690; 84145; 85027; 87040; 87081; 87635; 87637; 93005; 93016; 93018; 93306; 97162; 97530; 99222; 99232; 99285; J1650; 71045; 80202; 81003; 81015; 82728; 83036; 83540; 83550; 83605; 83615; 83735; 83880; 84132; 84484; 85014; 85018; 85025; 85379; 85610; 85730; 93010; 93017; 94760; 99220; 99233; 99239; 99291; J0131; J0690; J1756; J1940; J1941; J2270; J2543; J2785; J3010; J3475; J3480; J3490

== ENCOUNTER 2022-09-04 18:30 | Outpatient (REF) | payer MEDICARE, MEDICAID, SELFPAY ==
[2022-09-04 19:44] LABS: ALT 65 U/L (16-63); AST 37 U/L (15-37); Albumin 3.2 g/dL (3.4-5.0); Alkaline Phosphatase 140 U/L (46-116); Anion Gap 6.4 mmol/L (3-11); BUN 39 mg/dL (7-18); Bilirubin, Total 0.5 mg/dL (0.2-1.0); CO2 29.6 mmol/L (21.0-32.0); CREATININE 0.9 mg/dL (0.70-1.30); Calcium 8.7 mg/dL (8.5-10.1); Chloride 100 mmol/L (98-107); Estimated GFR 84.22 (mL/min/1.73m2); Glucose 159 mg/dL (74-106); Potassium 4.2 mmol/L (3.5-5.1); Sodium 136 mmol/L (136-145); Total Protein 7.3 g/dL (6.4-8.2)
== END 2022-09-04 18:31 | disposition home or self-care (01) ==
LOC: LBN 18:30
PROVIDERS: PCP Family Medicine; Visit Provider Family Medicine
DX: I25.10 Atherosclerotic heart disease of native coronary artery without angina pectoris (principal)
CPT/HCPCS: 80053

== ENCOUNTER 2022-09-30 09:51 | Inpatient (IN) | payer MEDICARE, MEDICAID, SELFPAY ==
[2022-09-30] VITALS (28 sets, daily range): BP systolic 98–148; BP diastolic 41–85; PULSE 57–79; RESP 12–24; TEMP 36.2–36.7; O2SAT 83–96
--- NOTE | 2022-09-30 10:15 | RT.EKG_ITS ---
APPROVED REPORT Exam: Resting ECG Reason for Exam: fall Patient Location: E HR:68 bpm ECG Measurements Heart Rate 68 AXIS PA 139 P -31 QRSd 82 QRS -12 QT 397 T 135 QTc 422 Conclusion Sinus rhythm...normal P axis, V-rate 60- 99 Nonspecific T abnormalities, lateral leads...T <-0.10mV, I aVL V5 V6
--- NOTE | 2022-09-30 10:15 | DI.CT_ITS ---
Exam(s) CT HEAD CERVICAL SPINE WO EXAM: CT HEAD CERVICAL SPINE WO CLINICAL HISTORY: fall, slurred speech. TECHNIQUE: Imaging Protocol: Axial computed tomography images with coronal and sagittal reformatted images were created and reviewed COMPARISON: No exams were available for comparison FINDINGS: CT Head: Ventricles and Extra axial spaces: Normal in size and morphology for the patient's age. Hemorrhage: None. Cerebral parenchyma: No evidence of an acute territorial infarct. There are areas of decreased atten uation in the white matter consistent with small vessel ischemic disease. There is an old lacunar in farct in the right cerebellum. Midline shift: None. Brainstem/Cerebellum: Normal. Calvarium: Normal. Visualized Paranasal sinuses/Mastoids: There is opacification of a few ethmoid air cells. The remain ing visualized paranasal sinuses and mastoid air cells are clear. Soft Tissues: Unremarkable. CT Cervical Spine: Bones: No acute fracture or subluxation. Appropriate degenerative changes are seen in the cervical sp ine. There is straightening of the normal cervical lordosis. There is a right convex curvature of t he cervical spine. Soft Tissues: Unremarkable. Lung Apices: There is scarring seen in the lung apices. Emphysematous changes are also present. IMPRESSION: 1. No acute intracranial process. 2. No acute fracture or subluxation in the cervical spine. 3. Findings were discussed with the emergency department at 12:03 p.m. on 09/30/2022. RADIATION DOSE DELIVERED: 1,542.08mGy.cm Total DLP DATA REPOSITORY: All CT scans at this facility are submitted to the National Radiology Data Registry (NRDR) Dose Index Registry (DIR) with the [employer] ([employer]). RADIATION OPTIMIZATION: All CT scans at this facility use at least one of these dose optimization te chniques: automated exposure control; mA and/or kV adjustment per patient size (includes targeted exa ms where dose is matched to clinical indication); or iterative reconstruction.
--- NOTE | 2022-09-30 10:15 | DI.RAD_ITS ---
Exam(s) XR CHEST 2V PA LATERAL EXAM: XR CHEST 2V PA LATERAL CLINICAL HISTORY: fall, left sided pain TECHNIQUE: 2D digital imaging was performed of the chest. Two images were obtained. PA and lateral views were obtained. COMPARISON: CR,XR XR PORTABLE CHEST AP from 08/04/2022 FINDINGS: MEDIASTINUM: Normal. HEART: Normal. PULMONARY VASCULATURE: Normal. LUNGS: There is diffuse prominence of the interstitium. There are no focal consolidating infiltrates . PLEURAL SPACE: No pleural effusion or pneumothorax. BONE:Within normal limits for the patient's age. OTHER FINDINGS:Normal. IMPRESSION: Diffuse interstitial infiltrates. This may represent edema or pneumonia. Some element of chronic in terstitial disease cannot be excluded. No pleural effusion or pneumothorax. No displaced rib fractures are seen. If there is continued con cern for rib fracture, a CT scan or x-rays of the ribs may be obtained. DATA REPOSITORY: RADIATION DOSE DELIVERED:
--- NOTE | 2022-09-30 10:15 | DI.RAD_ITS ---
Exam(s) XR SHOULDER LT COMPLETE 2+V EXAM: XR SHOULDER LT COMPLETE 2+V CLINICAL HISTORY: pain s/p fall. TECHNIQUE: 2D digital imaging was performed of the left shoulder. Four images were obtained. AP, G rashey, and Y view views were obtained. COMPARISON: CR XR CHEST 2V PA LATERAL from 09/30/2022 FINDINGS: BONES: No acute fracture is present. No bony destructive lesion is seen. JOINTS: No dislocation present. There are degenerative changes seen at the acromioclavicular joint SOFT TISSUE: Normal. IMPRESSION: No acute fracture or dislocation. DATA REPOSITORY: RADIATION DOSE DELIVERED:
--- NOTE | 2022-09-30 10:28 | ED.GENADUL_ITS ---
Discharge Plan Disposition Patient Disposition: Admit to [facility] Condition: Stable Discharge Details Clinical Impression: Fall, Elevated troponin, COVID Admit Date/Time: 09/30/22 14:53 Admit Provider: Carlo Swain Attending Provider: Carlo Swain Primary Care Provider: Nay Boyce ED Provider: Tavon Guadarrama Discharge Data Discharge Date/Time-TO BE ENTERED AT DEPARTURE: 09/30/22 16:40 Medical Decision Making 82 yo male with hx of copd on home o2, cad, pvd, who had a DARLENE to the LAD in july after he had a circumcision and subsequently developed chest pain and an elevated troponin, comes in with ems after a fall. It is unclear when the patient last known well time was but ems states family states the last few days the patient has had intermittent slurring of his speech and they also reported a fever to 101. The patient states he tripped on part of a doorway this morning at some point but doesn't know the exact time. He arrives alert and is oriented to name, place, year and current time but is not able to provide much detail on his recent history. He has noticeable slurred speech but is able to be understood, and when asked when this started he shrugs his shoulder. He was complaining of left shoulder pain earlier but denies pain now unless he moves his left shoulder, he does have full rom of the shoulder, no palpable deformity, has mild anterior shoulder tenderness. He has no tenderness of the elbow, forearm, wrist or elbow. He has an nih of 1 due to dysarthria, no noticeable drift. He has diminished breath sounds at the bases bilaterally, no jvd, no calf tenderness, is noted to be 90% on 3L NC. No signs of head trauma, no midilne c spine tenderness. Unclear etiology for his fall and slurred speech, given lack of other symptoms feel cva less likely but will obtain ct head and c spine, is outside time window for intervention or lytics given unknown last known normal. Will also obtain cxr and left shoulder xray given the fall, pain and cough. Will evaluate for anemia, electrolyte abnormalities and obtain ua as well. labs show troponin of over 700, denies any chest pain now, does state 2-3 days ago did have some mild chest pain but none since, last troponin in [facility] was negative. His speech has improved but still has mild dysarthria, will see if mri can be obtained and [place] [facility] The sister who he lives with is at the bedside now and notes he has been intermittently disoriented and has trouble walking today, is not sure what time he feel earlier. CT head c/spine negative. mri shows no acute findings per dr. espinoza. Pt stable currently, discussed with [place] [facility] [place] given lack of chest pain do not feel heparin indicated at this time, recommend observing and obtaining echo. He did turning sander tender covid positive and xray shows edema vs infiltrates bilaterally. Discussed with hospitalist, will initiate remdesivir and dexamethasone and also give a dose of zosyn and admit for continued monitoring and care Differential Diagnosis Differential Diagnosis: pneumonia, cva, electrolyte abnormality Imaging Data Radiologic Study: Attestation: I personally reviewed and interpreted this imaging study as follows: Imaging: CT Scan Radiologist's impression: no acute findings Radiologic Study #2: Attestation: I personally reviewed and interpreted this imaging study as follows: Imaging: X-Ray My impression: no acute findings on shoulder xray Radiologic Study #3: Attestation: I personally reviewed and interpreted this imaging study as follows: Imaging: X-Ray Radiologist's impression: diffiuse infiltrates vs edema Lab Data Lab results reviewed: Yes I reviewed the patient's lab results. ECG Data Attestation: I personally reviewed and interpreted this ECG (s) as follows: Prior ECG tracings: available for review Interpretation: sinus rhyth, rate of 68, pr 138, no acute stemi Sign Out No HPI General Mode of arrival: EMS . Date/Time Provider Initiated Documentation: 09/30/22 10:04 . Information obtained by: patient, family and EMS . History of Present Illness 82 year old M presents to the emergency department with the chief complaint of fall, described as moderate, Patient started experiencing this unknown and it has been constant. No relieving factors improve symptom(s), No exacerbating factors reported . Patient notes cough. Patient did receive the following treatments prior to arrival, none Related Data Home Medications Medication Instructions Recorded Confirmed aspirin 81 mg tablet,delayed 1 tab PO DAILY 02/15/13 09/30/22 release (Ecotrin Low Strength) calcium carbonate 600 mg-vitamin 1 tab PO DAILY 04/12/13 09/30/22 D3 5 mcg (200 unit) tablet lvkpetiz-jcg-wcemt acid 0.4 1 tab PO DAILY 08/18/14 09/30/22 mg-lycopene 300 mcg-lutein 250 mcg tablet (Centrum Silver) magnesium oxide 400 mg PO DAILY #30 caps 07/28/18 09/30/22 acetaminophen 500 mg tablet 1,000 mg PO BID 08/04/22 09/30/22 (Acetaminophen Extra Strength) PULSE OXIMETER #1 ea 08/29/22 08/29/22 clopidogrel 75 mg tablet 75 mg PO DAILY #30 tabs 08/29/22 09/30/22 famotidine 20 mg tablet 20 mg PO BID #60 tabs 08/29/22 09/30/22 ipratropium bromide 42 mcg (0.06 2 spray intranasal TID #15 mL 08/29/22 09/30/22 %) nasal spray metoprolol succinate 100 mg 100 mg PO DAILY #30 tabs 08/29/22 09/30/22 tablet,extended release 24 hr nitroglycerin 0.4 mg sublingual 0.4 mg sublingual Q5M PRN chest 08/29/22 09/30/22 tablet pain rosuvastatin 40 mg tablet 40 mg PO HS #30 tabs 08/29/22 09/30/22 tamsulosin 0.4 mg capsule 0.4 mg PO HS #30 caps 08/29/22 09/30/22 albuterol sulfate 90 mcg/actuation 2 inh inhalation Q4H PRN 09/30/22 09/30/22 aerosol inhaler hydrochlorothiazide 25 mg tablet 12.5 mg PO DAILY 09/30/22 09/30/22 umeclidinium 62.5 mcg-vilanterol 1 inh inhalation DAILY 09/30/22 09/30/22 25 mcg/actuation powdr for inhalation (Anoro Ellipta) Previous Rx's Medication Instructions Recorded magnesium oxide 400 mg PO DAILY #30 caps 07/28/18 PULSE OXIMETER #1 ea 08/29/22 clopidogrel 75 mg tablet 75 mg PO DAILY #30 tabs 08/29/22 famotidine 20 mg tablet 20 mg PO BID #60 tabs 08/29/22 ipratropium bromide 42 mcg (0.06 2 spray intranasal TID #15 mL 08/29/22 %) nasal spray metoprolol succinate 100 mg 100 mg PO DAILY #30 tabs 11/04/22 tablet,extended release 24 hr rosuvastatin 40 mg tablet 40 mg PO HS #30 tabs 08/29/22 tamsulosin 0.4 mg capsule 0.4 mg PO HS #30 caps 08/29/22 Allergies Allergy/AdvReac Type Severity Reaction Status Date / Time No Known Allergies Allergy Verified 08/29/22 08:32 General Stated Complaint: GenMedical BAIRON: 3 Review of Systems All systems reviewed & are unremarkable except as noted in HPI and below Constitutional Constitutional: Denies chills Eyes Eyes: Denies loss of vision Cardiovascular Cardiovascular: Denies chest pain and Denies dyspnea Respiratory Respiratory: Denies cough and Denies dyspnea Gastrointestinal Gastrointestinal: Denies abdominal pain, Denies nausea and Denies vomiting Genitourinary Genitourinary: Denies dysuria Neurologic Neurologic: Denies loss of vision PENDING SALE TO [facility] All Active Problems (Updated 10/01/22 @ 14:57 by Carlo Swain MD) Discharge planning issues (Acute) Pneumonia due to COVID-19 virus (Acute) Chronic obstructive lung disease (Chronic) Diastasis recti (Acute) Hypertension (Acute) Stress test, 1999, with hypertensive response Peripheral vascular disease (Chronic) Being actively followed by [facility] [place] Umbilical hernia (Acute) Inguinal adenopathy (Acute) Abnormal CT scan, gastrointestinal tract (Acute) Esophagitis (Acute ~09/2021) Esophageal reflux (Chronic ~09/2021) Sanchez's esophagus (Chronic ~09/2021) Venous insufficiency of right lower extremity (Acute) 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 CAD (coronary artery disease), [place] coronary artery (Acute) Pulmonary interstitial fibrosis (Acute ~07/2022) Seen on CT at [facility] [place]; on prednisone. Fall (Acute) Elevated troponin (Acute) COVID (Acute) Medical History Aftercare for healing traumatic fracture of hip (08/25/12) LEFT HIP Arcus senilis Benign prostatic hyperplasia Right prostatic nodule with normal PSA Community acquired pneumonia Complete edentulism, unspecified History of bladder cancer History of fracture of hip History of tobacco use QUIT 2004 Hyperlipidemia Phimosis of penis Primary malignant neoplasm of bladder (04/06/13) Surgical History Colonoscopy - MAC 2004 Fracture, Open Treatment (~08/2012) LEFT HIP History of esophagogastroduodenoscopy (EGD) (~09/2021) Hx of cystoscopy Hx of vein stripping pt.report vein in R leg removed and replaced with another S/P routine circumcision (~07/2022) Social History Smoking/Tobacco Use Status: Former Tobacco Use Quit Date: 10/26/00 Smoking risk assessment performed?: Yes Alcohol Intake: never Drug use: Never Substance use type: does not use Do you feel safe at home: Yes Additional Social history: unable to assess privatley Exam Const General: no acute distress Orientation: alert HENMT Head: normal to inspection Ears: external ears normal General nose exam: external nose normal Mouth: moist mucous membranes Eyes General: appearance normal, both eyes and all related structures Neck Neck: normal visual inspection Resp Effort & Inspection: normal respiratory effort and able to speak in complete sentences Cardio Rate: regular rate Skin General skin exam: no rashes or lesions noted Neuro General: patient alert Extrem General: full ROM and capillary refill normal Psych Mental Status: mental status grossly normal Course Vital Signs Vital signs: Vital Signs Temperature 36.7 C 09/30/22 09:51 Pulse 77 09/30/22 09:51 Respiratory Rate 24 09/30/22 09:51 Blood Pressure 104/57 L 09/30/22 09:51 Pulse Oximetry 91 L 09/30/22 09:51 Temperature 36.7 C 09/30/22 09:51 Temperature Source Tympanic 09/30/22 09:51 Pulse 77 09/30/22 09:51 Respiratory Rate 16 09/30/22 10:02 Respiratory Effort 09/30/22 10:02 Respiratory Depth Normal 09/30/22 10:02 Respiratory Pattern Normal 09/30/22 10:02 Blood Pressure 104/57 L 09/30/22 09:51 Blood Pressure Position Supine 09/30/22 09:51 Pulse Oximetry 91 L 09/30/22 09:51 Oxygen Delivery Method Nasal Cannula 09/30/22 09:51 Oxygen Flow Rate 3 09/30/22 09:51 Pain Level 2 09/30/22 09:51 Lab/Test Results Lab/Test Results: 09/30/22 09:42 Blood Blood Culture - Pending 09/30/22 09:42 Blood Blood Culture - Pending
[2022-09-30 11:03] LABS: Abs Immature Grans 0.09 10^3/uL (0.0-0.06); Absolute Eosinophil Count 0.04 10^3/uL (0.0-0.7); Absolute Lymphocyte Count 1.82 10^3/uL (1.2-3.4); Absolute Monocyte Count 0.98 10^3/uL (0.1-0.8); Basophils % 0.3; Eosinophils % 0.3; HCT 35.5 % (40.0-50.0); HGB 11.6 g/dL (13.5-17.5); Immature Grans % 0.8; Lymphocytes % 15.3; MCH 29.7 pg (27.0-33.0); MCHC 32.7 % (32.0-36.0); MCV 91 fL (80-95); MPV 9.9 fL (8.0-11.0); Monocytes % 8.2; Neutrophils % 75.1; Platelet Count 187 10^3/uL (130-400); RDW 15.4 % (11.8-14.1); RDW-SD 51.7 fL; WBC 11.91 10^3/uL (4.4-10.8); pCO2 (Venous) 37 mmHg (41-51); pH (Venous) 7.43 (7.31-7.41); pO2 (Venous) 51 mmHg
[2022-09-30 11:04] LABS: BE (Venous) 0 mmol/L (-2-3); HCO3 (Venous) 25 mmol/L (23-28); O2 Sat (Venous) 87 %; TCO2 (Venous) 26 mmol/l (24-29)
[2022-09-30 11:06] LABS: Absolute Basophil Count 0.04 10^3/uL (0.0-0.2); Absolute Neutrophil Count 8.94 10^3/uL (1.2-6.7)
[2022-09-30 11:16] LABS: INR 1.1 (0.9-1.1); PTT Activated 30.7 sec (21.0-27.5); Prothrombin Time 11.1 sec (9.3-11.0)
[2022-09-30] MEDS: Lidocaine 2% Jelly 6 ML SYR (11:23)
[2022-09-30 11:29] LABS: ALT 34 U/L (16-63); AST 37 U/L (15-37); Albumin 2.8 g/dL (3.4-5.0); Alkaline Phosphatase 106 U/L (46-116); Anion Gap 8.3 mmol/L (3-11); BUN 32 mg/dL (7-18); Bilirubin, Total 0.7 mg/dL (0.2-1.0); CO2 27.7 mmol/L (21.0-32.0); CREATININE 1.3 mg/dL (0.70-1.30); Calcium 8.3 mg/dL (8.5-10.1); Chloride 102 mmol/L (98-107); Estimated GFR 54.17 (mL/min/1.73m2); Glucose 95 mg/dL (74-106); Potassium 3.3 mmol/L (3.5-5.1); Sodium 138 mmol/L (136-145); TSH (W/Ref FT4) 1.44 uIU/mL (0.36-3.74); Total Protein 6.9 g/dL (6.4-8.2)
[2022-09-30 11:30] LABS: ETHANOL BLOOD < 3.0 mg/dL (<10)
[2022-09-30 11:32] LABS: Troponin I 792 ng/L (<or=60)
[2022-09-30 11:44] LABS: Procalcitonin 0.4 ng/mL
--- NOTE | 2022-09-30 12:45 | DI.MRI_ITS ---
Exam(s) MR BRAIN WO EXAM: MR BRAIN WO CLINICAL HISTORY: slurred speech TECHNIQUE: Multiplanar multisequence MRI of the brain was performed. COMPARISON: CT CT HEAD CERVICAL SPINE WO from 09/30/2022 FINDINGS: VENTRICLES AND EXTRA AXIAL SPACES: Normal in size and morphology for the patient's age. MIDLINE SHIFT: None. CEREBRAL PARENCHYMA: No focus of restricted diffusion to suggest acute infarct. No space-occupying le jaye identified. There are areas of hyperintense signal seen in the white matter on the FLAIR and T2 weighted images most consistent with small vessel ischemic disease. HEMORRHAGE: None. BRAINSTEM/CEREBELLUM: Normal. CALVARIUM: Normal. VISUALIZED PARANASAL SINUSES/MASTOIDS:There is fluid seen in the mastoid air cells, left greater than right. The remaining visualized paranasal sinuses are clear. EYAK OF GAMINO: Normal flow void. PITUITARY GLAND: Unremarkable. OTHER FINDINGS: There is artifact from a metallic subcutaneous foreign body lateral to the left sphen oid bone. IMPRESSION: 1. No acute infarct. 2. Age-appropriate cerebral atrophy and small vessel ischemic disease. 3. Findings were discussed with Dr. Guadarrama at 2:35 p.m. on 09/30/2022. DATA REPOSITORY:
[2022-09-30 12:51] LABS: Bilirubin Negative (Negative); Blood Moderate (Negative); Clarity Clear (Clear); Glucose Negative (Negative); Ketones Negative (Negative); Leukocyte Esterase Small (Negative); Nitrite Negative (Negative); Specific Gravity 1.015 (1.005-1.025); Urobilinogen 0.2 EU/dL (Up TO 0.2)
[2022-09-30 12:56] LABS: Bacteria Few HPF (Negative); Crystals Negative HPF (Negative); Epithelial Cells Few HPF (Negative); Mucus Negative (Negative)
[2022-09-30 12:57] LABS: C & S Indicated? C&S Done As Ordered; Casts Negative LPF (Negative)
[2022-09-30 13:32] LABS: Influenza A PCR Negative (Negative); Influenza B PCR Negative (Negative); RSV PCR Negative (Negative)
[2022-09-30 13:34] LABS: COVID-19 PCR Positive (Negative)
[2022-09-30 13:40] LABS: Troponin I 626 ng/L (<or=60)
[2022-09-30 14:34] LABS: NT-proBNP 949 pg/mL (<300)
[2022-09-30] MEDS: Dexamethasone 10 MG/ML VIAL 6 MG IVP (15:45)
[2022-09-30] MEDS: PIPERACILLIN/TAZO 4.5 GM in Normal Saline 100 ML IVPB ×2 (15:46→21:48)
[2022-09-30] MEDS: Normal Saline Flush 10 ML SYR IVP ×2 (17:31→21:47)
[2022-09-30] MEDS: Heparin 5,000 UNITS/ML VIAL 5000 UNITS SC (17:32)
[2022-09-30] MEDS: REMDESIVIR 200 MG in Normal Saline 250 ML 250 MG IVPB (17:34)
--- NOTE | 2022-09-30 17:51 | HPE_ITS ---
Date of service: 09/30/22 Time of Service: 17:52 Assessment and Plan Assessment and plan (1) Chronic obstructive lung disease: Status: Chronic Assessment and plan: He was recently started on Stiolto; will make therapeutic subst with tiotropium Br/Olodaterol PRN albuterol Currently on 4L supplemental O2 per MI. Nonlabored WOB (2) Hypertension: Status: Acute Assessment and plan: Cont HCTZ, metoprolol Monitor. Qualifiers: Hypertension type: primary hypertension Qualified Code(s): I10 - Essential (primary) hypertension (3) CAD (coronary artery disease), kake coronary artery: Status: Acute Assessment and plan: Current NSTEMI with declining troponin. No EKG changes or CP. Previous NSTEMI and sent from [facility] to [facility] on 08/15/22 where he underwent catheterization and received a DARLENE to LAD. This occurred after a circumcision undertaken because of phimosis. Cont ASA, Plavix, BB, statin No current CP. (4) Pulmonary interstitial fibrosis: Status: Acute Assessment and plan: Has been on a prednisone taper. Now, for COVID tx, on dexamethasone. Will need to verify if he was still tapering prednisone or is he off it or on a continuous dose. (5) Hyperlipidemia: Assessment and plan: Cont rosuvastatin. (6) Pneumonia due to COVID-19 virus: Status: Acute Assessment and plan: Has chronic resp failure; on home O2 Currently stable on 4L supplemental O2. Cont 3 day course of remdesivir and dexamethasone. History of Present Illness History of Present Illness Chief Complaint: Fall, cough Narrative: This is an 82 yo male with a PMH of CAD, PVD, COPD on home O2 who presented to the ED after a fall due to tripping over a doorway threshhold. This occured the day of admission. His family reports he has seemed weak with intermittent mild slurring of his speech. He endorses a recent cough with white sputum. He had complained of left shoulder pain after the fall but had no pain upon presentation to the ED. He was found to be Covid-19 positive. His procalcitonin was 0.4. WBC count 11.91. Remdesivir 200mg IV, dexamethasone 6 mg IV and Zosyn 4.5 IV administered in the ED. Xray of chest showed diffuse infiltrates vs edema. EKG with NSR, rate of 68, FL 138. No ST changes. CT head and c-spine w/o acute findings. MRI head w/o acute findings. Troponin: 792>626. [facility] cardiology contacted by ED physician: given lack of chest pain do not feel heparin indicated at this time, recommend observing and obtaining echo. Review of Systems All systems reviewed & are unremarkable except as noted in HPI and below PFSH All Active Problems (Updated 09/30/22 @ 18:05 by Carlo Swain MD) Pneumonia due to COVID-19 virus (Acute) Chronic obstructive lung disease (Chronic) Diastasis recti (Acute) Hypertension (Acute) Stress test, 1999, with hypertensive response Peripheral vascular disease (Chronic) Being actively followed by [facility] Umbilical hernia (Acute) Inguinal adenopathy (Acute) Abnormal CT scan, gastrointestinal tract (Acute) Esophagitis (Acute ~09/2021) Esophageal reflux (Chronic ~09/2021) Sanchez's esophagus (Chronic ~09/2021) Venous insufficiency of right lower extremity (Acute) 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 CAD (coronary artery disease), kake coronary artery (Acute) Pulmonary interstitial fibrosis (Acute ~07/2022) Seen on CT at [facility]; on prednisone. Fall (Acute) Elevated troponin (Acute) COVID (Acute) Medical History Aftercare for healing traumatic fracture of hip (08/25/12) LEFT HIP Arcus senilis Benign prostatic hyperplasia Right prostatic nodule with normal PSA Community acquired pneumonia Complete edentulism, unspecified History of bladder cancer History of fracture of hip History of tobacco use QUIT 2004 Hyperlipidemia Phimosis of penis Primary malignant neoplasm of bladder (04/06/13) Surgical History Colonoscopy - [facility] 2004 Fracture, Open Treatment (~08/2012) LEFT HIP History of esophagogastroduodenoscopy (EGD) (~09/2021) Hx of cystoscopy Hx of vein stripping pt.report vein in R leg removed and replaced with another S/P routine circumcision (~07/2022) Social History Smoking/Tobacco Use Status: Former Tobacco Use Quit Date: 10/26/00 Smoking risk assessment performed?: Yes Alcohol Intake: never Drug use: Never Substance use type: does not use Do you feel safe at home: Yes Additional Social history: unable to assess [facility] Allergies and Home Medications Allergies Allergy/AdvReac Type Severity Reaction Status Date / Time No Known Allergies Allergy Verified 08/29/22 08:32 Home Medications Medication Instructions Recorded Confirmed Type aspirin 81 mg tablet,delayed 1 tab PO DAILY 02/15/13 08/29/22 History release (Ecotrin Low Strength) calcium carbonate 600 mg-vitamin 1 ea PO DAILY 04/12/13 08/29/22 History D3 5 mcg (200 unit) tablet ifyxwbpx-bwb-qcxyg acid 0.4 1 tab PO DAILY 08/18/14 08/29/22 History mg-lycopene 300 mcg-lutein 250 mcg tablet (Centrum Silver) magnesium oxide 400 mg PO DAILY #30 caps 07/28/18 08/29/22 Rx triamcinolone acetonide 0.1 % 1 applic topical BID #80 grams 04/21/22 08/29/22 Rx topical ointment nystatin 100,000 unit/gram topical 1 applic topical TID #15 grams 07/18/22 08/29/22 Rx cream acetaminophen 500 mg tablet 1,000 mg PO BID 08/04/22 08/29/22 History (Acetaminophen Extra Strength) PULSE OXIMETER #1 ea 08/29/22 08/29/22 Rx clopidogrel 75 mg tablet 75 mg PO DAILY #30 tabs 08/29/22 08/29/22 Rx famotidine 20 mg tablet 20 mg PO BID #60 tabs 08/29/22 08/29/22 Rx hydrochlorothiazide 25 mg tablet 25 mg PO DAILY #30 tabs 08/29/22 08/29/22 Rx ipratropium bromide 42 mcg (0.06 2 spray intranasal TID #15 mL 08/29/22 08/29/22 Rx %) nasal spray metoprolol succinate 100 mg 100 mg PO DAILY #30 tabs 08/29/22 08/29/22 Rx tablet,extended release 24 hr nitroglycerin 0.4 mg sublingual 0.4 mg sublingual Q5M PRN chest 08/29/22 08/29/22 History tablet pain prednisone 10 mg tablet See Rx Instructions PO DAILY #60 08/29/22 08/29/22 Rx tabs prednisone 20 mg tablet 40 mg PO DAILY 08/29/22 08/29/22 History rosuvastatin 40 mg tablet 40 mg PO HS #30 tabs 08/29/22 08/29/22 Rx tamsulosin 0.4 mg capsule 0.4 mg PO HS #30 caps 08/29/22 08/29/22 Rx umeclidinium 62.5 mcg-vilanterol 1 inh inhalation DAILY 09/30/22 09/30/22 History 25 mcg/actuation powdr for inhalation (Anoro Ellipta) Exam Narrative Exam Narrative: Elderly male eating dinner / upright in bed. Does not appear toxic. Interactive. Conversant. Const General: cooperative and no acute distress Nutritional Appearance: average body habitus Orientation: alert, oriented to person and oriented to place [facility] Head: normocephalic and atraumatic Eyes General: appearance normal, both eyes and all related structures Sclera: sclerae normal Resp Effort & Inspection: normal respiratory effort Auscultation: clear to auscultation bilaterally Cardio Rate: regular rate Rhythm: regular rhythm Heart Sounds: S1 normal and S2 normal GI Inspection: non-distended Palpation: soft and nontender Auscultation: normal bowel sounds Skin General skin exam: no rashes or lesions noted Neuro General: no focal motor deficits Cranial Nerves: facial strength normal Extrem General: no pedal edema and no calf tenderness Results Labs Result diagrams: 09/30/22 10:50 09/30/22 10:50 Labs: Laboratory Results - last 24 hr 09/30/22 09/30/22 09/30/22 10:50 10:50 10:50 WBC RBC Hgb Hct MCV MCH MCHC RDW Plt Count MPV Immature Gran % Neutrophils % Lymphocytes % Monocytes % Eosinophils % Basophils % Nucleated RBC % Absolute Neutrophils Absolute Lymphocytes Absolute Monocytes Absolute Eosinophils Absolute Basophils PT INR APTT VBG pH VBG pCO2 VBG pO2 VBG HCO3 VBG Total CO2 VBG O2 Saturation VBG Base Excess VBG Lactate 1.0 Sodium Cancelled 138 Potassium Cancelled 3.3 L Chloride Cancelled 102 Carbon Dioxide Cancelled 27.7 Anion Gap Cancelled 8.3 BUN Cancelled 32 H Creatinine Cancelled 1.3 Est GFR (CKD-EPI 2020) Cancelled 54.17 Glucose Cancelled 95 Calcium Cancelled 8.3 L Magnesium Cancelled 2.0 Total Bilirubin Cancelled 0.7 AST Cancelled 37 ALT Cancelled 34 Alkaline Phosphatase Cancelled 106 Troponin I 792 H* NT-Pro-B Natriuret Pep Total Protein Cancelled 6.9 Albumin Cancelled 2.8 L Procalcitonin 0.4 TSH 1.44 Urine Color Urine Clarity Urine pH Ur Specific [place]ver[place] Urine Protein Urine Ketones Urine Blood Urine Nitrite Urine Bilirubin Urine Urobilinogen Ur Leukocyte Esterase Urine RBC Urine WBC Ur Epithelial Cells Urine Crystals Urine Bacteria Urine Casts Urine Mucus Ur Culture Indicated? Urine Glucose Ethyl Alcohol < 3.0 COVID-19 Source SARS-CoV-2 (PCR) Influenza Type A (PCR) Influenza Type B (PCR) RSV (PCR) 09/30/22 09/30/22 09/30/22 10:50 10:50 10:50 WBC 11.91 H RBC 3.90 L Hgb 11.6 L Hct 35.5 L MCV 91 MCH 29.7 MCHC 32.7 RDW 15.4 H Plt Count 187 MPV 9.9 Immature Gran % 0.8 Neutrophils % 75.1 Lymphocytes % 15.3 Monocytes % 8.2 Eosinophils % 0.3 Basophils % 0.3 Nucleated RBC % 0.0 Absolute Neutrophils 8.94 H Absolute Lymphocytes 1.82 Absolute Monocytes 0.98 H Absolute Eosinophils 0.04 Absolute Basophils 0.04 PT 11.1 H INR 1.1 APTT 30.7 H VBG pH 7.43 H VBG pCO2 37 L VBG pO2 51 VBG HCO3 25 VBG Total CO2 26 VBG O2 Saturation 87 VBG Base Excess 0 VBG Lactate Sodium Potassium Chloride Carbon Dioxide Anion Gap BUN Creatinine Est GFR (CKD-EPI 2020) Glucose Calcium Magnesium Total Bilirubin AST ALT Alkaline Phosphatase Troponin I NT-Pro-B Natriuret Pep Total Protein Albumin Procalcitonin TSH Urine Color Urine Clarity Urine pH Ur Specific [place] Urine Protein Urine Ketones Urine Blood Urine Nitrite Urine Bilirubin Urine Urobilinogen Ur Leukocyte Esterase Urine RBC Urine WBC Ur Epithelial Cells Urine Crystals Urine Bacteria Urine Casts Urine Mucus Ur Culture Indicated? Urine Glucose Ethyl Alcohol COVID-19 Source SARS-CoV-2 (PCR) Influenza Type A (PCR) Influenza Type B (PCR) RSV (PCR) 09/30/22 09/30/22 09/30/22 12:31 12:31 13:16 WBC RBC Hgb Hct MCV MCH MCHC RDW Plt Count MPV Immature Gran % Neutrophils % Lymphocytes % Monocytes % Eosinophils % Basophils % Nucleated RBC % Absolute Neutrophils Absolute Lymphocytes Absolute Monocytes Absolute Eosinophils Absolute Basophils PT INR APTT VBG pH VBG pCO2 VBG pO2 VBG HCO3 VBG Total CO2 VBG O2 Saturation VBG Base Excess VBG Lactate Sodium Potassium Chloride Carbon Dioxide Anion Gap BUN Creatinine Est GFR (CKD-EPI 2020) Glucose Calcium Magnesium Total Bilirubin AST ALT Alkaline Phosphatase Troponin I 626 H* NT-Pro-B Natriuret Pep Total Protein Albumin Procalcitonin TSH Urine Color Yellow Urine Clarity Clear Urine pH 7.0 Ur Specific [place] 1.015 Urine Protein Negative Urine Ketones Negative Urine Blood Moderate H Urine Nitrite Negative Urine Bilirubin Negative Urine Urobilinogen 0.2 Ur Leukocyte Esterase Small H Urine RBC 5-10 H Urine WBC 10-20 H Ur Epithelial Cells Few Urine Crystals Negative Urine Bacteria Few Urine Casts Negative Urine Mucus Negative Ur Culture Indicated? C&S Done As Ordered Urine Glucose Negative Ethyl Alcohol COVID-19 Source Not Applicable SARS-CoV-2 (PCR) Positive A Influenza Type A (PCR) Negative Influenza Type B (PCR) Negative RSV (PCR) Negative 09/30/22 13:16 WBC RBC Hgb Hct MCV MCH MCHC RDW Plt Count MPV Immature Gran % Neutrophils % Lymphocytes % Monocytes % Eosinophils % Basophils % Nucleated RBC % Absolute Neutrophils Absolute Lymphocytes Absolute Monocytes Absolute Eosinophils Absolute Basophils PT INR APTT VBG pH VBG pCO2 VBG pO2 VBG HCO3 VBG Total CO2 VBG O2 Saturation VBG Base Excess VBG Lactate Sodium Potassium Chloride Carbon Dioxide Anion Gap BUN Creatinine Est GFR (CKD-EPI 2020) Glucose Calcium Magnesium Total Bilirubin AST ALT Alkaline Phosphatase Troponin I NT-Pro-B Natriuret Pep 949 H Total Protein Albumin Procalcitonin TSH Urine Color Urine Clarity Urine pH Ur Specific [place] Urine Protein Urine Ketones Urine Blood Urine Nitrite Urine Bilirubin Urine Urobilinogen Ur Leukocyte Esterase Urine RBC Urine WBC Ur Epithelial Cells Urine Crystals Urine Bacteria Urine Casts Urine Mucus Ur Culture Indicated? Urine Glucose Ethyl Alcohol COVID-19 Source SARS-CoV-2 (PCR) Influenza Type A (PCR) Influenza Type B (PCR) RSV (PCR) Last Vital Signs Temp 36.2 C L 09/30/22 16:57 Pulse 59 L 09/30/22 16:57 Resp 19 09/30/22 16:57 BP 127/85 09/30/22 16:57 Pulse Ox 93 09/30/22 16:57
--- NOTE | 2022-09-30 18:53 | TELEP.MEDR_ITS ---
Date of service: 09/30/22 Time of Service: 18:53 Telepharmacy Home Med Rec Allergies Allergies: No Known Allergies Allergy (Verified 08/29/22 08:32) Interview Person Interviewed: * Sister (Xin) Quality Quality of Interview/Accuracy of Medication List: Good Sources Sources used to compile medication list: [employer] Medication List and Retail Pharmacy Changes made to Home Medication List: ADDITIONS: * Albuterol MDI 2 puffs q4hr PRN DELETIONS: * Nystatin cream * Prednisone * Triamcinolone cream CHANGES: * HCTZ 12.5mg PO daily * Ipratropium Nasal spray PRN Additional Notes Additional Notes: * Ho Lauren reports that Alexander really struggles to take the inhaler and therefore he does not take it often. She thinks he's just not capable of taking it correctly Recommended Changes Recommended Changes(reason for recommendation): * none Attestation: The home medication list is now updated to the best of my knowledge and is ready to be reconciled by the provider. Please contact the [facility] Medication Reconciliation Pharmacist at for any questions.
--- NOTE | 2022-09-30 18:53 | TELEP.MEDREC ---
Date of service: 09/30/22 Time of Service: 18:53 Telepharmacy Home Med Rec Allergies Allergies: No Known Allergies Allergy (Verified 08/29/22 08:32) Interview Person Interviewed: Sister (Xin) Quality Quality of Interview/Accuracy of Medication List: Good Sources Sources used to compile medication list: [employer] Medication List and Retail Pharmacy Changes made to Home Medication List: ADDITIONS: Albuterol MDI 2 puffs q4hr PRN DELETIONS: Nystatin cream Prednisone Triamcinolone cream CHANGES: HCTZ 12.5mg PO daily Ipratropium Nasal spray PRN Additional Notes Additional Notes: Ho Lauren reports that Alexander really struggles to take the inhaler and therefore he does not take it often. She thinks he's just not capable of taking it correctly Recommended Changes Recommended Changes(reason for recommendation): none Attestation: The home medication list is now updated to the best of my knowledge and is ready to be reconciled by the provider. Please contact the [facility] Medication Reconciliation Pharmacist at for any questions.
[2022-09-30] MEDS: Tamsulosin 0.4 MG CAPCR PO (21:49)
[2022-09-30] MEDS: Rosuvastatin 10 MG TAB 40 MG PO (21:57)
[2022-10-01] VITALS (11 sets, daily range): BP systolic 123–147; BP diastolic 57–85; PULSE 50–65; RESP 16–20; TEMP 35.8–36.7; O2SAT 91–96
[2022-10-01] MEDS: Heparin 5,000 UNITS/ML VIAL 5000 UNITS SC ×2 (00:30→08:54)
[2022-10-01] MEDS: PIPERACILLIN/TAZO 4.5 GM in Normal Saline 100 ML IVPB ×4 (04:27→21:52)
[2022-10-01 07:06] LABS: Abs Immature Grans 0.09 10^3/uL (0.0-0.06); Absolute Basophil Count 0.02 10^3/uL (0.0-0.2); Absolute Lymphocyte Count 1.74 10^3/uL (1.2-3.4); Absolute Monocyte Count 0.43 10^3/uL (0.1-0.8); Absolute Neutrophil Count 5.79 10^3/uL (1.2-6.7); Basophils % 0.2; HCT 36.9 % (40.0-50.0); HGB 11.8 g/dL (13.5-17.5); Immature Grans % 1.1; Lymphocytes % 21.6; MCH 29.1 pg (27.0-33.0); MCV 91 fL (80-95); MPV 10.2 fL (8.0-11.0); Monocytes % 5.3; Neutrophils % 71.8; Platelet Count 188 10^3/uL (130-400); RBC 4.05 10^6/uL (4.36-5.78); RDW 15.1 % (11.8-14.1); RDW-SD 50.8 fL; WBC 8.07 10^3/uL (4.4-10.8)
[2022-10-01 07:15] LABS: Anion Gap 9.5 mmol/L (3-11); BUN 34 mg/dL (7-18); CO2 26.5 mmol/L (21.0-32.0); CREATININE 1.3 mg/dL (0.70-1.30); Calcium 8.9 mg/dL (8.5-10.1); Chloride 103 mmol/L (98-107); Estimated GFR 54.17 (mL/min/1.73m2); Glucose 128 mg/dL (74-106); Potassium 3.8 mmol/L (3.5-5.1); Sodium 139 mmol/L (136-145)
[2022-10-01] MEDS: Tiotropium/Olodaterol 10 PUFF INHALER IH (07:54)
--- NOTE | 2022-10-01 08:52 | RESPIRATORY ---
Addendum entered by Elpidio Azrate 10/03/22 07:59: Pt does not recall who his DME is at this time and states that he initially got his O2 setup at home about a month ago. Original Note: RT spoke with patient concerning what liter flow he uses at home, patient stated his baseline O2 is 3LPM at home.
[2022-10-01] MEDS: Dexamethasone 4 MG/ML VIAL 6 MG IVP (09:11)
[2022-10-01] MEDS: Aspirin E.C. 81 MG TABEC PO (09:13)
[2022-10-01] MEDS: Multivitamin w/Minerals TAB 1 TAB PO (09:13)
[2022-10-01] MEDS: Calcium 600mg/Vit D 200U TAB 1 TAB PO (09:14)
[2022-10-01] MEDS: Magnesium Oxide 400 MG TAB PO (09:14)
[2022-10-01] MEDS: Clopidogrel 75 MG TAB PO (09:14)
[2022-10-01] MEDS: hydroCHLOROthiazide 25 MG TAB PO (09:15)
[2022-10-01] MEDS: Famotidine 20 MG TAB PO (09:15)
[2022-10-01] MEDS: Metoprolol CR 100 MG TABCR PO (09:15)
[2022-10-01] MEDS: Normal Saline Flush 10 ML SYR IVP (09:15)
[2022-10-01] MEDS: REMDESIVIR 100 MG in Normal Saline 250 ML 250 MG IVPB (09:23)
[2022-10-01 11:00] LABS: Lab Add On Test DONE
--- NOTE | 2022-10-01 11:45 | PDOC.CMIN ---
- If Service Date Differs Date of service: 10/01/22 Time of Service: 11:45 Care Management Initial Assess REASON FOR HOSPITALIZATION:: NSTEMI, COVID PAST MEDICAL HISTORY/PAST SURGICAL HISTORY:: All Active Problems. Pneumonia due to COVID-19 virus (Acute). Chronic obstructive lung disease (Chronic). Diastasis recti (Acute). Hypertension (Acute). Stress test, 1999, with hypertensive response. Peripheral vascular disease (Chronic). Being actively followed by [facility]. Umbilical hernia (Acute). Inguinal adenopathy (Acute). Abnormal CT scan, gastrointestinal tract (Acute). Esophagitis (Acute ~09/2021). Esophageal reflux (Chronic ~09/2021). Sanchez's esophagus (Chronic ~09/2021). Venous insufficiency of right lower extremity (Acute). Stasis dermatitis (Acute). 03/2022 bilateral and chronic. Prostate nodule (Acute). Anemia (Chronic). Urinary retention (Acute). Pulmonary hypertension (Chronic). Hematoma of penis (Acute). Status post insertion of drug-eluting stent into left anterior descending (LAD) artery for coronary artery disease (Acute ~07/2022). [facility] 08/16/22; post stent echo with normal EF 69%, no WMA. CAD (coronary artery disease), anvik coronary artery (Acute). Pulmonary interstitial fibrosis (Acute ~07/2022). Seen on CT at [facility]; on prednisone. Fall (Acute). Elevated troponin (Acute). COVID (Acute). Medical History. Aftercare for healing traumatic fracture of hip (08/25/12). LEFT HIP. Arcus senilis. Benign prostatic hyperplasia. Right prostatic nodule with normal PSA. Community acquired pneumonia. Complete edentulism, unspecified. History of bladder cancer. History of fracture of hip. History of tobacco use. QUIT 2004. Hyperlipidemia. Phimosis of penis. Primary malignant neoplasm of bladder (04/06/13). Surgical History. Colonoscopy - [facility]. 2003. Fracture, Open Treatment (~08/2012). LEFT HIP. History of esophagogastroduodenoscopy (EGD) (~09/2021). Hx of cystoscopy. Hx of vein stripping. pt.report vein in R leg removed. and replaced with another. S/P routine circumcision (~07/2022) PREVIOUS FUNCTIONAL STATUS/SOCIAL/FAMILY SUPPORTS:: Alexander lives in [place] with his sister, Xin, and his nephew. His family is very supportive. He is independent with his ADL's, but he does not drive. CURRENT FUNCTIONAL STATUS:: Alexander is currently on Covid precautions. Per report, he is on 4L supplemental O2 [place]. His troponin was elevated in the ED, but is declining. He was recently transferred from [facility] to [facility] due to NSTEMI where he underwent catheterization. He denies chest pain at this time. He is being treated with remdesivir and dexamethasone for Covid. CM will continue to follow. ADVANCE DIRECTIVES:: Not on file at [facility]. Has patient been provided with info about the portal/API?: Yes Did the patient sign up for the portal?: No CODE STATUS:: DNR/DNI INSURANCE COVERAGE / FINANCIAL ISSUES:: KERLINE/JA CURRENT HOME/COMMUNITY SERVICES/EQUIPMENT:: No known services or equipment. PRIMARY CARE PHYSICIAN:: Nay Boyce POTENTIAL DISCHARGE NEEDS:: Evaluations for further needs, follow up appointments. PATIENT/FAMILY EDUCATION NEEDS:: Review discharge instructions and limitations, discussion of self care needs including ask me three. ANTICIPATED BARRIERS TO DISCHARGE:: None identified. TRANSPORTATION:: Via private vehicle by family. PLAN:: Anticipate Alexander will return home when medically cleared. His family will drive him home via private vehicle. He will follow up with his PCP and discharge plan of care. CM will continue to follow.
[2022-10-01 12:31] LABS: D-Dimer 1247 ng/mlFEU (<500)
--- NOTE | 2022-10-01 13:50 | IN_ITS ---
Date of service: 10/01/22 Time of Service: 13:50 PT Notes Visit Reasons: NSTEMI,Covid Pneumonia Physical Therapy Inpatient Initial Evaluation Date: 10/01/2022 Referring Doctor: Carlo Swain MD PT Orders: PT CONSULT: Eval/treat Precautions: Fall. Standard. Activity as tolerated. COVID-19 precautions. On 4 L of oxygen supplementation per minute via NC. Patient Profile/Admitting Diagnosis: Lester is an 82-year-old male who presented to the ED on 09/30/2022 due to a fall, slurring of speech, fever, and mild anterior shoulder tenderness. Patient is diagnosed with chronic obstructive pulmonary disease, hypertension, CAD, pulmonary interstitial fibrosis, hyperlipidemia, and pneumonia due to COVID-19 infection. Shoulder x-ray did not show any fracture nor dislocation. Head and spinal CT showed no acute intracranial abnormality nor fracture in the cervical spine. MRI of the brain showed age-appropriate cerebral atrophy and small vessel ischemic disease, no acute infarction. PMHX: All Active Problems?(Updated 09/30/22 @ 18:05 by Carlo Swain MD) Pneumonia due to COVID-19 virus (Acute) Chronic obstructive lung disease (Chronic) Diastasis recti (Acute) Hypertension (Acute) Stress test, 1999, with hypertensive response Peripheral vascular disease (Chronic) Being actively followed by [facility] Umbilical hernia (Acute) Inguinal adenopathy (Acute) Abnormal CT scan, gastrointestinal tract (Acute) Esophagitis (Acute ~09/2021) Esophageal reflux (Chronic ~09/2021) Sanchez's esophagus (Chronic ~09/2021) Venous insufficiency of right lower extremity (Acute) Stasis dermatitis (Acute) 03/2022 bilateral and chronic Prostate nodule (Acute) Anemia (Chronic) Urinary retention (Acute) Pulmonary hypertension (Chronic) Hematoma of penis (Acute) Status post insertion of drug-eluting stent into left anterior descending (LAD) artery for coronary artery disease (Acute ~07/2022) [facility] 08/16/22; post stent echo with normal EF 69%, no WMA. CAD (coronary artery disease), [place] coronary artery (Acute) Pulmonary interstitial fibrosis (Acute ~07/2022) Seen on CT at [facility]; on prednisone.Fall (Acute) Elevated troponin (Acute) COVID (Acute) Medical History? Aftercare for healing traumatic fracture of hip (08/25/12) LEFT HIP Arcus senilis Benign prostatic hyperplasia Right prostatic nodule with normal PSA Community acquired pneumonia Complete edentulism, unspecified History of bladder cancer History of fracture of hip History of tobacco use QUIT 2004 Hyperlipidemia Phimosis of penis Primary malignant neoplasm of bladder (04/06/13) Surgical History? Colonoscopy - MAC 2004 Fracture, Open Treatment (~08/2012) LEFT HIP History of esophagogastroduodenoscopy (EGD) (~09/2021) Hx of cystoscopy Hx of vein stripping pt.report vein in R leg removed and replaced with another S/P routine circumcision (~07/2022) Social History/Home Situation: Lives in a private home with 4 steps to enter with rails on both sides. Bedroom is on the second floor of the house with 12 steps, rails on both sides. His friend [id number] lives with him and provides assistance with cooking, [employer] store shopping, and driving to medical appointments. Equipment Owned/DME: FWW, SPC x 2 Subjective: Reports pain in L shoulder at 3/10 with movement. Mildly short of breath after ambulation activity. Denies headache, chest pain, and lightheadedness throughout. Objective: General Observation: Supine in bed. Telemetry monitoring in place. Oxygen supplementation at 4 L/min via NC. Osuna catheter in place. IV access in the right UEs. Noted a small contused area on the L parietal area sustained from the fall. Mental Status: Alert and oriented as to person, place, time, and purpose. Able to pay attention, focus, and respond appropriately. Speech slurred. Pain: 3/10 in L shoulder Vital Signs: WNL as clolsely monitored by nursing staff ROM: Right Upper Extremity: Shoulder Flexion WFL. Shoulder abduction WFL. Elbow flexion WFL. Wrist flexion WFL. Functional opening and closing of hand WFL. Left Upper Extremity: Shoulder Flexion WFL. Shoulder abduction WFL. Elbow flexion WFL. Wrist flexion WFL. Functional opening and closing of hand WFL. Right Lower Extremity: Hip flexion WFL. Hip abduction WFL. Knee flexion WFL. Ankle dorsiflexion WFL. Ankle plantarflexion WFL. Left Lower Extremity: Hip flexion WFL. Hip abduction WFL. Knee flexion WFL. Ankle dorsiflexion WFL. Ankle plantarflexion WFL. Strength: Right Upper Extremity: Shoulder flexors 4-/5. Shoulder abductors 4-/5. Elbow flexors 4-/5. Elbow extensors 4-/5. Web Site Admin strong. Left Upper Extremity: Shoulder flexors 4-/5. Shoulder abductors 4-/5. Elbow flexors 4-/5. Elbow extensors 4-/5. Web Site Admin strong. Right Lower Extremity: Hip flexors 4-/5. Hip abductors 4-/5. Knee flexors 4-/5. Knee extensors 4/5. Ankle dorsiflexors 3+/5. Ankle plantarflexors 4-/5. Left Lower Extremity: Hip flexors 4-/5. Hip abductors 4-/5. Knee flexors 4-/5. Knee extensors 4/5. Ankle dorsiflexors 4-/5. Ankle plantarflexors 4-/5. Bed Mobility/Transfers: Supine to sit with minimal assist Sit to supine stand by assist Sit to stand stand by assist using FWW Stand to sit stand by assist using FWW Gait: Instructed patient with level surface ambulation of 40 feet requiring contcat guard assist. Amira decreased. Step height decreased. Step length decreased. MIld shortness of breath subsided with rest. reported 3/10 pain in L shoudler with weight bearing. Balance: Static Sitting: Normal Dynamic Sitting: Fair Static Standing: Fair Dynamic Standing: Fair Special Tests: Mobility Limitations Standardized Measure [facility] AM-PAC 6 clicks Basic Mobility Inpatient Short Form: Raw Score: 20 CMS Score: 36% deficit Informed Consent/Education: Patient was instructed in purpose of PT consult and plan of care. Agreeable to proceed with established PT POC to achieve personal goals. Assessment: Strength symmetric except for at L shoulder due to pain from fall. No pronator drift seen but tongue deviated to the L when tested 3x. Babinksi absent in B foot. Patient presents with clinical signs and symptoms consistent with current/admitting diagnoses that have resulted to mobility limitations, gait instability, generalized weakness, and overall ADL decline as demonstrated by the following impairment level findings: 1. Decreased strength to B UE/LE major muscle groups 2. Impaired sitting/standing balance 3. Impaired activity tolerance 4. Shortness of breath 5. Slurred speech Impairments are contributing to the following functional limitations: 1. Decline in bed mobility skills 2. Decline in transfer skills 3. Difficulty with ambulation without assistive device and physical assistance 4. Increased completion time for mobility ADL performance 5. Increased risk for falls 6. Difficulty with managing steps alone safely Patient is assessed as a 88970 moderate complexity based on the following: History: 82-year-old female with past medical history as indicated above Examination: Demonstrable impairment in strength, balance, and mobility level with underlying impairments and functional limitations as exhibited above as well as deficit score of 36% utilizing the [facility] Mobility Inpatient Short Form Presentation: Evolving Decision Makin moderate complexity Goals: Goals X1 week 1. Supine-Sit independent 2. Sit-Supine independent 3. Sit-Stand independent 4. Stand-Sit independent with SPC 5. Bed-Chair independent with SPC 6. Chair-Bed independent with SPC 7. Independent gait on level surface with use of SPC for at least 100 feet without report of pain nor dyspnea 8. Independent stair negotiation while holding onto B rails for at least 12 steps without report of pain nor dyspnea 9. Independent with home exercise program 10. Good static and dynamic standing balance/tolerance Plan of Care/Treatment Plan: 1-2x/day, 7 days/week x 1 week. Plan of care has been reviewed with the BLACK OXIDE OPERATOR providing the service under Physical Therapy direction. Initiate Physical Therapy intervention for pain management as needed, strengthening, bed mobility, transfers, gait, stairs, balance training, and use of assistive device. DISCHARGE RECOMMENDATIONS: [] Home with no services [] [X] Home with services. Home when medically cleared by hospitalist. Patient will benefit from home health PT services in order to progress mobility level using least restrictive assistive ambulatory device, assess home safety, identify additional equipment needs, and establish a functional maintenance program that will increase ability of patient to remain at home. [] Home with outpatient PT [] [] SNF for continued rehabilitation [] [] [facility] [] [] SNF versus LTC based on ability to participate and progress [] TREATMENT CODE/TIME: 86925 x 20 minutes, 62648 x 23 minutes beginning at 13:50 PM. Thank you for the opportunity to participate in the care of this patient. Fatmata Mendez PT, DPT, CLT [facility] [place], [place]
--- NOTE | 2022-10-01 14:51 | W.PM.PROGNOT ---
Date of Service Date of service: 10/01/22 Time of Service: 14:51 Assessment and Plan Assessment and plan (1) Chronic obstructive lung disease: Status: Chronic Assessment and plan: He was recently started on Stiolto; now with therapeutic subst with tiotropium Br/Olodaterol PRN albuterol Currently on 4L supplemental O2 per NC. Nonlabored WOB Baseline home supplemental O2 is 3L. (2) Hypertension: Status: Acute Assessment and plan: Cont HCTZ, metoprolol Controlled. Monitor. Qualifiers: Hypertension type: primary hypertension Qualified Code(s): I10 - Essential (primary) hypertension (3) CAD (coronary artery disease), [place] coronary artery: Status: Acute Assessment and plan: Current NSTEMI with declining troponin. No EKG changes or CP. Previous NSTEMI and sent from [facility] to [facility] [place] on 08/15/22 where he underwent catheterization and received a DARLENE to LAD. This occurred after a circumcision undertaken because of phimosis. Cont ASA, Plavix, BB, statin No current CP. (4) Pulmonary interstitial fibrosis: Status: Acute Assessment and plan: Has been on a prednisone taper. Now, for COVID tx, on dexamethasone. Will need to verify if he was still tapering prednisone or is he off it or on a continuous dose. (5) Hyperlipidemia: Assessment and plan: Cont rosuvastatin. (6) Pneumonia due to COVID-19 virus: Status: Acute Assessment and plan: Has chronic resp failure; on home O2 Currently stable on 4L supplemental O2. Cont 5 day course of remdesivir. Cont dexamethasone. Therapeutic lovenox. Monitoring d-dimer (7) Discharge planning issues: Status: Acute Assessment and plan: DNR/DNI LIkely home w/o services. Subjective Subjective Patient reports: no new complaints, feels better and afebrile; denies vomiting or shortness of breath Interval history since last seen: He states he felt stronger today working with PT in the room Exam Narrative Exam Narrative: Elderly male lying in bed. Does not appear toxic. Interactive. Conversant. Const General: cooperative and no acute distress Nutritional Appearance: average body habitus Orientation: alert, oriented to person, oriented to place and not confused [facility] Head: normocephalic and atraumatic Eyes General: appearance normal, both eyes and all related structures Sclera: sclerae normal Resp Effort & Inspection: normal respiratory effort Auscultation: clear to auscultation bilaterally Cardio Rate: regular rate Rhythm: regular rhythm Heart Sounds: S1 normal and S2 normal GI Inspection: non-distended Palpation: soft and nontender Auscultation: normal bowel sounds Skin General skin exam: no rashes or lesions noted Neuro General: no focal motor deficits Cranial Nerves: facial strength normal Extrem General: no pedal edema and no calf tenderness Objective Last Vital Signs Temp 36.1 C L 10/01/22 11:03 Pulse 58 L 10/01/22 11:03 Resp 18 10/01/22 11:03 BP 136/68 10/01/22 11:03 Pulse Ox 93 10/01/22 11:03 Laboratory Results - last 24 hr 09/30/22 10/01/22 10/01/22 Unknown 06:25 06:25 WBC 8.07 RBC 4.05 L Hgb 11.8 L Hct 36.9 L MCV 91 MCH 29.1 MCHC 32.0 RDW 15.1 H Plt Count 188 MPV 10.2 Immature Gran % 1.1 Neutrophils % 71.8 Lymphocytes % 21.6 Monocytes % 5.3 Eosinophils % 0.0 Basophils % 0.2 Nucleated RBC % 0.0 Absolute Neutrophils 5.79 Absolute Lymphocytes 1.74 Absolute Monocytes 0.43 Absolute Eosinophils 0.00 Absolute Basophils 0.02 D-Dimer Sodium 139 Potassium 3.8 Chloride 103 Carbon Dioxide 26.5 Anion Gap 9.5 BUN 34 H Creatinine 1.3 Est GFR (CKD-EPI 2020) 54.17 Glucose 128 H Calcium 8.9 Add-On Test Request Cancelled 10/01/22 10/01/22 11:45 Unknown WBC RBC Hgb Hct MCV MCH MCHC RDW Plt Count MPV Immature Gran % Neutrophils % Lymphocytes % Monocytes % Eosinophils % Basophils % Nucleated RBC % Absolute Neutrophils Absolute Lymphocytes Absolute Monocytes Absolute Eosinophils Absolute Basophils D-Dimer 1247 H Sodium Potassium Chloride Carbon Dioxide Anion Gap BUN Creatinine Est GFR (CKD-EPI 2020) Glucose Calcium Add-On Test Request DONE
[2022-10-01 16:51] LABS: D-Dimer 1167 ng/mlFEU (<500)
[2022-10-01] MEDS: Enoxaparin 80 MG/0.8 ML SYR SC (19:06)
[2022-10-01] MEDS: Rosuvastatin 10 MG TAB 40 MG PO (19:06)
[2022-10-01] MEDS: Tamsulosin 0.4 MG CAPCR PO (21:51)
[2022-10-02] VITALS (22 sets, daily range): BP systolic 95–131; BP diastolic 50–72; PULSE 49–138; RESP 16–24; TEMP 35.4–36.5; O2SAT 3–95
[2022-10-02] MEDS: PIPERACILLIN/TAZO 4.5 GM in Normal Saline 100 ML IVPB ×4 (03:28→21:05)
[2022-10-02] MEDS: Enoxaparin 80 MG/0.8 ML SYR SC ×2 (05:55→17:00)
[2022-10-02 07:27] LABS: Abs Immature Grans 0.24 10^3/uL (0.0-0.06); Absolute Lymphocyte Count 2.67 10^3/uL (1.2-3.4); Basophils % 0.2; HGB 12.4 g/dL (13.5-17.5); Immature Grans % 1.5; Lymphocytes % 16.4; MCH 29.8 pg (27.0-33.0); MCHC 32.6 % (32.0-36.0); MCV 91 fL (80-95); MPV 10.2 fL (8.0-11.0); Monocytes % 7.4; Neutrophils % 74.5; Platelet Count 208 10^3/uL (130-400); RBC 4.16 10^6/uL (4.36-5.78); RDW 15.2 % (11.8-14.1); RDW-SD 51.4 fL; WBC 16.31 10^3/uL (4.4-10.8)
[2022-10-02 07:30] LABS: Absolute Basophil Count 0.03 10^3/uL (0.0-0.2); Absolute Monocyte Count 1.21 10^3/uL (0.1-0.8); Absolute Neutrophil Count 12.15 10^3/uL (1.2-6.7)
--- NOTE | 2022-10-02 07:45 | RT.EKG_ITS ---
APPROVED REPORT Exam: Resting ECG Reason for Exam: quita alejandra Patient Location: I HR:122 bpm ECG Measurements Heart Rate 122 AXIS CA [id number] P [id number] QRSd 109 QRS 18 QT 348 T 1 QTc 496 Conclusion Atrial fibrillation...? atrial activity
[2022-10-02 07:47] LABS: Anion Gap 8.7 mmol/L (3-11); BUN 32 mg/dL (7-18); CO2 27.3 mmol/L (21.0-32.0); CREATININE 1.2 mg/dL (0.70-1.30); Calcium 8.8 mg/dL (8.5-10.1); Chloride 104 mmol/L (98-107); Estimated GFR 59.63 (mL/min/1.73m2); Glucose 118 mg/dL (74-106); Potassium 3.8 mmol/L (3.5-5.1); Sodium 140 mmol/L (136-145)
[2022-10-02] MEDS: Tiotropium/Olodaterol 10 PUFF INHALER IH (07:52)
[2022-10-02 08:08] LABS: D-Dimer 887 ng/mlFEU (<500)
[2022-10-02 08:21] LABS: Lab Add On Test DONE; Troponin I 142 ng/L (<or=60)
[2022-10-02] MEDS: Metoprolol 5 MG/5 ML VIAL IVP (08:46)
[2022-10-02] MEDS: Clopidogrel 75 MG TAB PO (08:49)
[2022-10-02] MEDS: Aspirin E.C. 81 MG TABEC PO (08:49)
[2022-10-02] MEDS: Calcium 600mg/Vit D 200U TAB 1 TAB PO (08:51)
[2022-10-02] MEDS: Magnesium Oxide 400 MG TAB PO (08:51)
[2022-10-02] MEDS: Multivitamin w/Minerals TAB 1 TAB PO (08:51)
[2022-10-02] MEDS: Dexamethasone 4 MG/ML VIAL 6 MG IVP (08:53)
[2022-10-02] MEDS: Normal Saline Flush 10 ML SYR IVP ×2 (08:55→10:45)
[2022-10-02] MEDS: hydroCHLOROthiazide 25 MG TAB PO (09:00)
[2022-10-02] MEDS: REMDESIVIR 100 MG in Normal Saline 250 ML 250 MG IVPB (09:10)
--- NOTE | 2022-10-02 09:43 | NUR.NOTE ---
Nursing Note: While assisting another patient nurse was advised of a change in rhythm in patient, a request by this nurse for STATISTICAL ENGINEER to obtain a new set of vitals was made. Nurse updated by charge that EKG was ordered. Nurse went to patient room, EKG had been completed and nurse delivered EKG to MD, rthym change confirmed, new orders placed. At 0829 vitals were obtained by nurse, see flow sheet and comments. Patient reported chest pain at approximately the same time as rhythm change, nurse updated machinist supervisor outside, RN administered medications as ordered,see Mar and vitals flow sheet 0912 patient reports chest pain, dull ache radiating from center of chest to right side of chest 0913 vitals obtained, nurse called ICU to confirm rhythm, patient reports having nausea and chest pain, denies shortness of breath, denies dizziness, chest pain radiates from left side of chest now to right, patient states it feels like before, nurse advised machinist supervisor outside of change s/s, request MD be updated 0924 vitals obtained, patient reports improvement in nausea and reports 5/10 chest pain, machinist supervisor outside updated 0926 vitals obtained, patient now reports a decrease in chest pain 4/10, no nausea, no shortness of breath 0956 vitals obtained, patient reports 2/10 chest pain and states it is improving, patient decline IV morphine ordered by provider, patient received a call from sister and talking on the phone, 1000 speaking with sister on phone confirms 3/10 chest pain, intermittently rubing his chest, declines pain medication 1002 MD at bedside, see new orders,
--- NOTE | 2022-10-02 10:11 | W.PM.PROGNOT ---
Date of Service Date of service: 10/02/22 Time of Service: 10:11 Assessment and Plan Assessment and plan (1) Pneumonia due to COVID-19 virus: Status: Acute Assessment and plan: Has chronic resp failure; on home O2 Currently stable on 4L supplemental O2. Cont 5 day course of remdesivir (now day #3 of 5). Cont dexamethasone. Therapeutic lovenox. Monitoring d-dimer Critical care time spent interviewing and examining the patient, reviewing studies, discussing case with patient's nurse and consulting physicians was 30 minutes (2) Chronic obstructive lung disease: Status: Chronic Assessment and plan: cont. Stiolto; change prn albuterol to xopenex to decr. risk of tachycardia, cont. dexamethasone (started d/t COVID -19 and hypoxemia) (3) NSTEMI (non-ST elevated myocardial infarction): Status: Resolved Assessment and plan: patient w/ hx of prior NSTEMI and subsequent cardiac cath w/ PCI including DARLENE to LAD on 08/15; he is on ASA and Plavix; now that he has afib w/ RVR he should be on a DOAC. I will consult w/ his plate stacker regarding dropping one of his antiplatelets in favor of a DOAC. He is currently on lovenox at therapeutic levels of 1 mg/kg SC q12h. (currently 80 mg SC Q12H). (4) Hypertension: Status: Acute Assessment and plan: Cont HCTZ, metoprolol Controlled. Monitor. Qualifiers: Hypertension type: primary hypertension Qualified Code(s): I10 - Essential (primary) hypertension (5) CAD (coronary artery disease), [place] coronary artery: Status: Acute Assessment and plan: Current NSTEMI with declining troponin. Now w/ CP but in setting of rapid afib and drop in BP after iv lopressor. Will resume troponin monitoring. CP is improving. Will titrate his Toprol XL for better rate control. If pain worsens then consider NTG drip and transfer to [facility] Previous NSTEMI and sent from [facility] to [facility] on 08/15/22 where he underwent catheterization and received a DARLENE to LAD. This occurred after a circumcision undertaken because of phimosis. Cont ASA, Plavix, BB, statin (6) Pulmonary interstitial fibrosis: Status: Acute Assessment and plan: Has been on a prednisone taper. Now, for COVID tx, on dexamethasone. Will need to verify if he was still tapering prednisone or is he off it or on a continuous dose. (7) Hyperlipidemia: Assessment and plan: Cont rosuvastatin. (8) Discharge planning issues: Status: Acute Assessment and plan: DNR/DNI LIkely home w/o services. Subjective Subjective Interval history since last seen: Patient developed rapid afib this morning w/ HR in the 120's. Associated w/ CP-substernal. Patient given iv lopressor but HR still in the 120's, CP is improving was 5/10 now down to 2/10. EKG done and demonstrated afib rate 122 bpm w/ inferolateral ST depression. Patient's BP dropped into the low 90's after iv lopressor. Now his BP is recovering and his CP is improving. I have ordered MSO4 for his pain. He also has a lot of left shoulder pain secondary to his fall prior to his admission. Exam Narrative Exam Narrative: Elderly male who is hard of hearing, he was talking on the phone w/ his sister when I entered the room. He says that his CP is much better now even though he initially declined the morphine LUngs: bibasilar rales; no rhonchi Heart: tachycardic and irregularly irregular. I did not appreciate any murmur but difficult to hear w/ the air exchanger in the room d/t him being in respiratory isolation Abdomen: soft, nontender, nondistended Legs/feet: no cyanosis or edema Objective Last Vital Signs Temp 35.8 C L 10/02/22 08:29 Pulse 109 H 10/02/22 09:26 Resp 20 10/02/22 09:26 BP 99/65 L 10/02/22 09:26 Pulse Ox 94 10/02/22 09:26 Laboratory Results - last 24 hr 10/01/22 10/01/22 10/01/22 11:45 15:45 Unknown WBC RBC Hgb Hct MCV MCH MCHC RDW Plt Count MPV Immature Gran % Neutrophils % Lymphocytes % Monocytes % Eosinophils % Basophils % Nucleated RBC % Absolute Neutrophils Absolute Lymphocytes Absolute Monocytes Absolute Eosinophils Absolute Basophils D-Dimer 1247 H 1167 H Sodium Potassium Chloride Carbon Dioxide Anion Gap BUN Creatinine Est GFR (CKD-EPI 2020) Glucose Calcium Troponin I Add-On Test Request DONE 10/02/22 10/02/22 10/02/22 07:07 07:07 07:07 WBC 16.31 H RBC 4.16 L Hgb 12.4 L Hct 38.0 L MCV 91 MCH 29.8 MCHC 32.6 RDW 15.2 H Plt Count 208 MPV 10.2 Immature Gran % 1.5 Neutrophils % 74.5 Lymphocytes % 16.4 Monocytes % 7.4 Eosinophils % 0.0 Basophils % 0.2 Nucleated RBC % 0.0 Absolute Neutrophils 12.15 H Absolute Lymphocytes 2.67 Absolute Monocytes 1.21 H Absolute Eosinophils 0.00 Absolute Basophils 0.03 D-Dimer 887 H Sodium 140 Potassium 3.8 Chloride 104 Carbon Dioxide 27.3 Anion Gap 8.7 BUN 32 H Creatinine 1.2 Est GFR (CKD-EPI 2020) 59.63 Glucose 118 H Calcium 8.8 Troponin I Add-On Test Request 10/02/22 10/02/22 07:07 07:07 WBC RBC Hgb Hct MCV MCH MCHC RDW Plt Count MPV Immature Gran % Neutrophils % Lymphocytes % Monocytes % Eosinophils % Basophils % Nucleated RBC % Absolute Neutrophils Absolute Lymphocytes Absolute Monocytes Absolute Eosinophils Absolute Basophils D-Dimer Sodium Potassium Chloride Carbon Dioxide Anion Gap BUN Creatinine Est GFR (CKD-EPI 2020) Glucose Calcium Troponin I 142 H* Add-On Test Request DONE
[2022-10-02 10:19] LABS: Troponin I 151 ng/L (<or=60)
[2022-10-02] MEDS: Famotidine 20 MG TAB PO (10:21)
[2022-10-02] MEDS: Metoprolol CR 100 MG TABCR 150 MG PO (10:21)
[2022-10-02 10:25] LABS: Lab Add On Test DONE
[2022-10-02] MEDS: MORPHine 2 MG/ML SYR IVP (10:31)
[2022-10-02 10:48] LABS: NT-proBNP 621 pg/mL (<300)
[2022-10-02] MEDS: dilTIAZem 30 MG TAB PO (12:07)
[2022-10-02] MEDS: Diclofenac 1% Gel 100 GM TUBE TP ×2 (12:09→19:15)
--- NOTE | 2022-10-02 12:52 | PDOC.CMPRO ---
- If Service Date Differs Date of service: 10/02/22 Time of Service: 12:52 Care Management Progress Note S/O: Alexander is on baseline O2 at 3LPM, per MD medications for rate control continue to be adjusted. CM continues to follow. A: 82 year old male admitted to [facility] 09/30/22 for NSTEMI, Covid Pneumonia P: Alexander will return home when medically cleared. His family will drive him home via private vehicle. He will follow up with his PCP and discharge plan of care. CM will continue to follow.
[2022-10-02] MEDS: dilTIAZem 60 MG TAB PO ×2 (14:06→19:15)
[2022-10-02 15:03] LABS: Troponin I 469 ng/L (<or=60)
--- NOTE | 2022-10-02 15:30 | PT.INTREAT ---
Date of service: 10/02/22 Time of Service: 13:45 PT Notes Visit Reasons: NSTEMI,Covid Pneumonia Inpatient Physical Therapy Treatment Note [facility] Date: 10/02/2022 PRECAUTIONS: Activity as tolerated, COVID-19 SUBJECTIVE: Alexander is pleasant and agreeable to participating in PT.? He reports that he is feeling better and without chest pain this afternoon. He hopes to be going home soon. OBJECTIVE:?Per nursing request, completed chair exercises only this afternoon due to irregular heart rate and rhythm, with CP earlier in the day. ? PAIN: Patient c/o L shoulder pain, which he states is due to falling into a wall at home. ? BED MOBILITY/TRANSFERS/GAIT TRAINING: Held due to irregular rate and rhythm THEREX: Patient was instructed in an UE and LE strengthening program, completed in a seated position, to include: ankle pumps, heel raises, LAQ, hip flexion and hip abduction as well as shoulder flexion and horizontal shoulder abduction.? ASSESSMENT:? Patient tolerated session well without complaint or CP nor SOB. PLAN: Continue with global strengthening and general conditioning for improved mobility, as appropriate. TREATMENT CODE/TIME: 20 minutes; 48434 (13:45)
[2022-10-02 19:00] LABS: Troponin I 633 ng/L (<or=60)
[2022-10-02] MEDS: Rosuvastatin 10 MG TAB 40 MG PO (19:15)
[2022-10-02] MEDS: Tamsulosin 0.4 MG CAPCR PO (21:05)
[2022-10-02 23:08] LABS: Troponin I 678 ng/L (<or=60)
[2022-10-03] VITALS (84 sets, daily range): BP systolic 97–135; BP diastolic 61–86; PULSE 47–120; RESP 14–24; TEMP 35.9–36.2; O2SAT 33–100
[2022-10-03] MEDS: PIPERACILLIN/TAZO 4.5 GM in Normal Saline 100 ML IVPB ×4 (03:24→21:33)
[2022-10-03] MEDS: Normal Saline Flush 10 ML SYR IVP ×3 (03:24→21:30)
[2022-10-03] MEDS: Enoxaparin 80 MG/0.8 ML SYR SC (05:43)
[2022-10-03 06:53] LABS: Troponin I 500 ng/L (<or=60)
[2022-10-03 07:22] LABS: D-Dimer 599 ng/mlFEU (<500)
[2022-10-03] MEDS: Tiotropium/Olodaterol 10 PUFF INHALER IH (07:37)
[2022-10-03] MEDS: Diclofenac 1% Gel 100 GM TUBE TP ×2 (08:28→21:30)
[2022-10-03] MEDS: Calcium 600mg/Vit D 200U TAB 1 TAB PO (08:29)
[2022-10-03] MEDS: Dexamethasone 4 MG/ML VIAL 6 MG IVP (08:29)
[2022-10-03] MEDS: hydroCHLOROthiazide 25 MG TAB PO (08:29)
[2022-10-03] MEDS: Magnesium Oxide 400 MG TAB PO (08:29)
[2022-10-03] MEDS: dilTIAZem 60 MG TAB PO (08:29)
[2022-10-03] MEDS: Clopidogrel 75 MG TAB PO (08:29)
[2022-10-03] MEDS: Multivitamin w/Minerals TAB 1 TAB PO (08:29)
[2022-10-03] MEDS: Famotidine 20 MG TAB PO (08:30)
[2022-10-03] MEDS: Metoprolol CR 100 MG TABCR 150 MG PO (08:30)
[2022-10-03] MEDS: REMDESIVIR 100 MG in Normal Saline 250 ML 250 MG IVPB (08:30)
[2022-10-03] MEDS: Aspirin E.C. 81 MG TABEC PO (08:30)
--- NOTE | 2022-10-03 10:34 | PT.INTREAT ---
Date of service: 10/03/22 Time of Service: 09:45 PT Notes Visit Reasons: NSTEMI,Covid Pneumonia Inpatient Physical Therapy Treatment Note [facility] Date: 10/03/2022 PRECAUTIONS: Activity as tolerated, COVID-19 SUBJECTIVE: Alexander is pleasant and agreeable to participating in PT.? He reports that he is feeling much better today and that he has not had any chest pain today. OBJECTIVE:? PAIN: No c/o pain ? BED MOBILITY/TRANSFERS? Sit-stand: I? Stand-sit: I ? GAIT? Assistive Device: FWW? Weight bearing: Full Assist: S ? Distance:?80' + 10' ? Deviation: Cueing for FWW management THEREX: Patient was instructed in a LE strengthening program, completed in a standing position, to include: heel raises, hip flexion, hip abduction and hip extension, without complaint. He requires FWW support and SBA for safety. ? TOILETING: Patient toileted independently. ? ASSESSMENT:? Patient tolerated session well without complaint. He was able to tolerate a progression in gait distance with FWW and supervision with assist for management of lines, tubes and leads. PLAN: Continue with gait training with FWW support, as well as global strengthening. TREATMENT CODE/TIME: 30 minutes; 71740, 07414 (09:45)
--- NOTE | 2022-10-03 12:09 | PDOC.CMPRO ---
- If Service Date Differs Date of service: 10/03/22 Time of Service: 12:09 Care Management Progress Note S/O: Alexander remains monitored on Covid precautions. He was moved to the ICU today due to chest pain, so he can be more closely monitored. He is on 3LO2, and continues to be treated with remdesivir and dexamethasone. CM will continue to follow. A: 82 year old male admitted to [facility] 09/30/22 for NSTEMI, Covid Pneumonia P: Alexander will return home when medically cleared with a resumption of RN, PT. His family will drive him home via private vehicle. He will follow up with his PCP and discharge plan of care. CM will continue to follow.
--- NOTE | 2022-10-03 12:15 | RT.EKG_ITS ---
APPROVED REPORT Exam: Resting ECG Reason for Exam: chest pain Patient Location: I HR:51 bpm ECG Measurements Heart Rate 51 AXIS LA 134 P 70 QRSd 108 QRS 39 QT 457 T 41 QTc 421 Conclusion Sinus rhythm...normal P axis, V-rate 50- 99 Nondiagnostic inferior Q waves...Qs add to 80 mS in II III aVF
[2022-10-03 13:03] LABS: Troponin I 380 ng/L (<or=60)
--- NOTE | 2022-10-03 13:05 | W.PM.PROGNOT ---
Date of Service Date of service: 10/03/22 Time of Service: 13:05 Assessment and Plan Assessment and plan (1) Pneumonia due to COVID-19 virus: Status: Acute Assessment and plan: Has chronic resp failure; on home O2 Currently stable on 3L supplemental O2. SPO2 96% Cont 5 day course of remdesivir (now day #4 of 5). Cont dexamethasone. Therapeutic lovenox. Monitoring d-dimer Critical care time spent interviewing and examining the patient, reviewing studies, discussing case with patient's nurse and consulting physicians was 30 minutes (2) Chronic obstructive lung disease: Status: Chronic Assessment and plan: cont. Stiolto; change prn albuterol to xopenex to decr. risk of tachycardia, cont. dexamethasone (started d/t COVID -19 and hypoxemia) (3) NSTEMI (non-ST elevated myocardial infarction): Status: Resolved Assessment and plan: patient w/ hx of prior NSTEMI and subsequent cardiac cath w/ PCI including DARLENE to LAD on 08/15; he is on ASA and Plavix; now that he has afib w/ RVR he should be on a DOAC. I will consult w/ his television specialist regarding dropping one of his antiplatelets in favor of a DOAC. He is currently on lovenox at therapeutic levels of 1 mg/kg SC q12h. (currently 80 mg SC Q12H). In light of his recurrent CP, I will monitor him overnight in ICU, if he has ongoing angina then I will consider NTG drip. however for now will try him on low dose NTG paste if his bp will allow. (4) Hypertension: Status: Acute Assessment and plan: dc HCTZ to allow more BP for his rate controlling meds. Qualifiers: Hypertension type: primary hypertension Qualified Code(s): I10 - Essential (primary) hypertension (5) CAD (coronary artery disease), [place] coronary artery: Status: Acute Assessment and plan: he has had NSTEMI associated w/ his COVID infection. His troponin I level peaked at 792 on 09/30 but then decreased and increased again yesterday w/ his CP. Repeat today has declined to 380. He is on Toprol XL and diltiazem for afib rate control and full strength lovenox 1 mg/kg q12h and ASA and Plavix and statin. I have had to hold his Toprol XL and diltiazem d/t occasional HR in the 30's. We will watch him overnight in ICU and continue to cycle his troponins. If BP will allow, the trial of either NTG paste or low dose Imdur. (6) Pulmonary interstitial fibrosis: Status: Acute Assessment and plan: Has been on a prednisone taper. Now, for COVID tx, on dexamethasone. Will need to verify if he was still tapering prednisone or is he off it or on a continuous dose. (7) Hyperlipidemia: Assessment and plan: Cont rosuvastatin. (8) Discharge planning issues: Status: Acute Assessment and plan: DNR/DNI LIkely home w/o services. Subjective Subjective Interval history since last seen: Patient had more substernal chest pain today. NTG was not given d/t low BP in the 90's. Morphine was ordered but never given. By the time the morphine was verified, his CP has resolved. His afib rate has come under control but he has now had problems w/ bradycardia w/ pauses to 2 seconds. I have put his Toprol and diltiazem on hold. In light of his elevated troponins and recurrent anginal pain, I have decided to put him in ICU overnight while we monitor his troponins and chest pain. Exam Narrative Exam Narrative: Elderly male who is sittting up in his chair, he does not appear to be in any acute distress, he asked me to call his sister which I did and after I spoke w/ her and updated her on his condition he then proceeded to cnverse w/ her Lungs: bibasilar rales, no wheezes or rhonchi Heart: irregularly irregular, bradycardic (on the monitor his HR now is 60's to 70 afib) Abdomen: slightly distended, nontender Legs: no edema Objective Last Vital Signs Temp 36.0 C L 10/03/22 11:20 Pulse 62 10/03/22 11:20 Resp 19 10/03/22 11:20 BP 97/61 L 10/03/22 11:20 Pulse Ox 96 10/03/22 11:20 Laboratory Results - last 24 hr 10/02/22 10/02/22 10/02/22 14:20 17:55 22:40 D-Dimer Troponin I 469 H* 633 H* 678 H* 10/03/22 10/03/2222 05:57 05:57 12:35 D-Dimer 599 H Troponin I 500 H* 380 H*
--- NOTE | 2022-10-03 14:40 | NUR.NOTE ---
Patient c/o chest pain. Pulse 48. BP 99/72 manual. Pause shown on tele. No dizziness or lightheadedness. Transfer to icu. ICU nurse stated for med surg to hold 1400 diltiazem. Nursing Note:
[2022-10-03] MEDS: nitroGLYcerin 2% 1 INCH/1 GM PKT TP ×2 (14:47→21:29)
--- NOTE | 2022-10-03 15:16 | PHA.REVIEW2 ---
Pharmacy Admission Review - Admission Clinical Review (Last Reviewed 09/30/22 @ 18:02 by Carlo Swain MD) Discharge planning issues (Acute) Pneumonia due to COVID-19 virus (Acute) Hypertension (Acute) CAD (coronary artery disease), [place] coronary artery (Acute) Pulmonary interstitial fibrosis (Acute ~07/2022) Fall (Acute) Elevated troponin (Acute) COVID (Acute) No Known Allergies Allergy (Verified 08/29/22 08:32) Resuscitation Status DNR/DNI Height 5 ft 10 in Weight 77.111 kg - Renal Dosing Renal Dosing: BUN 32 mg/dL (7-18) H 10/02/22 07:07 Creatinine 1.2 mg/dL (0.70-1.30) 10/02/22 07:07 Medications needing adjustments: Reviewed List of meds needing interventions: eCrCl 50 ml/min, orders ok - Anticoagulation Anticoagulation: Hgb 12.4 g/dL (13.5-17.5) L 10/02/22 07:07 Hct 38.0 % (40.0-50.0) L 10/02/22 07:07 Plt Count 208 10^3/uL (130-400) 10/02/22 07:07 INR 1.1 (0.9-1.1) 09/30/22 10:50 Creatinine 1.2 mg/dL (0.70-1.30) 10/02/22 07:07 Therapeutic Anticoagulation: Reviewed Medications: Enoxaparin - Opiate Usage Evaluate Pain Scale/Pains Meds: Reviewed Scheduled Bowel Reg ordered if on Opiates?: No - Relevant Labs Sodium 140 mmol/L (136-145) 10/02/22 07:07 Potassium 3.8 mmol/L (3.5-5.1) 10/02/22 07:07 Chloride 104 mmol/L (98-107) 10/02/22 07:07 Magnesium 2.0 mg/dL (1.8-2.4) 09/30/22 10:50 Magnesium Cancelled 09/30/22 10:50 Electrolytes, C-Reactive P, ESR: Reviewed - DM Control DM Control: Glucose 118 mg/dL (74-106) H 10/02/22 07:07 DM Control: Reviewed - Cardiac Review Cardiac Review: Troponin I 380 ng/L (<or=60) H* 10/03/22 12:35 NT-Pro-B Natriuret Pep 621 pg/mL (<300) H 10/02/22 09:50 BP, HR, EF%: Reviewed List meds needing interventions: diltiazem (short acting TID), metoprolol 25 QID - Qtc Review QTc: Reviewed If Elevated, List meds needing intervention: QTc 421 - IV to PO Switch IV Medications: Reviewed - Home Meds Home Med List reviewed: Reviewed Relevent Home Meds Not ordered & why?: [facility] med rec complete; Prednisone was discontinued by pulmonology on 09/23 Medication adherence barriers identified?: Patient's sister reports that Alexander really struggles to take his Anoro inhaler and therefore he does not take it often. She thinks he's just not capaple of taking ot correctly. - Current meds Current Medication Order Review: Reviewed (Carlitos day 4)
[2022-10-03 15:39] LABS: Troponin I 315 ng/L (<or=60)
[2022-10-03] MEDS: Normal Saline 500 ML 10 ML IV (17:44)
[2022-10-03] MEDS: Rosuvastatin 10 MG TAB 40 MG PO (21:29)
[2022-10-03] MEDS: Metoprolol 25 MG TAB PO (21:29)
[2022-10-03] MEDS: Tamsulosin 0.4 MG CAPCR PO (21:29)
[2022-10-03] MEDS: dilTIAZem 30 MG TAB PO (21:29)
[2022-10-04] VITALS (39 sets, daily range): BP systolic 92–151; BP diastolic 57–96; PULSE 51–79; RESP 11–22; TEMP 35.6–36.6; O2SAT 92–98
[2022-10-04] MEDS: PIPERACILLIN/TAZO 4.5 GM in Normal Saline 100 ML IVPB ×4 (04:05→22:18)
[2022-10-04 06:05] LABS: Abs Immature Grans 0.36 10^3/uL (0.0-0.06); Absolute Basophil Count 0.05 10^3/uL (0.0-0.2); Absolute Eosinophil Count 0.01 10^3/uL (0.0-0.7); Absolute Lymphocyte Count 2.16 10^3/uL (1.2-3.4); Absolute Monocyte Count 1.22 10^3/uL (0.1-0.8); Basophils % 0.4; Eosinophils % 0.1; HCT 34.1 % (40.0-50.0); Immature Grans % 2.8; Lymphocytes % 16.7; MCH 29.3 pg (27.0-33.0); MCHC 32.3 % (32.0-36.0); MCV 91 fL (80-95); MPV 10.3 fL (8.0-11.0); Monocytes % 9.4; Neutrophils % 70.6; Platelet Count 199 10^3/uL (130-400); RBC 3.76 10^6/uL (4.36-5.78); RDW 15.4 % (11.8-14.1); RDW-SD 50.8 fL; WBC 12.96 10^3/uL (4.4-10.8)
[2022-10-04 06:21] LABS: Absolute Neutrophil Count 9.15 10^3/uL (1.2-6.7)
[2022-10-04 06:40] LABS: Procalcitonin 0.1 ng/mL
[2022-10-04 06:46] LABS: D-Dimer 648 ng/mlFEU (<500)
[2022-10-04 07:09] LABS: ALT 62 U/L (16-63); AST 54 U/L (15-37); Albumin 2.7 g/dL (3.4-5.0); Alkaline Phosphatase 100 U/L (46-116); Anion Gap 9.4 mmol/L (3-11); BUN 35 mg/dL (7-18); Bilirubin, Total 0.4 mg/dL (0.2-1.0); CO2 26.6 mmol/L (21.0-32.0); CREATININE 1.2 mg/dL (0.70-1.30); Calcium 8.6 mg/dL (8.5-10.1); Chloride 103 mmol/L (98-107); Estimated GFR 59.63 (mL/min/1.73m2); Glucose 125 mg/dL (74-106); NT-proBNP 1365 pg/mL (<300); Potassium 3.5 mmol/L (3.5-5.1); Sodium 139 mmol/L (136-145); Total Protein 6.8 g/dL (6.4-8.2)
[2022-10-04 07:29] LABS: Troponin I 242 ng/L (<or=60)
[2022-10-04] MEDS: Diclofenac 1% Gel 100 GM TUBE TP ×4 (08:00→20:50)
[2022-10-04] MEDS: Multivitamin w/Minerals TAB 1 TAB PO (09:38)
[2022-10-04] MEDS: nitroGLYcerin 2% 1 INCH/1 GM PKT TP (09:38)
[2022-10-04] MEDS: Famotidine 20 MG TAB PO (09:39)
[2022-10-04] MEDS: Magnesium Oxide 400 MG TAB PO (09:39)
[2022-10-04] MEDS: Clopidogrel 75 MG TAB PO (09:39)
[2022-10-04] MEDS: dilTIAZem 30 MG TAB PO (09:39)
[2022-10-04] MEDS: Dexamethasone 4 MG/ML VIAL 6 MG IVP (09:39)
[2022-10-04] MEDS: Calcium 600mg/Vit D 200U TAB 1 TAB PO (09:39)
[2022-10-04] MEDS: Metoprolol 25 MG TAB PO ×3 (09:39→20:50)
[2022-10-04] MEDS: Aspirin E.C. 81 MG TABEC PO (09:39)
[2022-10-04] MEDS: REMDESIVIR 100 MG in Normal Saline 250 ML 250 MG IVPB (11:00)
[2022-10-04] MEDS: Tiotropium/Olodaterol 10 PUFF INHALER IH (12:24)
--- NOTE | 2022-10-04 12:35 | W.PM.PROGNOT ---
Date of Service Date of service: 10/04/22 Time of Service: 12:35 Assessment and Plan Assessment and plan (1) Pneumonia due to COVID-19 virus: Status: Acute Assessment and plan: Has chronic resp failure; on home O2 Currently stable on 3L supplemental O2. SPO2 96% Cont 5 day course of remdesivir (now day #5 of 5). Cont dexamethasone. Therapeutic lovenox on hold d/t abdominal wall hematoma Monitoring d-dimer transfer out of ICU to med/surg as he has been stable, pain free and decreasing troponin I levels and rhythm has been controlled. Critical care time spent interviewing and examining the patient, reviewing studies, discussing case with patient's nurse and consulting physicians was 30 minutes (2) Atrial fibrillation: Start date: 10/02/22 Status: Acute Assessment and plan: patient went into afib on the morning of 10/02 but converted yesterday w/ increase in his metoprolol and addition of diltiazem. He is now on diltiazem 30 mg tid and metoprolol 25 mg qid. I will convert him to long acting diltiazem and toprol XL. I will switch his diltiazem tonight to cardizem CD and switch him to Toprol XL tomorrow. (3) Chronic obstructive lung disease: Status: Chronic Assessment and plan: cont. Stiolto; change prn albuterol to xopenex to decr. risk of tachycardia, cont. dexamethasone (started d/t COVID -19 and hypoxemia) (4) NSTEMI (non-ST elevated myocardial infarction): Status: Resolved Assessment and plan: patient w/ hx of prior NSTEMI and subsequent cardiac cath w/ PCI including DARLENE to LAD on 08/15; he is on ASA and Plavix; now that he has afib w/ RVR he should be on a DOAC. I will consult w/ cardiology prior to his discharge. He was on full strength lovenox 1 mg/kg but this had to be held d/t abdominal wall hematoma. (5) Hypertension: Status: Acute Assessment and plan: dc HCTZ to allow more BP for his rate controlling meds. Echocardiogram 09/30 demonstrated normal LV and RV size and function w/ no RWMA. No mention was made to diastolic function and no mention was made regarding any LVH. Qualifiers: Hypertension type: primary hypertension Qualified Code(s): I10 - Essential (primary) hypertension (6) CAD (coronary artery disease), [place] coronary artery: Status: Acute Assessment and plan: BP has been in the 90's necessitating hold his lopressor this morning. I will dc his NTG paste. (7) Pulmonary interstitial fibrosis: Status: Acute Assessment and plan: Has been on a prednisone taper. Now, for COVID tx, on dexamethasone. Will need to verify if he was still tapering prednisone or is he off it or on a continuous dose. (8) Hyperlipidemia: Assessment and plan: Cont rosuvastatin. (9) Discharge planning issues: Status: Acute Assessment and plan: DNR/DNI LIkely home w/o services. Subjective Subjective Interval history since last seen: Patient denies any new complaints. No CP today. Not dyspneic. He remains on oxygen @ 3 lpm NC which is his baseline. He is on d#5/5 of Remdesivir. He remains on decadron as well. His troponin continues to decline. Rhythm has remained SR in the 70's. Exam Narrative Exam Narrative: Very hard of hearing but alert and oriented, no distress Lungs: clear although breath sounds are obscured both by the air exchanger in the room as well as inferior stethoscope Heart: regular Abdomen: soft, nontender Legs/feet: no edema Objective Last Vital Signs Temp 36.6 C 10/04/22 09:00 Pulse 58 L 10/04/22 11:54 Resp 17 10/04/22 11:54 BP 107/72 10/04/22 11:54 Pulse Ox 96 10/04/22 11:54 Laboratory Results - last 24 hr 10/03/22 10/03/22 10/04/22 12:35 15:10 05:26 WBC RBC Hgb Hct MCV MCH MCHC RDW Plt Count MPV Immature Gran % Neutrophils % Lymphocytes % Monocytes % Eosinophils % Basophils % Nucleated RBC % Absolute Neutrophils Absolute Lymphocytes Absolute Monocytes Absolute Eosinophils Absolute Basophils D-Dimer 648 H Sodium Potassium Chloride Carbon Dioxide Anion Gap BUN Creatinine Est GFR (CKD-EPI 2020) Glucose Calcium Total Bilirubin AST ALT Alkaline Phosphatase Troponin I 380 H* 315 H* C-Reactive Protein NT-Pro-B Natriuret Pep Total Protein Albumin Procalcitonin 10/04/22 10/04/22 10/04/22 05:26 05:26 05:26 WBC 12.96 H RBC 3.76 L Hgb 11.0 L Hct 34.1 L MCV 91 MCH 29.3 MCHC 32.3 RDW 15.4 H Plt Count 199 MPV 10.3 Immature Gran % 2.8 Neutrophils % 70.6 Lymphocytes % 16.7 Monocytes % 9.4 Eosinophils % 0.1 Basophils % 0.4 Nucleated RBC % 0.0 Absolute Neutrophils 9.15 H Absolute Lymphocytes 2.16 Absolute Monocytes 1.22 H Absolute Eosinophils 0.01 Absolute Basophils 0.05 D-Dimer Sodium 139 Potassium 3.5 Chloride 103 Carbon Dioxide 26.6 Anion Gap 9.4 BUN 35 H Creatinine 1.2 Est GFR (CKD-EPI 2020) 59.63 Glucose 125 H Calcium 8.6 Total Bilirubin 0.4 AST 54 H ALT 62 Alkaline Phosphatase 100 Troponin I 242 H* C-Reactive Protein 2.50 H NT-Pro-B Natriuret Pep 1365 H Total Protein 6.8 Albumin 2.7 L Procalcitonin 0.1
[2022-10-04] MEDS: Acetaminophen 325 MG TAB PO (17:23)
[2022-10-04] MEDS: Normal Saline Flush 10 ML SYR IVP (17:24)
[2022-10-04] MEDS: Rosuvastatin 10 MG TAB 40 MG PO (20:49)
--- NOTE | 2022-10-04 21:22 | NUR.NOTE ---
Nursing Note: Transfer from ICU to [facility] room 214, handoff from Niki Soto RN to Yissel Morton LPN.
[2022-10-04] MEDS: Tamsulosin 0.4 MG CAPCR PO (22:21)
[2022-10-04] MEDS: dilTIAZem CD 120 MG CAPCR PO (22:21)
[2022-10-05] MEDS: PIPERACILLIN/TAZO 4.5 GM in Normal Saline 100 ML IVPB ×2 (04:05→09:25)
[2022-10-05 07:48] VITALS: PULSE 56
[2022-10-05] MEDS: Acetaminophen 325 MG TAB PO (08:15)
[2022-10-05] MEDS: Dexamethasone 4 MG/ML VIAL 6 MG IVP (08:15)
[2022-10-05] MEDS: Aspirin E.C. 81 MG TABEC PO (08:15)
[2022-10-05] MEDS: Normal Saline Flush 10 ML SYR IVP (08:15)
[2022-10-05] MEDS: Clopidogrel 75 MG TAB PO (08:16)
[2022-10-05] MEDS: Magnesium Oxide 400 MG TAB PO (08:16)
[2022-10-05] MEDS: Multivitamin w/Minerals TAB 1 TAB PO (08:16)
[2022-10-05] MEDS: Metoprolol 25 MG TAB PO (08:16)
[2022-10-05] MEDS: Famotidine 20 MG TAB PO (08:16)
[2022-10-05] MEDS: Calcium 600mg/Vit D 200U TAB 1 TAB PO (08:16)
[2022-10-05 08:21] VITALS: BP 137/77; PULSE 60; RESP 18; TEMP 37.1; O2SAT 97
[2022-10-05] MEDS: Tiotropium/Olodaterol 10 PUFF INHALER IH (08:40)
--- NOTE | 2022-10-05 11:40 | W.PM.DS.N ---
Date of service: 10/05/22 Time of Service: 11:40 DS: Diagnosis Discharge Diagnosis (1) Pneumonia due to COVID-19 virus: Status: Acute Asessment and Plan: patient completed 5 days of Remdesivir and dexamethasone. Patient is back down to his baseline oxygen requirements of 3 lpm which he was on for his COPD and pulmonary fibrosis (2) Atrial fibrillation: Status: Acute Asessment and Plan: patient converted to sinus/sinus bradycardia on metoprolol and diltiazem. patient will be prescribed diltiazem CD 120 mg nightly and remain on Toprol XL but at reduced dose of 50 mg daily. Apixaban 5 mg bid will be started and his aspirin will be stopped but Plavix will continue per my discusssion w/ [facility] cardiology. Cardiac event recorder was ordered at discharge. (3) Chronic obstructive lung disease: Status: Chronic Asessment and Plan: no change in his home meds (4) NSTEMI (non-ST elevated myocardial infarction): Status: Resolved Asessment and Plan: patient had transient elevation of his troponin up to 792 and declined to 242 by the time of his discharge. He did have transient chest pains but never lasted long enough to give him NTG tablets. His troponin elevation was associated w/ his admission w/ COVID and declined over the first day to 151 but then peaked again at 678 w/ his rapid afib. He should follow up w/ cardiology regarding his CAD and his afib. One could consider Imdur in the futuer if BP will allow. (5) CAD (coronary artery disease), [place] coronary artery: Status: Acute Asessment and Plan: patient was kept on his Plavix but ASA was stopped as he was now nearly 2 months out from his stent placement and in need of apixaban for his afib. I discussed this w/ [facility] cardiology who was in agreement. I left him on his metoprolol XL but reduced the dose after putting him diltiazem CD. he remains on his Crestor. (6) Hypertension: Status: Acute Asessment and Plan: HCTZ was stopped to allow adequate BP to increase his rate controlling meds (7) Pulmonary interstitial fibrosis: Status: Acute (8) Hyperlipidemia: (9) Discharge planning issues: Status: Acute Asessment and Plan: resumption of home health services including nursing, P.T. and REHABILITATION CASE COORDINATOR, follow up w/ Dr. Boyce in the next week to 10 days and follow up w/ his dermatology nurse practitioner in the next 4 weeks. Discharge Plan Disposition Patient Disposition: Home W/Home Health Services Condition: Improving Discharge Details Reason For Visit: NSTEMI,Covid Pneumonia Admit Date/Time: 09/30/22 14:53 Admit Provider: Carlo Swain Attending Provider: Carlo Swain Primary Care Provider: Nay Boyce Home Meds and New Rx's Prescriptions: New diltiazem HCl 120 mg Capsule,Extended Release 24hr 120 mg PO HS Qty: 30 0RF Eliquis 5 mg tablet 5 mg PO BID Qty: 60 0RF Continued magnesium oxide 400 mg capsule 400 mg PO DAILY Qty: 30 6RF nitroglycerin 0.4 mg tablet, sublingual 0.4 mg sublingual Q5M PRN (Reason: chest pain) (DME) PULSE OXIMETER See Rx Instructions .Route .MEDSUPPLY Qty: 1 0RF Rx Instructions: As directed - FOLLOW o2 LEVELS clopidogrel 75 mg tablet 75 mg PO DAILY Qty: 30 1RF rosuvastatin 40 mg tablet 40 mg PO HS Qty: 30 1RF famotidine 20 mg tablet 20 mg PO BID Qty: 60 1RF tamsulosin 0.4 mg capsule 0.4 mg PO HS Qty: 30 1RF ipratropium bromide 42 mcg (0.06 %) spray,non-aerosol 2 spray intranasal TID Qty: 15 1RF Label Comments: PRN Rx Instructions: administer into each nostril calcium carbonate-vitamin D3 1 EACH tablet 1 tab PO DAILY Centrum Silver 1 EACH tablet 1 tab PO DAILY acetaminophen [Acetaminophen Extra Strength] 500 mg Tablet 1,000 mg PO BID Anoro Ellipta 62.5-25 mcg/actuation blister with device 1 inh INHALATION DAILY Label Comments: INHALE ONE PUFF BY MOUTH EVERY DAY albuterol sulfate 90 mcg/actuation HFA aerosol inhaler 2 inh INHALATION Q4H PRN Label Comments: INHALE TWO PUFFS BY MOUTH EVERY 4 HOURS NEEDED FOR WHEEZING Changed metoprolol succinate 100 mg tablet extended release 24 hr 50 mg PO DAILY Qty: 30 1RF Discontinued aspirin [Ecotrin Low Strength] 81 MG tablet,delayed release (DR/EC) 1 tab PO DAILY hydrochlorothiazide 25 mg tablet 12.5 mg PO DAILY Discharge Instructions Instructions: Diltiazem (By mouth), Apixaban (By mouth), A-fib (Atrial Fibrillation) (DC), COVID-19 and Chronic Health Conditions (DC), Face Coverings (Masks) and COVID-19 (DC) Additional Instructions: You were treated for COVID_19 w/ 5 days of an antiviral Remdesivir. During your hospitalization you developed rapid atrial fibrillation, an irregular heart rhythm that can lead to strokes. YOu have been put on a blood thinner called Eliquis (apixaban) to prevent strokes. Your heart rhythm and rate were controlled w/ a combination of two rate controlling medications, metoprolol (which you were already taking) and diltiazem. A new prescription for diltiazem and for apixaban have been sent to your pharmacy, [facility]. You should make a follow up appointment w/ your dermatology nurse practitioner to go over your recent cardiac stent and your current heart medications. Because you were put on apixaban, the blood thinner, your aspirin is being stopped. However, because you have a drug eluting heart stent, you need to remain on your Plavix (clopidogrel). You have been ordered to have a heart monitor (cardiac event recorder) to monitor your heart rate and rhythm. Also you should make a follow up appointment w/ your primary care provider, Dr. Boyce. Note, that your hydrochlorothiazide was stopped so that you would have a high enough blood pressure to tolerate your metoprolol and the diltiazem. Stand Alone Forms: Nursing Discharge Form Referrals: Nay Boyce MD [Primary Care Provider] - (Please call Thursday to make a follow up appointment. ) Activity:: Activity as Tolerated Equipment/Supplies:: No Equipment Needed Diet:: Low Sodium Discharge Orders Discharge Orders: Discharge Order (Routine); Ordered 10/05/22 Ordered By: Phil Blanco Other Ambulatory Orders: Cardiac Event Recorder (Routine) Timeframe: 1 Day Facility: [facility] - Location: Respiratory Therapy Ordered By: Phil Blanco Discharge Data Discharge Date/Time-TO BE ENTERED AT DEPARTURE: 10/05/22 15:31 DS: Summary Time Spent with Patient providing and/or coordinating discharge services: Greater than 30 minutes Specific discharge activities: Interview/exam of patient; review of discharge instructions, completion of prescriptions/discharge instructions; discussion w/ nursing and CM; documentation of hospital visit Status at Discharge Functional status at discharge: uses cane/walker Overall status at discharge: patient is progressing back to baseline Mental Status: mental status grossly normal Speech and Movement: speech and movement normal Mood: congruent mood Affect: normal affect Exam Narrative Exam Narrative: Alexander is sitting up in his chair alert and oriented x 3 Lungs: fine cellophane rales at his bases posteriorly but no rhonchi or wheezing Heart: regular Extremities: no edema or cyanosis Psych Mental Status: mental status grossly normal Speech and Movement: speech and movement normal Mood: congruent mood Affect: normal affect DS: Data Vitals/I&O Vitals and I&O: Vital Signs Temperature 37.1 C 10/05/22 08:21 Temperature Source Temporal Artery Scan 10/05/22 08:21 Pulse 60 10/05/22 08:21 Pulse Rhythm Regular 10/05/22 09:43 Pulse 60 10/04/22 22:00 Respiratory Rate 18 10/05/22 08:21 Respiratory Effort 10/05/22 09:43 Respiratory Depth Normal 10/05/22 09:43 Respiratory Pattern Normal 10/05/22 09:43 Blood Pressure 137/77 10/05/22 08:21 Blood Pressure Mean 81 10/04/22 20:01 Blood Pressure Position Supine 10/04/22 05:00 Pulse Oximetry 97 10/05/22 08:21 Oxygen Delivery Method Nasal Cannula 10/05/22 08:21 Oxygen Flow Rate 3 10/05/22 08:21 Pain Level 1 10/05/22 08:21 Comment 10/03/22 11:20 Intake & Output 10/04/22 10/04/22 10/05/22 11:59 23:59 11:59 Intake Total 220 / 1180 960 / 1180 450 / 450 Output Total 800 / 2100 1300 / 2100 Balance -580 / -920 -340 / -920 450 / 450 Weight 76.3 kg Intake: IV 220 / 580 360 / 580 200 / 200 Oral 600 / 600 250 / 250 Output: Urine 800 / 2100 1300 / 2100 Other: Urine Color Yellow Yellow Straw Straw Urine Appearance Clear Clear Clear Comment Indwelling Osuna catheter. Stool Size Moderate Stool Characteristics Soft Formed Data Completed and Pending Labs on day of discharge: Preliminary micro results at discharge 09/30/22 10:30 Blood Culture - Preliminary Blood NO GROWTH 96 HOURS 09/30/22 10:50 Blood Culture - Preliminary Blood NO GROWTH 96 HOURS PFSH All Active Problems Atrial fibrillation (Acute) Discharge planning issues (Acute) Pneumonia due to COVID-19 virus (Acute) Chronic obstructive lung disease (Chronic) Diastasis recti (Acute) Hypertension (Acute) Stress test, 1999, with hypertensive response Peripheral vascular disease (Chronic) Being actively followed by [facility] Umbilical hernia (Acute) Inguinal adenopathy (Acute) Abnormal CT scan, gastrointestinal tract (Acute) Esophagitis (Acute ~09/2021) Esophageal reflux (Chronic ~09/2021) Sanchez's esophagus (Chronic ~09/2021) Venous insufficiency of right lower extremity (Acute) 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 CAD (coronary artery disease), [place] coronary artery (Acute) Pulmonary interstitial fibrosis (Acute ~07/2022) Seen on CT at [facility]; on prednisone. Fall (Acute) Elevated troponin (Acute) COVID (Acute) Medical History Aftercare for healing traumatic fracture of hip (08/25/12) LEFT HIP Arcus senilis Benign prostatic hyperplasia Right prostatic nodule with normal PSA Community acquired pneumonia Complete edentulism, unspecified History of bladder cancer History of fracture of hip History of tobacco use QUIT 2004 Hyperlipidemia Phimosis of penis Primary malignant neoplasm of bladder (04/06/13) Surgical History Colonoscopy - MAC 2004 Fracture, Open Treatment (~08/2012) LEFT HIP History of esophagogastroduodenoscopy (EGD) (~09/2021) Hx of cystoscopy Hx of vein stripping pt.report vein in R leg removed and replaced with another S/P routine circumcision (~07/2022) Social History (Reviewed 10/05/22 @ 12:41 by FAUSTINO Viramontes Smoking/Tobacco Use Status: Former Tobacco Use Quit Date: 10/26/00 Smoking risk assessment performed?: Yes Alcohol Intake: never Drug use: Never Substance use type: does not use Do you feel safe at home: Yes Additional Social history: unable to assess francine
[2022-10-05 12:03] VITALS: BP 118/76; PULSE 60; RESP 18; TEMP 36.6; O2SAT 97
[2022-10-05] MEDS: Metoprolol CR 25 MG TABCR PO (12:04)
--- NOTE | 2022-10-05 12:36 | PDOC.HHF2F ---
Home Health Referral Home Health Orders Clinical synopsis of why skilled professionals are needed: patient presented w/ COVID-19 and developed rapid atrial fibrillation. His medical conditions including his COPD and his CAD require ongoing nursing monitoring of his CV system and his medication changes. he also needs P.T. to treat his generalized weakness and deconditioning from his multiple recent hospitalizations. Medical diagnosis necessitation home health referral: atrial fibrilation, COVID-19 pneumonia, COPD, CAD Registered Nurse: Check all that apply Instruct on new or changed medication(s)/assess compliance: Ordered Assess for exacerbation of medical condition, instruct patient/caregivers on signs and symptoms to report for early detection: Ordered Physical Therapist: Check all that apply Increase strength & endurance for safe mobility at home: Ordered To design/establish home maintenance program: Ordered Fall reduction therapy program for patient with history of frequent falls: Ordered Home safety evaluation and teaching/gait training including stair management (if applicable): Ordered Better Breathing Program: Ordered Shredded Filler Hopper Feeder: Assist with community resources: Ordered Assist with blue split trimmer care planning: Ordered Home Bound Status Requires the aid of supportive device (check all that apply): Walker Use of Special Transportation (Describe transportation and medical necessity): wheelchair van d/t decreased ambulatory abilities Patient has a condition such that leaving home is medically contraindicated (Describe): his underlying heart and lung conditions make travel outside his home particularly jeopardizing to his health due to high risk for falls, high risk for worsening dyspnea Describe why leaving home would require a considerable and taxing effort: Requires frequent rest periods, Oxygen and Safety Concerns: describe (increased risk of falls) Encounter Date and Reason: I certify that a FTF encounter for this patient was performed on October 05, 2022 and that such encounter was related to the primary reason the patient requires home health services. The encounter was conducted in the following manner: By me as the certifying physician, CROSS CUT SAWYER, PA or By an inpatient physician, CROSS CUT SAWYER or PA during an inpatient stay who communicated findings to me, Certification And Authentication I certify that I composed the above information based on my clinical judgment relating to this patient's medical condition and, if applicable, clinical findings communicated to me by the NPP or inpatient physician who performed the FTF encounter. Name of Provider that will be monitoring home health services: Nay Boyce
[2022-10-05 13:59] VITALS: PULSE 60
[2022-10-05] MEDS: Apixaban 5 MG TAB PO (14:20)
--- NOTE | 2022-10-05 15:59 | PDOC.CMDIS ---
- If Service Date Differs Date of service: 10/05/22 Time of Service: 15:59 LACE Index Scoring Tool - Questions: Length of Stay (in days): 4 - 6 Acuity (Admit via E.D.?): Yes Comorbidities: Previous M.I., Chronic Pulmonary Disease, Any Tumor E.D. Visits: 2 - Answers: Total Score: 14 Risk of Readmission: High Risk Care Management Discharge Reason for Hospitalization: NSTEMI, COVID Discharge Plan: Alexander will return home today with a resumption of RN, PT. His sister will drive him home via private vehicle. He will follow up with his PCP and discharge plan of care. Patient/Family Education Needs: Review discharge instructions and limitations, discussion of self care needs including ask me three. Services Needed at Discharge: Home Health Care Services (resume RN, PT)
== END 2022-10-05 15:31 | disposition home health service (06) | DRG 177 ==
LOC: ER 14:41 → MS 16:50 → ICU 10-03 14:41 → MS 10-04 21:08
PROVIDERS: Family Medicine; Internal Medicine; Nurse Practitioner Family; Admitting Provider Family Medicine; Emergency Provider Emergency Medicine; PCP Family Medicine; Visit Provider Family Medicine
DX: U07.1 COVID-19 (principal); I21.4 Non-ST elevation (NSTEMI) myocardial infarction; J12.82 Pneumonia due to coronavirus disease 2019; J44.0 Chronic obstructive pulmonary disease with (acute) lower respiratory infection; I48.91 Unspecified atrial fibrillation; I73.9 Peripheral vascular disease, unspecified; W01.0XXA Fall on same level from slipping, tripping and stumbling without subsequent striking against object, initial encounter; R47.81 Slurred speech; Z99.81 Dependence on supplemental oxygen; R59.0 Localized enlarged lymph nodes; K22.70 Barrett's esophagus without dysplasia; I87.2 Venous insufficiency (chronic) (peripheral); J84.10 Pulmonary fibrosis, unspecified; I10 Essential (primary) hypertension; K21.9 Gastro-esophageal reflux disease without esophagitis; D64.9 Anemia, unspecified; I27.20 Pulmonary hypertension, unspecified; Z95.5 Presence of coronary angioplasty implant and graft; I25.10 Atherosclerotic heart disease of native coronary artery without angina pectoris; N40.2 Nodular prostate without lower urinary tract symptoms; E78.5 Hyperlipidemia, unspecified; Z85.51 Personal history of malignant neoplasm of bladder; Z87.891 Personal history of nicotine dependence; I25.2 Old myocardial infarction; Z66 Do not resuscitate
CPT/HCPCS: 36410; 36415; 80048; 80053; 82805; 84145; 87040; 87077; 87637; 93005; 93270; 93308; 94640; 96365; 96375; 97110; 97162; 97530; 99285; 70450; 70551; 71046; 72125; 73030; 80320; 81003; 81015; 83605; 83735; 83880; 84443; 84484; 85025; 85379; 85610; 85730; 86140; 87086; 87186; 93010; 94667; 94760; 99223; 99232; 99239; 99291; J0248; J1100; J1644; J1650; J2270; J2543

== ENCOUNTER → 2022-10-17 12:25 | Outpatient (BNVA) | payer MEDICARE, MEDICAID, SELFPAY ==
--- NOTE | 2022-10-23 12:17 | W.CARDEVENT ---
Date of service: 10/23/22 Time of Service: 12:18 Cardiac Event Recorder Referring Provider:: Nay Boyce Indications:: atrial fibrillation Cardiac Event Note: This is a cardiac event monitor which monitored the patient problem October 05 through reportedly for atrial fibrillation Rhythm throughout was sinus with an average heart rate of 68. Range was 52, maximum 106 Atrial and ventricular ectopic beats were seen. There was one 5 beat run of nonsustained ventricular tachycardia which occurred October 10 There was no atrial fibrillation, no high-grade AV block, no pauses greater than 3 seconds There were no apparent patient's symptoms
== END ==
PROVIDERS: PCP Family Medicine; Referring Provider Nurse Practitioner Family; Visit Provider Internal Medicine Cardiovascular Disease
DX: I25.10 Atherosclerotic heart disease of native coronary artery without angina pectoris (principal); I27.20 Pulmonary hypertension, unspecified; I10 Essential (primary) hypertension; J84.10 Pulmonary fibrosis, unspecified; I48.91 Unspecified atrial fibrillation; Z95.5 Presence of coronary angioplasty implant and graft; I25.2 Old myocardial infarction; Z86.16 Personal history of COVID-19
CPT/HCPCS: 93005; 99203; 99214

== ENCOUNTER 2022-10-17 12:41 | Outpatient (CLI) | payer MEDICARE, MEDICAID, SELFPAY ==
--- NOTE | 2022-10-17 12:30 | RT.EKG_ITS ---
APPROVED REPORT Exam: Resting ECG Reason for Exam: new patient Patient Location: O HR:83 bpm ECG Measurements Heart Rate 83 AXIS DE 116 P -62 QRSd 101 QRS 37 QT 358 T 46 QTc 421 Conclusion Sinus or ectopic atrial rhythm...P axis (-45,135) Atrial premature complexes in couplets...pair SV complexes w/ short R-R Borderline short DE interval...DE int <120mS Baseline wander in lead(s) V5
== END 2022-10-17 12:42 | disposition home or self-care (01) ==
LOC: DI.CARD 12:42
PROVIDERS: PCP Family Medicine; Visit Provider Internal Medicine Cardiovascular Disease
DX: I10 Essential (primary) hypertension (principal); I25.10 Atherosclerotic heart disease of native coronary artery without angina pectoris; I27.20 Pulmonary hypertension, unspecified; Z95.5 Presence of coronary angioplasty implant and graft; R94.31 Abnormal electrocardiogram [ECG] [EKG]
CPT/HCPCS: 93010

== ENCOUNTER 2022-10-18 20:02 | Emergency (ER) | payer MEDICARE, MEDICAID, SELFPAY ==
--- NOTE | 2022-10-18 20:13 | W.ED.GENAD ---
Discharge Plan Disposition Patient Disposition: Condition: Poor Discharge Details Clinical Impression: Cardiac arrest Primary Care Provider: Nay Boyce ED Provider: Zach Barrios Home Meds and New Rx's Prescriptions: No Action magnesium oxide 400 mg capsule 400 mg PO DAILY Qty: 30 6RF nitroglycerin 0.4 mg tablet, sublingual 0.4 mg sublingual Q5M PRN (Reason: chest pain) (DME) PULSE OXIMETER See Rx Instructions .Route .MEDSUPPLY Qty: 1 0RF Rx Instructions: As directed - FOLLOW o2 LEVELS clopidogrel 75 mg tablet 75 mg PO DAILY Qty: 30 1RF rosuvastatin 40 mg tablet 40 mg PO HS Qty: 30 1RF famotidine 20 mg tablet 20 mg PO BID Qty: 60 1RF tamsulosin 0.4 mg capsule 0.4 mg PO HS Qty: 30 1RF ipratropium bromide 42 mcg (0.06 %) spray,non-aerosol 2 spray intranasal TID Qty: 15 1RF Label Comments: PRN Rx Instructions: administer into each nostril calcium carbonate-vitamin D3 1 EACH tablet 1 tab PO DAILY Centrum Silver 1 EACH tablet 1 tab PO DAILY acetaminophen [Acetaminophen Extra Strength] 500 mg Tablet 1,000 mg PO BID Anoro Ellipta 62.5-25 mcg/actuation blister with device 1 inh INHALATION DAILY Label Comments: INHALE ONE PUFF BY MOUTH EVERY DAY albuterol sulfate 90 mcg/actuation HFA aerosol inhaler 2 inh INHALATION Q4H PRN Label Comments: INHALE TWO PUFFS BY MOUTH EVERY 4 HOURS NEEDED FOR WHEEZING diltiazem HCl 120 mg Capsule,Extended Release 24hr 120 mg PO HS Qty: 30 0RF metoprolol succinate 100 mg tablet extended release 24 hr 50 mg PO DAILY Qty: 30 1RF Eliquis 5 mg tablet 5 mg PO BID Qty: 60 0RF Medical Decision Making This is an 82-year-old male with past medical history of reactive airway disease, high cholesterol, GERD, bladder cancer, high cholesterol, peripheral vascular disease, who presents today in cardiac arrest. Patient was eating dinner on with his family, and suddenly arrested and stopped breathing. EMS was called immediately upon arrival at around 7:10 PM he was noted to be in full cardiac arrest, with no pulse. CPR was started, and continued. Patient's airway was secured by EMS and he was brought to the emergency department for further assessment. Family is not available for questions. EMS has no additional historical factors. Family stated that the patient was DNR/DNI at home, however they were not able to find the paperwork, and so CPR was started and the patient was brought here. Multiple rounds of epinephrine had been given. Physical exam upon arrival demonstrates patient with no pulses. Bedside ultrasound performed immediately upon arrival shows no evidence of cardiac movement whatsoever. No cardiac activity noted on the monitor. CPR was continued for an additional 3 rounds, with no change in activity or cardiac changes. With the patient's history, family's requested DNR/DNI status, and over 45 minutes of active CPR without any ROSC or change, the decision was made to call the code at 8:10 PM. We initially tried to call Xin Adair the patient's sibling a few times prior to arrival, but she was driving and was not able to milk pickup driver. She did contact you shortly thereafter confirmed that he did not want any other additional interventions. We did discuss the efforts that were made here, and when the code was called. Patient will be [place] the [facility]. Family will contact home to morning. Which is . I did contact the biomedical engineering technician Shorty Garrido, he sees no indication for formal ME exam. HPI HPI Narrative: This is an 82-year-old male with past medical history of reactive airway disease, high cholesterol, GERD, bladder cancer, high cholesterol, peripheral vascular disease, who presents today in cardiac arrest. Patient was eating dinner on with his family, and suddenly arrested and stopped breathing. EMS was called immediately upon arrival at around 7:10 PM he was noted to be in full cardiac arrest, with no pulse. CPR was started, and continued. Patient's airway was secured by EMS and he was brought to the emergency department for further assessment. Family is not available for questions. EMS has no additional historical factors. Related Data Home Medications Medication Instructions Recorded Confirmed calcium carbonate 600 mg-vitamin 1 tab PO DAILY 04/12/13 10/17/22 D3 5 mcg (200 unit) tablet [id number] acid 0.4 1 tab PO DAILY 08/18/14 10/17/22 mg-lycopene 300 mcg-lutein 250 mcg tablet (Centrum Silver) magnesium oxide 400 mg PO DAILY #30 caps 07/28/18 10/17/22 acetaminophen 500 mg tablet 1,000 mg PO BID 08/04/22 10/17/22 (Acetaminophen Extra Strength) PULSE OXIMETER #1 ea 08/29/22 10/17/22 clopidogrel 75 mg tablet 75 mg PO DAILY #30 tabs 08/29/22 10/17/22 famotidine 20 mg tablet 20 mg PO BID #60 tabs 08/29/22 10/17/22 ipratropium bromide 42 mcg (0.06 2 spray intranasal TID #15 mL 08/29/22 10/17/22 %) nasal spray nitroglycerin 0.4 mg sublingual 0.4 mg sublingual Q5M PRN chest 08/29/22 10/17/22 tablet pain rosuvastatin 40 mg tablet 40 mg PO HS #30 tabs 08/29/22 10/17/22 tamsulosin 0.4 mg capsule 0.4 mg PO HS #30 caps 08/29/22 10/17/22 albuterol sulfate 90 mcg/actuation 2 inh inhalation Q4H PRN 09/30/22 10/17/22 aerosol inhaler umeclidinium 62.5 mcg-vilanterol 1 inh inhalation DAILY 09/30/22 10/17/22 25 mcg/actuation powdr for inhalation (Anoro Ellipta) apixaban 5 mg tablet (Eliquis) 5 mg PO BID #60 tabs 10/05/22 10/17/22 diltiazem HCl 120 mg 120 mg PO HS #30 caps 10/05/22 10/17/22 capsule,extended release 24 hr metoprolol succinate 100 mg 50 mg PO DAILY #30 tabs 10/05/22 10/17/22 tablet,extended release 24 hr Previous Rx's Medication Instructions Recorded magnesium oxide 400 mg PO DAILY #30 caps 07/28/18 PULSE OXIMETER #1 ea 08/29/22 clopidogrel 75 mg tablet 75 mg PO DAILY #30 tabs 08/29/22 famotidine 20 mg tablet 20 mg PO BID #60 tabs 08/29/22 ipratropium bromide 42 mcg (0.06 2 spray intranasal TID #15 mL 08/29/22 %) nasal spray rosuvastatin 40 mg tablet 40 mg PO HS #30 tabs 08/29/22 tamsulosin 0.4 mg capsule 0.4 mg PO HS #30 caps 08/29/22 apixaban 5 mg tablet (Eliquis) 5 mg PO BID #60 tabs 10/05/22 diltiazem HCl 120 mg 120 mg PO HS #30 caps 10/05/22 capsule,extended release 24 hr metoprolol succinate 100 mg 50 mg PO DAILY #30 tabs 10/05/22 tablet,extended release 24 hr Allergies Allergy/AdvReac Type Severity Reaction Status Date / Time No Known Allergies Allergy Verified 10/08/22 14:43 General BAIRON: 3 Review of Systems All systems reviewed & are unremarkable except as noted in HPI and below PFSH All Active Problems Cardiac arrest (Acute) Chronic obstructive lung disease (Chronic) Diastasis recti (Acute) Hypertension (Acute) Stress test, 1999, with hypertensive response Peripheral vascular disease (Chronic) Being actively followed by [facility] Umbilical hernia (Acute) Inguinal adenopathy (Acute) Abnormal CT scan, gastrointestinal tract (Acute) Esophagitis (Acute ~09/2021) Esophageal reflux (Chronic ~09/2021) Sanchez's esophagus (Chronic ~09/2021) Venous insufficiency of right lower extremity (Acute) 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 CAD (coronary artery disease), [place] coronary artery (Acute) Pulmonary interstitial fibrosis (Acute ~07/2022) Seen on CT at [facility]; on prednisone. Atrial fibrillation (Acute) Medical History Aftercare for healing traumatic fracture of hip (08/25/12) LEFT HIP Arcus senilis Benign prostatic hyperplasia Right prostatic nodule with normal PSA Community acquired pneumonia Complete edentulism, unspecified History of bladder cancer History of fracture of hip History of tobacco use QUIT 2004 Hyperlipidemia Phimosis of penis Primary malignant neoplasm of bladder (04/06/13) Surgical History Colonoscopy - MAC 2004 Fracture, Open Treatment (~08/2012) LEFT HIP History of esophagogastroduodenoscopy (EGD) (~09/2021) Hx of cystoscopy Hx of vein stripping pt.report vein in R leg removed and replaced with another S/P routine circumcision (~07/2022) Social History Smoking/Tobacco Use Status: Former Tobacco Use Quit Date: 10/26/00 Smoking risk assessment performed?: Yes Alcohol Intake: never Drug use: Never Substance use type: does not use Do you feel safe at home: Yes Additional [facility] history: [facility] Ex[facility] Narrative Exam Narrative: GEN: unresponsive, in extremis SKIN: pale, cool NECK: no signs of trauma HENT: normocephalic atraumatic CV: PEA, no pulses, CPR in progress RESP: no spontaneous respirations, intubated ABD: soft, bruised MSK: no spontaneous movements, no obvious deformity BACK: no obvious trauma NEURO: unresponsive, absent pupillary reflex, corneal reflex, gag, and no spontaneous movements PSYCH: unresponsive
[2022-10-18 20:59] VITALS: PULSE 0; RESP 0; RESP 1; RESP 8; O2SAT 37
--- NOTE | 2022-10-19 09:26 | NUR.NOTE ---
Nursing Note: Accessed pt chart to get time of and time to morgue.
== END 2022-10-18 21:23 | disposition expired ==
LOC: ER 10-19 07:39
PROVIDERS: Emergency Provider Student in an Organized Health Care Education/Training Program; PCP Family Medicine
DX: I46.9 Cardiac arrest, cause unspecified (principal)